=== PATIENT | female | born 1960 | race Caucasian/White ===

== ENCOUNTER → 2017-01-03 | Outpatient (CLI) | payer MEDICARE, BC ==
--- NOTE | 2017-01-03 19:03 | MR ---
EXAMINATION TYPE: MR abdomen wo/w con DATE OF EXAM: 01/03/2017 COMPARISON: Outside CT abdomen October 14, 2016. HISTORY: Lung cancer and abdominal pain per order. Increased left-sided abdominal pain near G-tube pe r patient. Tumor behind stomach and pancreas. CONTRAST: Standard multiplanar, multisequence MRI departmental protocol utilizing 12 mL intravenous MultiHance gadolinium contrast. Scanning is of the abdomen. FINDINGS: Exam is suboptimal as is performed under routine abdominal imaging protocol and not dedicat ed pancreatic imaging protocol. There is redemonstration of epigastric mass just below left hemidiaphragm with indistinct margins fro m the posterior medial wall of the stomach and superior aspect of the distal pancreatic body. There i s heterogeneous postcontrast enhancement. Mass is difficult to accurately measure due to indistinct f at planes from stomach and pancreas measuring approximately 5.0 x 4.2 cm on axial image 93 series 80 1 x 2.7 cm craniocaudal dimension on coronal image 15. Pancreas inferior to this shows no suspicious ductal dilatation. Lesion is suspected anterior to normal size left adrenal gland seen best image 31 series 601. There are a few simple appearing cysts scattered throughout the liver. There is no concerning renal m ass or hydronephrosis. Spleen is unremarkable. No biliary dilatation is evident. Gallbladder is surgi acosta absent. There is artifact from surgical hardware in the lower lumbar spine. There is artifacts from percutane ous gastrostomy tube in the inferior body which is felt satisfactory in position. There is artifact f rom surgical change in the anterior abdominal wall is noted. IMPRESSION: Overall no significant change from outside CT, heterogeneous epigastric mass worrisome for neoplasm, differential includes metastatic lesion, pancreatic neoplasm, and gastric neoplasm. Consider endoscop ic ultrasound for sampling or possibly CT-guided fine-needle aspiration if has not been performed.
== END | disposition home or self-care (01) ==
LOC: RADMRIMAIN 12:12
PROVIDERS: ATTEND Internal Medicine Hematology & Oncology
DX: R93.5 Abnormal findings on diagnostic imaging of other abdominal regions, including retroperitoneum (principal); C34.90 Malignant neoplasm of unspecified part of unspecified bronchus or lung; R10.9 Unspecified abdominal pain
CPT/HCPCS: 74183; A9577

== ENCOUNTER 2017-02-27 11:38 | Emergency (ER) | payer MEDICARE, BC ==
--- NOTE | 2017-02-27 12:37 | ED ---
General Adult HPI - General Chief complaint: Weakness Stated complaint: LOW HEMOGLOBIN, SENT BY DR NICOLE Time Seen by Provider: 02/27/17 12:25 Source: patient, family, RN notes reviewed Mode of arrival: wheelchair Limitations: no limitations - History of Present Illness Initial comments: Patient is a pleasant 56-year-old female presenting to the emergency department with fatigue and weakness. Symptoms have progressed over several weeks. Patient has a known history of lung cancer with abdominal metastasis. Patient did have a Whipple procedure done secondary to this. Patient is currently undergoing intravenous chemotherapy. Patient feels weak and fatigued. Patient has dyspnea with exertion. Patient has palpitations with exertion. Patient feels near syncopal with exertion or standing. Patient was seen by Dr. Blake today and advised to come to the emergency department. Patient had blood work done with white blood cell count of 2. , hemoglobin 5.8, and platelet count of 21. Patient has had some gingival bleeding, mostly yesterday. None today. No black tarry stools. No other areas of bleeding. - Related Data Home Medications Medication Instructions Recorded Confirmed Acetaminophen [Tylenol Extra 500 mg PO DAILY PRN 02/27/17 02/27/17 Strength] Citalopram Hydrobromide [CeleXA] 20 mg PO DAILY 02/27/17 02/27/17 Cyanocobalamin [Vitamin B-12 1,000 mcg SQ Q90D 02/27/17 02/27/17 Injection] Diazepam [Valium] 5 mg PO TID 02/27/17 02/27/17 Fluticasone Nasal [place] [Flonase 1 spray EA NOSTRIL BID 02/27/17 02/27/17 Nasal [place]] Fluticasone/Salmeterol [Advair 1 puff INHALATION RT-HS 02/27/17 02/27/17 250-50 Diskus] Folic Acid 1 mg PO DAILY 02/27/17 02/27/17 Ipratropium [place] [Atrovent Hfa] 2 puff INHALATION RT-QID 02/27/17 02/27/17 LORazepam [Ativan] 1 mg PO TID 02/27/17 02/27/17 Metoclopramide Oral Soln [Reglan 10 mg PO Q6H 02/27/17 02/27/17 Oral Soln] Multivitamins, Thera [Multivitamin 1 tab PO DAILY 02/27/17 02/27/17 (formulary)] Omeprazole [PriLOSEC] 20 mg PO AC-BID 02/27/17 02/27/17 oxyCODONE HCL [Roxicodone] 5 mg PO Q4HR 02/27/17 02/27/17 Allergies Allergy/AdvReac Type Severity Reaction Status Date / Time cinnamon Allergy Anaphylaxis Verified 02/27/17 13:22 iron Allergy Rash/Hives Verified 02/27/17 13:22 morphine Allergy Rash/Hives Verified 02/27/17 13:22 Sulfa (Sulfonamide Allergy Rash/Hives Verified 02/27/17 13:22 Antibiotics) Review of Systems ROS Statement: Those systems with pertinent positive or pertinent negative responses have been documented in the HPI. ROS Other: All systems not noted in ROS Statement are negative. Constitutional: Denies: fever Eyes: Denies: eye pain ENT: Denies: ear pain Respiratory: Denies: cough Cardiovascular: Denies: chest pain Endocrine: Reports: fatigue Gastrointestinal: Reports: abdominal pain (Chronic and unchanged). Denies: melena, hematochezia Genitourinary: Denies: dysuria, hematuria Musculoskeletal: Denies: back pain Skin: Denies: rash Neurological: Denies: weakness Past Medical History Past Medical History: Cancer Additional Past Medical History / Comment(s): CANCER LUNG AND ABD( STOMACH AND PANCREAS) History of Any Multi-Drug Resistant Organisms: None Reported Additional Past Surgical History / Comment(s): FEEDING TUBE- G-TUBE, PORT A CATH, WHIPPLE SX- UNSUSCESSFUL Past Psychological History: No Psychological Hx Reported Smoking Status: Former smoker Past Alcohol Use History: None Reported Past Drug Use History: None Reported General Exam Limitations: no limitations General appearance: alert, in no apparent distress Head exam: Present: atraumatic Eye exam: Present: other (Pelvic conjunctiva) ENT exam: Present: normal oropharynx, other (Poor dentition however no swelling or bleeding.) Neck exam: Present: normal inspection Respiratory exam: Present: normal lung sounds bilaterally Cardiovascular Exam: Present: regular rate, normal rhythm GI/Abdominal exam: Present: soft, tenderness (Mild to moderate diffuse tenderness which patient states is chronic). Absent: distended Extremities exam: Present: normal inspection Neurological exam: Present: alert Psychiatric exam: Present: normal affect, normal mood Skin exam: Present: normal color Course Vital Signs 02/27/17 02/27/17 02/27/17 12:01 13:40 14:04 Temperature 98.9 F Pulse Rate 76 72 86 Respiratory 18 16 16 Rate Blood Pressure 113/55 119/65 137/76 O2 Sat by Pulse 100 99 99 Oximetry - Reevaluation(s) Reevaluation #1: 02/27/17 12:52 Case was discussed in detail with Dr. Nunez who recommends 2 units of PRBCs. He feels patient can be discharged following blood transfusion. Patient and family were updated. EKG Findings - EKG Comments: EKG Findings:: Normal sinus rhythm 78. For screening AV block CO of 204. QRS 70. QT 382. QTC 435. Normal axis. Normal QRS. Normal ST-T. Medical Decision Making - Lab Data Result diagrams: 02/27/17 13:21 02/27/17 13:21 Lab Results 02/27/17 02/27/17 02/27/17 Range/Units 13:21 13:21 13:21 WBC 2.4 L (3.8-10.6) k/uL RBC 1.72 L (3.80-5.40) m/uL Hgb 5.6 L* (11.4-16.0) gm/dL Hct 17.1 L* (34.0-46.0) % MCV 99.7 (80.0-100.0) fL MCH 32.8 (25.0-35.0) pg MCHC 32.9 (31.0-37.0) g/dL RDW 18.7 H (11.5-15.5) % Plt Count 22 L* (150-450) k/uL Neutrophils % (Manual) 33.0 % Lymphocytes % (Manual) 59.0 % Monocytes % (Manual) 6.0 % Eosinophils % (Manual) 2.0 % Neutrophils # (Manual) 0.8 L (1.3-7.7) k/uL Lymphocytes # (Manual) 1.4 (1.0-4.8) k/uL Monocytes # (Manual) 0.1 (0-1.0) k/uL Eosinophils # (Manual) 0.0 (0-0.7) k/uL Nucleated RBCs 0 (0-0) /100 WBC Manual Slide Review Performed Anisocytosis Slight Macrocytosis Moderate PT 10.5 (9.0-12.0) sec INR 1.0 (<1.2) APTT 27.1 (22.0-30.0) sec Sodium 136 L (137-145) mmol/L Potassium 3.8 (3.5-5.1) mmol/L Chloride 106 (98-107) mmol/L Carbon Dioxide 25 (22-30) mmol/L Anion Gap 5 mmol/L BUN 12 (7-17) mg/dL Creatinine 0.63 (0.52-1.04) mg/dL Est GFR (MDRD) Af Amer >60 (>60 ml/min/1.73 sqM) Est GFR (MDRD) Non-Af >60 (>60 ml/min/1.73 sqM) Glucose 78 (74-99) mg/dL Calcium 8.7 (8.4-10.2) mg/dL Total Bilirubin 0.3 (0.2-1.3) mg/dL AST 29 (14-36) U/L ALT 44 (9-52) U/L Alkaline Phosphatase 40 (38-126) U/L Total Protein 5.4 L (6.3-8.2) g/dL Albumin 3.2 L (3.5-5.0) g/dL Blood Type Blood Type Recheck Antibody Screen Crossmatch Spec Expiration Date 02/27/17 Range/Units 13:21 WBC (3.8-10.6) k/uL RBC (3.80-5.40) m/uL Hgb (11.4-16.0) gm/dL Hct (34.0-46.0) % MCV (80.0-100.0) fL MCH (25.0-35.0) pg MCHC (31.0-37.0) g/dL RDW (11.5-15.5) % Plt Count (150-450) k/uL Neutrophils % (Manual) % Lymphocytes % (Manual) % Monocytes % (Manual) % Eosinophils % (Manual) % Neutrophils # (Manual) (1.3-7.7) k/uL Lymphocytes # (Manual) (1.0-4.8) k/uL Monocytes # (Manual) (0-1.0) k/uL Eosinophils # (Manual) (0-0.7) k/uL Nucleated RBCs (0-0) /100 WBC Manual Slide Review Anisocytosis Macrocytosis PT (9.0-12.0) sec INR (<1.2) APTT (22.0-30.0) sec Sodium (137-145) mmol/L Potassium (3.5-5.1) mmol/L Chloride (98-107) mmol/L Carbon Dioxide (22-30) mmol/L Anion Gap mmol/L BUN (7-17) mg/dL Creatinine (0.52-1.04) mg/dL Est GFR (MDRD) Af Amer (>60 ml/min/1.73 sqM) Est GFR (MDRD) Non-Af (>60 ml/min/1.73 sqM) Glucose (74-99) mg/dL Calcium (8.4-10.2) mg/dL Total Bilirubin (0.2-1.3) mg/dL AST (14-36) U/L ALT (9-52) U/L Alkaline Phosphatase (38-126) U/L Total Protein (6.3-8.2) g/dL Albumin (3.5-5.0) g/dL Blood Type A Positive Blood Type Recheck No Antibody Screen NEGATIVE Crossmatch See Detail Spec Expiration Date 03/02/20172320 Disposition Clinical Impression: Anemia Disposition: HOME SELF-CARE Condition: Stable Instructions: Anemia (ED) Additional Instructions: Please follow-up to primary care physician and oncologist in the beginning of the week. Return for increased weakness, shortness of breath, fevers, bleeding , worsening symptoms or other concerns. Referrals: Ron Lee MD [Primary Care Provider] - 1-2 days Abdifatah Nicole MD [STAFF PHYSICIAN] - 1-2 days Time of Disposition: 14:46
[2017-02-27 13:39] LABS: Anisocytosis Slight; CHCM 34.3; HDW 2.46; MCH 32.8 pg (25.0-35.0); MCHC 32.9 g/dL (31.0-37.0); MCV 99.7 fL (80.0-100.0); Macrocytosis Moderate; Mean Platelet Volume 10.4; RBC 1.72 m/uL (3.80-5.40); RDW 18.7 % (11.5-15.5); WBC 2.4 k/uL (3.8-10.6); WBC (Perox) 2.42
[2017-02-27 13:42] VITALS: RESP 16
[2017-02-27 13:42] LABS: HCT 17.1 % (34.0-46.0); HGB 5.6 gm/dL (11.4-16.0)
[2017-02-27 13:43] LABS: Partial Thromboplastin Time 27.1 sec (22.0-30.0); Prothrombin Time 10.5 sec (9.0-12.0)
[2017-02-27 14:10] LABS: Add Differential Manual Differential
[2017-02-27 14:14] LABS: Nucleated Red Blood Cells 0 /100 WBC (0-0); Total Cells Counted 100
[2017-02-27 14:15] LABS: Manual Review Performed
[2017-02-27 14:31] LABS: ALT 44 U/L (9-52); AST 29 U/L (14-36); Alkaline Phosphatase 40 U/L (38-126); Anion Gap 5 mmol/L; Blood Urea Nitrogen 12 mg/dL (7-17); Calcium 8.7 mg/dL (8.4-10.2); Carbon Dioxide 25 mmol/L (22-30); Chloride 106 mmol/L (98-107); Glucose 78 mg/dL (74-99); Non-African American GFR(MDRD) >60 (>60 ml/min/1.73 sqM); Potassium 3.8 mmol/L (3.5-5.1); Sodium 136 mmol/L (137-145); Total Bilirubin 0.3 mg/dL (0.2-1.3); Total Protein 5.4 g/dL (6.3-8.2)
[2017-02-27 17:20] VITALS: BP 140/81; PULSE 64; TEMP 97.4
== END 2017-02-27 17:30 | disposition home or self-care (01) ==
LOC: EC 11:38
DX: D64.9 Anemia, unspecified (principal); Z85.07 Personal history of malignant neoplasm of pancreas; Z85.028 Personal history of other malignant neoplasm of stomach; Z85.118 Personal history of other malignant neoplasm of bronchus and lung; Z87.891 Personal history of nicotine dependence; Z88.2 Allergy status to sulfonamides; Z88.5 Allergy status to narcotic agent; Z91.048 Other nonmedicinal substance allergy status; Z91.018 Allergy to other foods; Z79.51 Long term (current) use of inhaled steroids; Z79.891 Long term (current) use of opiate analgesic; Z79.899 Other long term (current) drug therapy
CPT/HCPCS: 99285; 36415; 93005; 86900; 86901; 80053; 85025; 85610; 85730; 86850; 86920; P9016

== ENCOUNTER → 2017-03-26 | Outpatient (CLI) | payer MEDICARE, BC ==
[2017-03-26 07:51] LABS: Blood Urea Nitrogen 7 mg/dL (7-17); Non-African American GFR(MDRD) >60 (>60 ml/min/1.73 sqM)
--- NOTE | 2017-03-26 09:34 | CT ---
EXAMINATION TYPE: CT abdomen pelvis w con DATE OF EXAM: 03/26/2017 REFERENCE: NONE HISTORY: R10.84 generalized abdominal pain HISTORY: Patient complains of luq pain around her PEG tube. REFERENCE: NONE CT DLP: 330.2 mGy Automated exposure control for dose reduction was used. TECHNIQUE: Helical acquisition through the abdomen and pelvis was obtained following the oral ingesti on of with Oral Contrast and following intravenous administration of 100 mL of Omnipaque 300. The saman a was reformatted in axial, coronal and sagittal projections. FINDINGS: There are bullous changes at the right lung base. There is no pleural fluid. There is 2.8 mm of pericardial thickening or fluid. The heart is not enlarged. Within the abdomen, the gallbladder is been removed. The liver is normal in size. There are 2 small c ystic lesions, one in the anterior and one in the posterior segment of the right lobe of the liver. T hese were described previously. The spleen is unremarkable. Both adrenal glands are normal. Both kidneys demonstrate function and appear morphologically normal. There is no significant retroperitoneal, iliac or inguinal adenopathy. The uterus and ovaries are not visualized. The bladder is unremarkable. There is no significant diverticular change. There is thickening of the proximal transverse colon as well as the distal transverse colon. The desc ending colon is collapsed and it is difficult to assess wall thickness. The appendix is normal. Small bowel loops are unremarkable. There is no free fluid and no free air. There is been a previous interpedicular fusion at L4 and L5. There is been a laminectomy at these lev els. There is a degenerative grade 1 spondylolisthesis of C3 on C4. There is marked facet arthropathy at this level. No bony destructive lesion is seen. IMPRESSION: 1. THICKENING OF THE TRANSVERSE AND DESCENDING COLONS. CORRELATE FOR COLITIS. 2. EMPHYSEMATOUS CHANGE WITHIN THE LUNGS. 3. CYSTIC CHANGE WITHIN THE LIVER, PREVIOUSLY DESCRIBED. 4. POSTSURGICAL AND DEGENERATIVE CHANGE WITHIN THE SPINE. 5. 2.8 MM PERICARDIAL THICKENING OR FLUID.
== END | disposition home or self-care (01) ==
LOC: RADCTMAIN 07:19
PROVIDERS: ATTEND Surgery
DX: K76.89 Other specified diseases of liver (principal); K63.89 Other specified diseases of intestine; Z98.890 Other specified postprocedural states
CPT/HCPCS: 82565; 84520; 74177; 36415; Q9967

== ENCOUNTER → 2017-09-17 | Outpatient (CLI) | payer MEDICARE, BC ==
[2017-09-17 07:41] LABS: Blood Urea Nitrogen 20 mg/dL (7-17)
--- NOTE | 2017-09-17 20:41 | CT ---
EXAMINATION TYPE: CT abdomen pelvis w con DATE OF EXAM: 09/17/2017 COMPARISON: 03/26/2017 INDICATION: Lung CA, RUQ pain DLP: 998 mGycm, Automated exposure control for dose reduction was used. CONTRAST: 80 mL of Visipaque 320. Study performed with Oral Contrast TECHNIQUE: Axial images were obtained from above the diaphragm to the pubic rami in the axial plane a t 5 mm thick sections. Reconstructed images are reviewed on the computer in the coronal plane. FINDINGS: Limited CT sections are obtained the lung bases. The lung bases are clear. Minimal scarring above t he right diaphragm is not excluded emphysematous changes are present. CT ABDOMEN: Liver: There is a 0.7 cm cyst within the superior right lobe liver. This was present previously. Hans tional smaller punctate hypodensities are within the liver could be small additional cysts. These fran ear present previously. Spleen: Normal Pancreas: Normal Adrenal glands: The adrenal glands are normal. Gallbladder: Surgically absent Kidneys: No masses are evident. No hydronephrosis is present. No cysts are present. Delayed images were obtained through the kidneys, which remain unremarkable. Aorta: Vascular calcification is within the aorta. Inferior vena cava: Normal. CT PELVIS: Loops of bowel within the abdomen and pelvis are normal. There are loops of bowel which are incom pletely distended or lack oral contrast limiting their evaluation. Appendix: Normal as visualized. Urinary bladder: Normal. Genitourinary structures: Uterus and ovaries are not identified. Osseous structures: No suspicious lytic or sclerotic lesions. Postsurgical changes are within the low er lumbar spine. IMPRESSIONS: 1. Nonsuspicious findings appear stable from the comparison
== END | disposition home or self-care (01) ==
LOC: RADCTMAIN 07:06
PROVIDERS: ATTEND Internal Medicine Hematology & Oncology
DX: C34.11 Malignant neoplasm of upper lobe, right bronchus or lung (principal); R10.11 Right upper quadrant pain
CPT/HCPCS: 82565; 84520; 74177; 36415; Q9967

== ENCOUNTER 2017-10-11 15:41 | Inpatient (IN) | payer MEDICARE, BC ==
[2017-10-11] MEDS ORDERED: SODIUM CHLORIDE 0.9% 1,000 ML IV STA ×2 (16:30)
[2017-10-11] MEDS ORDERED: KETOROLAC 30 MG/ML 1 ML VIAL IVP STA (16:31)
--- NOTE | 2017-10-11 16:33 | ED ---
Abdominal Pain HPI - General Chief Complaint: Abdominal Pain Stated Complaint: Abd pain Time Seen by Provider: 10/11/17 16:15 Source: patient, family, RN notes reviewed Mode of arrival: ambulatory Limitations: no limitations - History of Present Illness Initial Comments: This is a patient with a history of lung cancer and is now metastatic to the stomach as well as history of pancreatic cancer who presents with complaints of feeling weak nausea vomiting abdominal pain some difficulty breathing. No overt fevers or chills or sweats he does look pale according to family members. She does have a history of anemia as well. MD Complaint: abdominal pain, other - Related Data Home Medications Medication Instructions Recorded Confirmed Acetaminophen [Tylenol Extra 500 mg PO DAILY PRN 02/27/17 10/11/17 Strength] Citalopram Hydrobromide [CeleXA] 20 mg PO DAILY 02/27/17 10/11/17 Diazepam [Valium] 5 mg PO TID 02/27/17 10/11/17 Fluticasone Nasal [place] [Flonase 1 spray EA NOSTRIL BID 02/27/17 10/11/17 Nasal [place]] Fluticasone/Salmeterol [Advair 1 puff INHALATION RT-HS 02/27/17 10/11/17 250-50 Diskus] Ipratropium [place] [Atrovent Hfa] 2 puff INHALATION RT-QID 02/27/17 10/11/17 Metoclopramide Oral Soln [Reglan 10 mg PO Q6H 02/27/17 10/11/17 Oral Soln] Multivitamins, Thera [Multivitamin 1 tab PO DAILY 02/27/17 10/11/17 (formulary)] Omeprazole [PriLOSEC] 20 mg PO AC-BID 02/27/17 10/11/17 oxyCODONE HCL [Roxicodone] 5 mg PO Q4HR 02/27/17 10/11/17 Opdivo (Unknown Dose) 1 dose IV Q14D 10/11/17 10/11/17 Pd-1 1 dose IV Q14D 10/11/17 10/11/17 Allergies Allergy/AdvReac Type Severity Reaction Status Date / Time cinnamon Allergy Anaphylaxis Verified 10/11/17 16:21 iron Allergy Rash/Hives Verified 10/11/17 16:21 levofloxacin [From Levaquin] Allergy Unknown Verified 10/11/17 16:21 morphine Allergy Rash/Hives Verified 10/11/17 16:21 Sulfa (Sulfonamide Allergy Rash/Hives Verified 10/11/17 16:21 Antibiotics) Review of Systems ROS Statement: Those systems with pertinent positive or pertinent negative responses have been documented in the HPI. ROS Other: All systems not noted in ROS Statement are negative. Past Medical History Past Medical History: Cancer Additional Past Medical History / Comment(s): CANCER LUNG AND ABD( STOMACH AND PANCREAS) History of Any Multi-Drug Resistant Organisms: None Reported Additional Past Surgical History / Comment(s): FEEDING TUBE- G-TUBE, PORT A CATH, WHIPPLE SX- UNSUSCESSFUL Past Psychological History: No Psychological Hx Reported Smoking Status: Former smoker Past Alcohol Use History: None Reported Past Drug Use History: None Reported General Exam - General Exam Comments Initial Comments: Is a well-developed asthenic appearing female Limitations: no limitations General appearance: alert, anxious, in distress Head exam: Present: atraumatic, normocephalic, normal inspection Eye exam: Present: normal appearance, PERRL, EOMI. Absent: scleral icterus, conjunctival injection, periorbital swelling ENT exam: Present: mucous membranes dry Neck exam: Present: normal inspection. Absent: tenderness, meningismus, lymphadenopathy Respiratory exam: Present: normal lung sounds bilaterally. Absent: respiratory distress, wheezes, rales, rhonchi, stridor Cardiovascular Exam: Present: regular rate, normal rhythm, normal heart sounds. Absent: systolic murmur, diastolic murmur, rubs, gallop, clicks GI/Abdominal exam: Present: soft, tenderness (Tenderness palpation no definite guarding rebound masses or bruits), normal bowel sounds. Absent: distended, guarding, rebound, rigid Extremities exam: Present: normal inspection, full ROM, normal capillary refill. Absent: tenderness, pedal edema, joint swelling, calf tenderness Back exam: Present: normal inspection Neurological exam: Present: alert, oriented X3, CN II-XII intact Psychiatric exam: Present: normal affect, normal mood Skin exam: Present: warm, dry, intact, normal color. Absent: rash Course Vital Signs 10/11/17 10/11/17 15:48 17:55 Temperature 97.3 F L Pulse Rate 66 60 Respiratory 18 17 Rate Blood Pressure 164/74 174/80 O2 Sat by Pulse 100 100 Oximetry - Reevaluation(s) Reevaluation #1: 10/11/17 18:06 Reevaluation patient revealed that she still nauseated has some abdominal discomfort. Medical Decision Making - Medical Decision Making I did discuss the findings with the patient family as well as with . Patient will be admitted nothing by mouth IV fluids and nausea control pain control - Lab Data Result diagrams: 10/11/17 16:37 10/11/17 16:37 Lab Results 10/11/17 10/11/17 10/11/17 Range/Units 16:37 16:37 16:37 WBC 9.2 (3.8-10.6) k/uL RBC 3.56 L (3.80-5.40) m/uL Hgb 12.1 (11.4-16.0) gm/dL Hct 34.9 (34.0-46.0) % MCV 98.1 (80.0-100.0) fL MCH 33.9 (25.0-35.0) pg MCHC 34.5 (31.0-37.0) g/dL RDW 13.1 (11.5-15.5) % Plt Count 289 (150-450) k/uL Neutrophils % 88 % Lymphocytes % 7 % Monocytes % 4 % Eosinophils % 0 % Basophils % 0 % Neutrophils # 8.1 H (1.3-7.7) k/uL Lymphocytes # 0.6 L (1.0-4.8) k/uL Monocytes # 0.4 (0-1.0) k/uL Eosinophils # 0.0 (0-0.7) k/uL Basophils # 0.0 (0-0.2) k/uL Sodium 140 (137-145) mmol/L Potassium 3.7 (3.5-5.1) mmol/L Chloride 104 (98-107) mmol/L Carbon Dioxide 24 (22-30) mmol/L Anion Gap 12 mmol/L BUN 18 H (7-17) mg/dL Creatinine 0.95 (0.52-1.04) mg/dL Est GFR (CKD-EPI)AfAm 78 (>60 ml/min/1.73 sqM) Est GFR (CKD-EPI)NonAf 68 (>60 ml/min/1.73 sqM) Glucose 159 H (74-99) mg/dL Calcium 10.0 (8.4-10.2) mg/dL Magnesium 1.9 (1.6-2.3) mg/dL Total Bilirubin 0.7 (0.2-1.3) mg/dL AST 23 (14-36) U/L ALT 30 (9-52) U/L Alkaline Phosphatase 91 (38-126) U/L Total Creatine Kinase 50 (30-135) U/L CK-MB (CK-2) 0.4 (0.0-2.4) ng/mL CK-MB (CK-2) Rel Index 0.8 Troponin I <0.012 (0.000-0.034) ng/mL Total Protein 6.8 (6.3-8.2) g/dL Albumin 4.1 (3.5-5.0) g/dL Amylase 48 (30-110) U/L Lipase 31 (23-300) U/L - Radiology Data Radiology results: report reviewed (I did review the imaging and reports no acute findings. Rectal lungs the abdominal x-ray does show evidence of ileus.) , image reviewed Disposition Clinical Impression: Intractable vomiting with nausea, Abdominal pain, Ileus, Lung cancer Disposition: ADMITTED IP TO THIS [facility] Condition: Stable Referrals: Alaina Calderón MD [STAFF PHYSICIAN] - 1-2 days
[2017-10-11] MEDS ORDERED: ONDANSETRON 4 MG/2 ML VIAL IVP STA (16:48)
[2017-10-11 16:57] LABS: Basophils % (A) 0 %; Eosinophils % (A) 0 %; HCT 34.9 % (34.0-46.0); HGB 12.1 gm/dL (11.4-16.0); Lymphocytes # (A) 0.6 k/uL (1.0-4.8); Lymphocytes % (A) 7 %; MCH 33.9 pg (25.0-35.0); MCHC 34.5 g/dL (31.0-37.0); MCV 98.1 fL (80.0-100.0); Mean Platelet Volume 6.9; Monocytes # (A) 0.4 k/uL (0-1.0); Monocytes % (A) 4 %; Neutrophils # (A) 8.1 k/uL (1.3-7.7); Neutrophils % (A) 88 %; Platelet Count 289 k/uL (150-450); RBC 3.56 m/uL (3.80-5.40); RDW 13.1 % (11.5-15.5); WBC 9.2 k/uL (3.8-10.6)
--- NOTE | 2017-10-11 17:13 | XR ---
EXAMINATION TYPE: XR chest 2V DATE OF EXAM: 10/11/2017 COMPARISON: NONE HISTORY: Chest pain TECHNIQUE: Frontal and lateral views of the chest are obtained. FINDINGS: There is pulmonary hyperinflation and biapical lucency as well as increased anterior poste rior diameter of the chest compatible with underlying COPD. Right-sided Mediport terminates in the ca voatrial junction. There is no focal air space opacity, pleural effusion, or pneumothorax seen. The cardiac silhouette size is within normal limits. The osseous structures are intact. Multilevel mild degenerative changes of the thoracic spine are noted. Cholecystectomy clips are seen within the righ t upper quadrant. The patient's known lung cancer should be followed with CT. IMPRESSION: Emphysematous changes with no acute cardiopulmonary process.
--- NOTE | 2017-10-11 17:15 | XR ---
EXAMINATION TYPE: XR abdomen 1V DATE OF EXAM: 10/11/2017 5:04 PM CLINICAL HISTORY: Abdominal pain. TECHNIQUE: Single supine KUB image of the abdomen is obtained. COMPARISON: None. FINDINGS: Lucencies along the right and left abdomen extend beyond the egjck-on-laob on the left and therefore artifactual rather than gross pneumoperitoneum. rScattered multiple loops of small bowel ar e mildly dilated up to 3.5 cm. There is gaseous distention of the stomach. Postsurgical changes of th e lower lumbar spine and cholecystectomy clips are noted. The lung bases are clear and the osseous st ructures are intact. IMPRESSION: Mild gaseous dilatation of multiple loops of small bowel favoring ileus. Short-term follo w-up exam is recommended to evaluate for progression or resolution.
[2017-10-11 17:24] LABS: Creatine Kinase 50 U/L (30-135)
[2017-10-11 17:36] LABS: Creatine Kinase MB 0.4 ng/mL (0.0-2.4); Troponin I <0.012 ng/mL (0.000-0.034)
[2017-10-11] MEDS ORDERED: fentaNYL (PF) 50 MCG/ML 2 ML AMP IV STA (17:36)
[2017-10-11 17:37] LABS: Albumin 4.1 g/dL (3.5-5.0); Magnesium 1.9 mg/dL (1.6-2.3); Potassium 3.7 mmol/L (3.5-5.1); Total Bilirubin 0.7 mg/dL (0.2-1.3); Total Protein 6.8 g/dL (6.3-8.2)
[2017-10-11] MEDS ORDERED: METOCLOPRAMIDE 5 MG/ML 2 ML VIAL IVP STA (17:58)
[2017-10-11] MEDS ORDERED: NALOXONE 0.4 MG/ML 1 ML VIAL IV PRN (18:08)
[2017-10-11] MEDS ORDERED: 0.9% NACL WITH KCL 20 MEQ/L 1,000 ML IV ONE (18:45)
[2017-10-11] MEDS ORDERED: IPRATROPIUM-ALBUTEROL 3 ML NEB INHALATION PRN (19:58)
[2017-10-11] MEDS: 0.9% NACL WITH KCL 20 MEQ/L 1,000 ML IV SCH (22:00)
[2017-10-11] MEDS: ACETAMINOPHEN IV (For NPO) 1,000 MG in SALINE 1 100ML.BAG IVPB SCH (23:44)
[2017-10-11] MEDS: METOCLOPRAMIDE 5 MG/ML 2 ML VIAL IVP PRN (23:44)
[2017-10-12] MEDS ORDERED: IPRATROPIUM-ALBUTEROL 3 ML NEB INHALATION SCH (02:00)
[2017-10-12 03:39] VITALS: BMI 19.9
[2017-10-12] MEDS: IPRATROPIUM-ALBUTEROL 3 ML NEB INHALATION SCH ×5 (04:35→20:34)
[2017-10-12] MEDS: 0.9% NACL WITH KCL 20 MEQ/L 1,000 ML IV SCH ×2 (05:47→22:44)
[2017-10-12] MEDS: METOCLOPRAMIDE 5 MG/ML 2 ML VIAL IVP PRN ×2 (05:47→19:40)
[2017-10-12] MEDS: ACETAMINOPHEN IV (For NPO) 1,000 MG in SALINE 1 100ML.BAG IVPB SCH ×4 (05:47→22:44)
[2017-10-12] MEDS: PANTOPRAZOLE 40 MG/10 ML VIAL IV SCH (10:28)
[2017-10-12] MEDS ORDERED: ACETAMINOPHEN TAB 500 MG TAB PO PRN (11:56)
[2017-10-12] MEDS ORDERED: NON-FORMULARY DRUG (Omeprazole 20 MG) PO SCH (12:00)
[2017-10-12] MEDS ORDERED: NON-FORMULARY DRUG (Ipratropium Bromide [Atrovent Hfa] 2 PUFF) INHALATION SCH (12:00)
[2017-10-12] MEDS ORDERED: METOCLOPRAMIDE ORAL SOLN 10 MG/10 ML CUP PO SCH (12:00)
--- NOTE | 2017-10-12 16:22 | P.HPIM ---
History of Present Illness H&P Date: 10/12/17 Chief Complaint: nausea and vomiting associated with diarrhea 56 years old female patient of Dr. Lee and Dr. 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 Last bowel movement 6 PM yesterday. She states she has 3 bowel movements yesterday. Labs done in the ER was unremarkable except for glucose of 159. Abdominal x-ray suggested some finding of EDS. Patient was kept nothing by mouth after midnight. On evaluation this morning patient denied any nausea, vomiting, abdominal pain, change in bowel habits. She denies any bowel movement since morning. Denies any fever or chills. Patient admits that she takes pain medication and gets constipated intermittently. She was not using any bowel regimen as she was having regular bowel movements on previous use of medication for constipation and she ended abruptly stopped it as she thought she would not needed. Patient was started on clear liquid diet this morning which patient could not tolerate due to increased nausea. Dr. Browning to see the patient for ileus Review of Systems Constitutional: Reports chronic pain, Reports weight loss, Denies anorexia, Denies chills, Denies fatigue, Denies fever, Denies lethargy, Denies malaise Eyes: denies dry eye, denies itching, denies pain, denies photophobia Ears, nose, mouth and throat: Denies ant. neck pain, Denies dysphagia, Denies epistaxis, Denies headache, Denies hoarseness Cardiovascular: Denies chest pain, Denies decreased exercise tolerance, Denies dyspnea on exertion, Denies edema, Denies high blood pressure, Denies irregular heart beat, Denies leg edema Respiratory: Denies congestion, Denies cough with sputum, Denies home oxygen Gastrointestinal: Reports abdominal pain, Reports change in bowel habits, Reports loss of appetite, Reports nausea, Reports vomiting, Denies bloating, Denies BRBPR, Denies heartburn, Denies hematemesis, Denies hematochezia Musculoskeletal: Denies arm numbness/tingling, Denies leg numbness/tingling, Denies limitation of motion, Denies morning stiffness, Denies muscle cramps, Denies muscle weakness Integumentary: Denies darkening of skin, Denies onychomycosis, Denies rash, Denies striae, Denies wounds Neurological: Denies aphasia, Denies burning pain, Denies change in mentation, Denies hearing difficulties, Denies lack of coordination, Denies loss of vision , Denies motor disturbance, Denies syncope Psychiatric: Denies anxiety attacks, Denies depression Endocrine: Denies excessive sweating, Denies excessive thirst, Denies heat intolerance, Denies high blood sugars, Denies palpitations Past Medical History Past Medical History: Cancer Additional Past Medical History / Comment(s): CANCER LUNG METASTATIC TO STOMACH AND BLOOD VESSELS close to THE PANCREAS History of Any Multi-Drug Resistant Organisms: None Reported Additional Past Surgical History / Comment(s): FEEDING TUBE- G-TUBE, PORT A CATH, WHIPPLE SX- UNSUSCESSFUL Past Psychological History: No Psychological Hx Reported Smoking Status: Former smoker Past Alcohol Use History: None Reported Past Drug Use History: None Reported - Past Family History Mother Family Medical History: No Reported History Additional Family Medical History / Comment(s): 3 uncles of cancer but does not know what kind. No history of cancer in mother or father. Patient is has 2 kids with no significant medical problems Medications and Allergies Home Medications Medication Instructions Recorded Confirmed Type Acetaminophen [Tylenol Extra 500 mg PO DAILY PRN 02/27/17 10/11/17 History Strength] Citalopram Hydrobromide [CeleXA] 20 mg PO DAILY 02/27/17 10/11/17 History Diazepam [Valium] 5 mg PO TID 02/27/17 10/11/17 History Fluticasone Nasal [place] [Flonase 1 spray EA NOSTRIL BID 02/27/17 10/11/17 History Nasal [place]] Fluticasone/Salmeterol [Advair 1 puff INHALATION RT-HS 02/27/17 10/11/17 History 250-50 Diskus] Ipratropium [place] [Atrovent Hfa] 2 puff INHALATION RT-QID 02/27/17 10/11/17 History Metoclopramide Oral Soln [Reglan 10 mg PO Q6H 02/27/17 10/11/17 History Oral Soln] Multivitamins, Thera [Multivitamin 1 tab PO DAILY 02/27/17 10/11/17 History (formulary)] Omeprazole [PriLOSEC] 20 mg PO AC-BID 02/27/17 10/11/17 History oxyCODONE HCL [Roxicodone] 5 mg PO Q4HR 02/27/17 10/11/17 History Opdivo (Unknown Dose) 1 dose IV Q14D 10/11/17 10/11/17 History Pd-1 1 dose IV Q14D 10/11/17 10/11/17 History Allergies Allergy/AdvReac Type Severity Reaction Status Date / Time cinnamon Allergy Anaphylaxis Verified 10/11/17 16:21 iron Allergy Rash/Hives Verified 10/11/17 16:21 levofloxacin [From Levaquin] Allergy Unknown Verified 10/11/17 16:21 morphine Allergy Rash/Hives Verified 10/11/17 16:21 Sulfa (Sulfonamide Allergy Rash/Hives Verified 10/11/17 16:21 Antibiotics) Physical Exam Vitals: Vital Signs Temp Pulse Pulse Resp BP BP Pulse Ox 10/12/17 09:36 88 10/12/17 09:25 88 18 10/12/17 08:00 53 L 18 10/12/17 07:00 98.8 F 53 L 18 111/58 97 10/12/17 00:00 16 10/11/17 23:00 99.5 F 61 16 117/61 97 10/11/17 19:34 97.6 F 66 16 155/72 99 10/11/17 17:55 60 17 174/80 100 10/11/17 15:48 97.3 F L 66 18 164/74 100 Intake and Output 10/12/17 10/12/17 10/12/17 06:59 14:59 22:59 Intake Total 1000 875 Balance 1000 875 Intake: Intake, IV Titration 1000 875 Amount 0.9% NaCl with KCl 20 Meq 1000 875 /l 1,000 ml @ 125 mls/hr IV .Q8H ONE Rx#:[id number] Other: Voiding Method Toilet # Voids 1 - Constitutional General appearance: average body habitus, cooperative, no acute distress - EENT Eyes: no edentulous, EOMI, PERRLA, no photophobia, no ptosis Ears: bilateral: normal - Neck Neck: no lymphadenopathy, normal ROM Carotids: bilateral: upstroke normal - Respiratory Respiratory: bilateral: CTA, negative: diminished, rales, rhonchi - Cardiovascular Rhythm: regular Heart sounds: normal: S1, S2 Abnormal Heart Sounds: no systolic murmur, no diastolic murmur, no click ankle Peripheral Edema: absent: None dorsalis pedis Peripheral Pulses: bilateral: Normal - Gastrointestinal Scars present in the epigastric and the upper quadrant of the abdomen. Some nodularity felt in the epigastric area but nontender to palpate General gastrointestinal: no distended, normal bowel sounds, no organomegaly, soft - Integumentary Integumentary: no calor, no cyanotic - Neurologic Neurologic: CNII-XII intact - Musculoskeletal Musculoskeletal: generalized weakness, strength equal bilaterally - Psychiatric Psychiatric: A&O x's 3, appropriate affect Results CBC & Chem 7: 10/11/17 16:37 10/11/17 16:37 Labs: Abnormal Lab Results - Last 24 Hours (Table) 10/11/17 10/11/17 Range/Units 16:37 16:37 RBC 3.56 L (3.80-5.40) m/uL Neutrophils # 8.1 H (1.3-7.7) k/uL Lymphocytes # 0.6 L (1.0-4.8) k/uL BUN 18 H (7-17) mg/dL Glucose 159 H (74-99) mg/dL Thrombosis Risk Factor Assmnt - DVT/VTE Prophylaxis DVT/VTE Prophylaxis: Pharmacologic Prophylaxis ordered - Choose All That Apply Any of the Below Risk Factors Present?: Yes Each Factor Represents 1 point: Age 41-60 years Other Risk Factors: Yes Each Risk Factor Represents 2 Points: Malignancy Other congenital or acquired thrombophilia - If yes, enter type in comment: No Thrombosis Risk Factor Assessment Total Risk Factor Score: 3 Thrombosis Risk Factor Assessment Level: Moderate Risk Assessment and Plan Plan: #1 intractable nausea/vomiting likely secondary to ileus - keep patient nothing by mouth. Trial of clear liquid diet not tolerated. Dr. Tucker consulted. Unlikely to be obstruction secondary to metastatic of cancer. Likely secondary to increased narcotic use. Repeat abdominal x-ray tomorrow. Follow up with Dr. Dorantes as outpatient. Continue Reglan for motility #2 history of metastatic lung cancer, stable. History of Whipple procedure which was unsuccessful as per patient. No shortness of breath or abdominal pain on examination. On top table every 14 days as outpatient #3 COPD continue Symbicort. #4 depression continue citalopram 20 mg daily #5 GI prophylaxis with home dose of Prilosec 20 mg twice a day #6 anxiety continue Valium 5 mg 3 times a day as needed #7 DVT prior prophylaxis Lovenox Disposition patient could not tolerate oral diet, needs management of years may need 1-2 inpatient nights.
[2017-10-12] MEDS: DIAZEPAM 5 MG TAB PO SCH ×2 (16:55→21:40)
[2017-10-12] MEDS ORDERED: METOCLOPRAMIDE 5 MG/ML 2 ML VIAL IVP SCH (18:00)
[2017-10-12] MEDS: SYMBICORT 80-4.5 MCG INHALER INHALATION SCH (20:34)
[2017-10-12] MEDS: FLUTICASONE 50MCG/SPRAY NASAL 16GM EA NOSTRIL SCH (20:34)
[2017-10-13] MEDS: METOCLOPRAMIDE 5 MG/ML 2 ML VIAL IVP PRN ×4 (01:34→20:52)
[2017-10-13] MEDS: 0.9% NACL WITH KCL 20 MEQ/L 1,000 ML IV SCH ×2 (06:53→08:41)
[2017-10-13] MEDS: IPRATROPIUM-ALBUTEROL 3 ML NEB INHALATION SCH ×4 (07:53→20:08)
--- NOTE | 2017-10-13 08:13 | XR ---
EXAMINATION TYPE: XR abdomen 1V DATE OF EXAM: 10/13/2017 7:53 AM CLINICAL HISTORY: Ileitis per order. History of tumor undergoing treatment with abdominal pain per p atient. TECHNIQUE: Two Upright KUB images of the abdomen are obtained. COMPARISON: CT abdomen and pelvis September 17, 2017. Abdominal x-ray October 11, 2017 FINDINGS: Gas is seen in nondistended stomach. Gas is seen in nondistended bowel along the periphery including rectum. There is interval improvement in gas prominent small bowel loops. There is some [place] of small bowel gas on current study. Visualized small bowel loops lower abdomen and pelvis show marked improvement from recent x-ray. Cholecystectomy clips are again seen. There are additional scattered clips throughout the upper abdom en. There is postsurgical change lower lumbar spine redemonstrated. There is suspected tiny right ple ural effusion and right basilar atelectasis. No pneumoperitoneum is identified. IMPRESSION: Overall nonspecific but likely nonobstructive bowel gas pattern. Interval improvement fro m recent x-ray in degree of gaseous dilated and prominent bowel loops.
[2017-10-13] MEDS: DIAZEPAM 5 MG TAB PO SCH ×3 (08:33→20:52)
[2017-10-13] MEDS: PANTOPRAZOLE 40 MG/10 ML VIAL IV SCH (08:40)
[2017-10-13] MEDS: CITALOPRAM HYDROBROMIDE 20 MG TAB PO SCH (08:41)
[2017-10-13] MEDS: ENOXAPARIN 40 MG/0.4 ML SYRINGE SQ SCH (08:41)
[2017-10-13] MEDS: FLUTICASONE 50MCG/SPRAY NASAL 16GM EA NOSTRIL SCH ×2 (08:41→20:53)
--- NOTE | 2017-10-13 13:44 | P.DS ---
Providers Date of admission: 10/11/17 18:17 Expected date of discharge: 10/14/17 Attending physician: Ami Pvaon MD Consults: 10/12/17 13:47 Consult Physician Routine Consulting Provider: Anthony Browning Consult Reason/Comments: ileus Do you want consulting provider notified?: Yes Primary care physician: Ron [place] Hospital Course: 56 years old female patient of Dr. Lee and Dr. 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 Last bowel movement 6 PM yesterday. She states she has 3 bowel movements yesterday. Labs done in the ER was unremarkable except for glucose of 159. Abdominal x-ray suggested some finding of EDS. Patient was kept nothing by mouth after midnight. On evaluation this morning patient denied any nausea, vomiting, abdominal pain, change in bowel habits. She denies any bowel movement since morning. Denies any fever or chills. Patient admits that she takes pain medication and gets constipated intermittently. She was not using any bowel regimen as she was having regular bowel movements on previous use of medication for constipation and she ended abruptly stopped it as she thought she would not needed. Patient was started on clear liquid diet this morning which patient could not tolerate due to increased nausea. Dr. Browning to see the patient for ileus. 10/13 patient able to tolerate full liquid diet. Abdominal x-ray negative for any ileus or colitis. Patient will follow Dr. Nicole as outpatient for metastatic lung cancer 10/14 Patient able to tolerate liquid diet. CT abdomen showed periportal edema which is likely secondary to chemotherapy. There is some bile duct dialation that appears to have worsened from previous images. Case discussed with Dr. Browning who doesnot feel there is progression of tumour. Patient will follow with Dr. Nicole for further recommendation #1 intractable nausea/vomiting likely secondary to ileus secondary to increased narcotic use. #2 history of metastatic lung cancer, stable with history of Whipple procedure #3 COPD #4 depression #5 anxiety Disposition discharge home with self-care CC a copy of discharge to Dr. Lee Patient Condition at Discharge: Stable Plan - Discharge Summary New Discharge Prescriptions: Continue Ipratropium [place] [Atrovent Hfa] 2 puff INHALATION RT-QID Fluticasone Nasal [place] [Flonase Nasal [place]] 1 spray EA NOSTRIL BID Multivitamins, Thera [Multivitamin (formulary)] 1 tab PO DAILY Fluticasone/Salmeterol [Advair 250-50 Diskus] 1 puff INHALATION RT-HS Citalopram Hydrobromide [CeleXA] 20 mg PO DAILY Acetaminophen [Tylenol Extra Strength] 500 mg PO DAILY PRN PRN Reason: Pain Diazepam [Valium] 5 mg PO TID oxyCODONE HCL [Roxicodone] 5 mg PO Q4HR Metoclopramide Oral Soln [Reglan Oral Soln] 10 mg PO Q6H Opdivo (Unknown Dose) 1 dose IV Q14D Pd-1 1 dose IV Q14D Changed Omeprazole [PriLOSEC] 20 mg PO AC-BRKFST #0 Discharge Medication List Acetaminophen [Tylenol Extra Strength] 500 mg PO DAILY PRN 02/27/17 [History] Citalopram Hydrobromide [CeleXA] 20 mg PO DAILY 02/27/17 [History] Diazepam [Valium] 5 mg PO TID 02/27/17 [History] Fluticasone Nasal [place] [Flonase Nasal [place]] 1 spray EA NOSTRIL BID 02/27/17 [ History] Fluticasone/Salmeterol [Advair 250-50 Diskus] 1 puff INHALATION RT-HS 02/27/17 [ History] Ipratropium [place] [Atrovent Hfa] 2 puff INHALATION RT-QID 02/27/17 [History] Metoclopramide Oral Soln [Reglan Oral Soln] 10 mg PO Q6H 02/27/17 [History] Multivitamins, Thera [Multivitamin (formulary)] 1 tab PO DAILY 02/27/17 [History ] oxyCODONE HCL [Roxicodone] 5 mg PO Q4HR 02/27/17 [History] Opdivo (Unknown Dose) 1 dose IV Q14D 10/11/17 [History] Pd-1 1 dose IV Q14D 10/11/17 [History] Omeprazole [PriLOSEC] 20 mg PO AC-BRKFST #0 10/13/17 [Rx] Follow up Appointment(s)/Referral(s): Anthony Browning MD [Medical Doctor] - 10/21/17 2:30 pm Ron Lee MD [Primary Care Provider] - 10/20/17 2:00 pm Abdifatah Nicole MD [STAFF PHYSICIAN] - 10/15/17 4:00 pm () Patient Instructions/Handouts: Acute Abdominal Pain (DC), Ileus (DC) Activity/Diet/Wound Care/Special Instructions: Soft diet Activity as tolerated Discharge Disposition: HOME SELF-CARE
[2017-10-13] MEDS ORDERED: IOPAMIDOL-300 CONTRAST 30 ML VIAL (ORAL USE) PO PRN (14:23)
[2017-10-13] MEDS ORDERED: RX INFO: IV CONTRAST WAS GIVEN 1 EACH MISC MISCELLANE PRN (14:23)
--- NOTE | 2017-10-13 15:37 | P.PN ---
Subjective Progress Note Date: 10/13/17 56 years old female patient of Dr. Lee and Dr. 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 Last bowel movement 6 PM yesterday. She states she has 3 bowel movements yesterday. Labs done in the ER was unremarkable except for glucose of 159. Abdominal x-ray suggested some finding of EDS. Patient was kept nothing by mouth after midnight. On evaluation this morning patient denied any nausea, vomiting, abdominal pain, change in bowel habits. She denies any bowel movement since morning. Denies any fever or chills. Patient admits that she takes pain medication and gets constipated intermittently. She was not using any bowel regimen as she was having regular bowel movements on previous use of medication for constipation and she ended abruptly stopped it as she thought she would not needed. Patient was started on clear liquid diet this morning which patient could not tolerate due to increased nausea. Dr. Browning to see the patient for ileus 10/13: Patient able to tolerate full liquid diet today. She'll complaining of epigastric tenderness at the site of her malignancy. Abdominal x-ray negative for any ileus with nonspecific bowel gas pattern. Dr. Browning to see the patient today. If patient is able to tolerate diet will advance to regular diet. Objective - Vital Signs Vital signs: Vital Signs Temp 98.9 F 10/13/17 07:00 Pulse 62 10/13/17 08:02 Resp 18 10/13/17 07:00 BP 124/70 10/13/17 07:00 Pulse Ox 96 10/13/17 07:00 Intake & Output 10/12/17 10/13/17 10/13/17 18:59 06:59 18:59 Intake Total 875 2130 Balance 875 2130 Intake: Intake, IV Titration 875 1300 Amount 0.9% NaCl with KCl 20 Meq 875 /l 1,000 ml @ 125 mls/hr IV .Q8H ONE Rx#:[id number] 0.9% NaCl with KCl 20 Meq 1200 /l 1,000 ml @ 125 mls/hr IV .Q8H [facility] Rx#:[id number] ACETAMINOPHEN IV (For NPO 100 ) 1,000 mg In Saline 1 100ml.bag @ 400 mls/hr IVPB Q6HR [facility] Rx#: [id number] Oral 830 Other: Voiding Method Toilet Toilet Toilet # Voids 1 - Exam - Constitutional General appearance: average body habitus, cooperative, no acute distress - EENT Eyes: no edentulous, EOMI, PERRLA, no photophobia, no ptosis Ears: bilateral: normal - Neck Neck: no lymphadenopathy, normal ROM Carotids: bilateral: upstroke normal - Respiratory Respiratory: bilateral: CTA, negative: diminished, rales, rhonchi - Cardiovascular Rhythm: regular Heart sounds: normal: S1, S2 Abnormal Heart Sounds: no systolic murmur, no diastolic murmur, no click ankle Peripheral Edema: absent: None dorsalis pedis Peripheral Pulses: bilateral: Normal - Gastrointestinal Scars present in the epigastric and the upper quadrant of the abdomen. Some nodularity felt in the epigastric area , tender to palpate General gastrointestinal: no distended, normal bowel sounds, no organomegaly, soft - Integumentary Integumentary: no calor, no cyanotic - Neurologic Neurologic: CNII-XII intact - Musculoskeletal Musculoskeletal: generalized weakness, strength equal bilaterally - Psychiatric Psychiatric: A&O x's 3, appropriate affect - Labs CBC & Chem 7: 10/11/17 16:37 10/11/17 16:37 Assessment and Plan Plan: #1 intractable nausea/vomiting likely secondary to ileus - diet advanced to full liquids today patient tolerated well. Dr. Tucker consulted. Unlikely to be obstruction secondary to metastatic of cancer. Likely secondary to increased narcotic use. Repeat abdominal x-ray today with nonspecific small bowel gas pattern Continue Reglan for motility. #2 history of metastatic lung cancer, stable. History of Whipple procedure which was unsuccessful as per patient. No shortness of breath or abdominal pain on examination. On top table every 14 days as outpatient #3 COPD continue Symbicort. #4 depression continue citalopram 20 mg daily #5 GI prophylaxis with home dose of Prilosec 20 mg twice a day #6 anxiety continue Valium 5 mg 3 times a day as needed #7 DVT prior prophylaxis Lovenox #8 epigastric tenderness likely secondary to gastritis. Patient is taking Prilosec at home with meals. Will switch to once daily before breakfast
--- NOTE | 2017-10-13 15:59 | P.GSCN ---
<Pily Mustafa - Last Filed: 10/13/17 15:48> History of Present Illness Consult date: 10/13/17 Reason for Consult: Abdominal x-ray possible ileus History of present illness: 56-year-old female being seen the evaluated at the request of the attending for a surgical eval after a abdominal x-ray of the abdomen showed nondistended bowel along the peripheral including the rectum for possible ileus. Patient states that she's been having bilateral abdominal pain over the last several days and the last bowel movement was 48 hours ago. Patient does have a past medical history metastatic lung cancer to the stomach and pancreas. Status post Whipple procedure done one year prior. According to the patient wasn't successful. Patient states that she has been having intermittent episodes of being constipated felt that it was due to the pain medication she takes for chronic pain. Patient states is a nausea sensation but has not had any emesis and a decrease appetite. Patient did have a CAT scan of the abdomen and pelvis with contrast done on September 17 reviewing the report it did show loop of bowel within the abdomen pelvis a normal nonsuspicious findings it appeared stable compared to a prior imaging study Review of Systems Essentially unremarkable except as mentioned in the present illness Past Medical History Past Medical History: Cancer Additional Past Medical History / Comment(s): CANCER LUNG METASTATIC TO STOMACH AND BLOOD VESSELS close to THE PANCREAS History of Any Multi-Drug Resistant Organisms: None Reported Additional Past Surgical History / Comment(s): FEEDING TUBE- G-TUBE, PORT A CATH, WHIPPLE SX- UNSUSCESSFUL Past Psychological History: No Psychological Hx Reported Smoking Status: Former smoker Past Alcohol Use History: None Reported Past Drug Use History: None Reported - Past Family History Mother Family Medical History: No Reported History Additional Family Medical History / Comment(s): 3 uncles of cancer but does not know what kind. No history of cancer in mother or father. Patient is has 2 kids with no significant medical problems Medications and Allergies Home Medications Medication Instructions Recorded Confirmed Type Acetaminophen [Tylenol Extra 500 mg PO DAILY PRN 02/27/17 10/11/17 History Strength] Citalopram Hydrobromide [CeleXA] 20 mg PO DAILY 02/27/17 10/11/17 History Diazepam [Valium] 5 mg PO TID 02/27/17 10/11/17 History Fluticasone Nasal [place] [Flonase 1 spray EA NOSTRIL BID 02/27/17 10/11/17 History Nasal [place]] Fluticasone/Salmeterol [Advair 1 puff INHALATION RT-HS 02/27/17 10/11/17 History 250-50 Diskus] Ipratropium [place] [Atrovent Hfa] 2 puff INHALATION RT-QID 02/27/17 10/11/17 History Metoclopramide Oral Soln [Reglan 10 mg PO Q6H 02/27/17 10/11/17 History Oral Soln] Multivitamins, Thera [Multivitamin 1 tab PO DAILY 02/27/17 10/11/17 History (formulary)] oxyCODONE HCL [Roxicodone] 5 mg PO Q4HR 02/27/17 10/11/17 History Opdivo (Unknown Dose) 1 dose IV Q14D 10/11/17 10/11/17 History Pd-1 1 dose IV Q14D 10/11/17 10/11/17 History Omeprazole [PriLOSEC] 20 mg PO AC-BRKFST #0 10/13/17 10/11/17 Rx Allergies Allergy/AdvReac Type Severity Reaction Status Date / Time cinnamon Allergy Anaphylaxis Verified 10/11/17 16:21 iron Allergy Rash/Hives Verified 10/11/17 16:21 levofloxacin [From Levaquin] Allergy Unknown Verified 10/11/17 16:21 morphine Allergy Rash/Hives Verified 10/11/17 16:21 Sulfa (Sulfonamide Allergy Rash/Hives Verified 10/11/17 16:21 Antibiotics) Surgical - Exam Vital Signs Temp Pulse Resp BP Pulse Ox 97.3 F L 66 18 164/74 100 10/11/17 15:48 10/11/17 15:48 10/11/17 15:48 10/11/17 15:48 10/11/17 15:48 GENERAL APPEARANCE: thin frail looking older than stated age sitting up in bed talkative alert, oriented, in no acute distress. VITAL SIGNS: Reviewed HEENT: Head is normocephalic and atraumatic. Pupils are equal and reactive. The nares are patent. Oropharynx is clear without lesions. NECK: Supple without lymphadenopathy. Traches midline. HEART: S1, S2. Regular rate and rhythm. Denies chest pain LUNGS: No crackles or wheezes are heard. Adequate air movement bilaterally ABDOMEN: Soft, reports mild tenderness to the bilateral lower quadrant , nondistended with good bowel sounds. No peritoneal signs. No palpable organomegaly or masses. Reports a nausea sensation no emesis states last bowel movement 48 hours ago EXTREMITIES: Normal skin color and turgor. No cyanosis, rash, ulceration, clubbing or edema. Radial pedal pulses are 2/4 bilaterally. NEUROLOGICAL: No focal deficits. Strength and sensation are grossly intact. Results - Labs 10/11/17 16:37 10/11/17 16:37 Assessment and Plan Assessment: Impression Present on admission intractable nausea vomiting likely due to an ileus History of metastatic lung cancer with a prior Whipple procedure COPD no evidence of an exacerbation Anxiety disorder nonspecified Depressive disorder nonspecified Plan Follow up on the pending CT abdomen further recommendations after reviewed by Dr. Turner . Patient is able to tolerate a diet will advance to a regular diet No evidence of an acute surgical abdomen at this time We'll follow with you Continue medical management per the attending Surgical consultation note dictated for dr turner The above impression and plan of care have been discussed and directed by signing physician. Pily Mustafa nurse practitioner acting as scribe for signing physician. <Anthony Turner - Last Filed: 10/13/17 16:19> Surgical - Exam Vital Signs Temp Pulse Resp BP Pulse Ox 97.3 F L 66 18 164/74 100 10/11/17 15:48 10/11/17 15:48 10/11/17 15:48 10/11/17 15:48 10/11/17 15:48 Results - Labs 10/11/17 16:37 10/11/17 16:37 Assessment and Plan Assessment: As above. Patient known to our service. Known to have advanced malignancy in the upper abdomen. Last CT scan from 1 month ago reviewed. We'll repeat CT abdomen at this time. If symptoms persist and CAT scan nondiagnostic consider upper GI small bowel series versus upper endoscopy.
--- NOTE | 2017-10-13 18:20 | CT ---
EXAMINATION TYPE: CT abdomen w con DATE OF EXAM: 10/13/2017 COMPARISON: Prior CT abdomen 09/17/2017 HISTORY: Upper abdominal pain with vomiting CT DLP: 622 mGycm Automated exposure control for dose reduction was used. TECHNIQUE: Helical acquisition of images was performed from the lung bases through the top of iliac crest to include entire abdomen. CONTRAST: Performed with Oral Contrast and with IV Contrast, patient injected with 100 mL of Isovue 300. FINDINGS: LUNG BASES: Stable LIVER/GB: There is been some interval progression of periportal low-attenuation within the liver, gal lbladder is absent. Possible small cysts within the liver are subcentimeter and stable. Bile ducts ar e prominent and have progressively dilated in the interval. . PANCREAS: No significant abnormality is seen. SPLEEN: Unchanged ADRENALS: Stable KIDNEYS: No significant interval change is seen. BOWEL: No significant abnormality is seen. No bowel obstruction. LYMPH NODES: No significant abnormality is appreciated. OSSEOUS STRUCTURES: Postop changes are noted in the lower lumbar spine as on prior exam FREE AIR: No Free Air visible ASCITES: None visible. RETROPERITONEAL ADENOPATHY: No Retroperitoneal Adenopathy visible. IMPRESSION: PERIPORTAL EDEMA, PROGRESSION OF BILE DUCT DILATION, CORRELATE FOR POSSIBLE HEPATOCELLULAR DISEASE.
[2017-10-13] MEDS: SYMBICORT 80-4.5 MCG INHALER INHALATION SCH (20:08)
[2017-10-14] MEDS ORDERED: PANTOPRAZOLE 40 MG TABLET PO SCH (07:30)
[2017-10-14] MEDS: METOCLOPRAMIDE 5 MG/ML 2 ML VIAL IVP PRN (07:40)
[2017-10-14] MEDS: ENOXAPARIN 40 MG/0.4 ML SYRINGE SQ SCH (07:48)
[2017-10-14] MEDS: DIAZEPAM 5 MG TAB PO SCH (07:48)
[2017-10-14] MEDS: CITALOPRAM HYDROBROMIDE 20 MG TAB PO SCH (07:49)
[2017-10-14 08:33] VITALS: BP 172/79; PULSE 48; RESP 18; TEMP 97.9
[2017-10-14 08:52] LABS: Albumin 3.9 g/dL (3.5-5.0); Potassium 4.3 mmol/L (3.5-5.1); Total Bilirubin 0.5 mg/dL (0.2-1.3); Total Protein 6.3 g/dL (6.3-8.2)
[2017-10-14] MEDS: IPRATROPIUM-ALBUTEROL 3 ML NEB INHALATION SCH ×2 (09:17→11:59)
--- NOTE | 2017-10-14 11:59 | P.PN ---
Subjective Progress Note Date: 10/14/17 Principal diagnosis: Abdominal pain Patient says her pain is improved. She is tolerating her diet. No nausea or vomiting. CAT scan showed some edema in the right upper quadrant likely related to recent chemotherapy effects on the tumor. Objective - Vital Signs Vital signs: Vital Signs Temp 97.9 F 10/14/17 07:00 Pulse 48 L 10/14/17 07:00 Resp 18 10/14/17 07:00 BP 172/79 10/14/17 07:00 Pulse Ox 99 10/14/17 07:00 Intake & Output 10/13/17 10/14/17 10/14/17 18:59 06:59 18:59 Other: Voiding Method Toilet Toilet Toilet # Voids 2 1 - Exam Abdomen: Soft, nondistended, mild right upper quadrant tenderness - Labs CBC & Chem 7: 10/11/17 16:37 10/14/17 07:43 Assessment and Plan (1) Abdominal pain Narrative/Plan: Continue diet as tolerated. Stable for discharge from my standpoint. If symptoms persist would consider upper endoscopy. Current Visit: Yes Status: Acute Code(s): R10.9 - UNSPECIFIED ABDOMINAL PAIN SNOMED Code(s): 75959094
== END 2017-10-14 12:38 | disposition home or self-care (01) | DRG 389 ==
LOC: EC 15:41 → 5MS5E 18:17 → 5ONC 20:10
PROVIDERS: ADMIT Internal Medicine; ATTEND Internal Medicine
DX: K56.7 Ileus, unspecified (principal); C34.90 Malignant neoplasm of unspecified part of unspecified bronchus or lung; C78.89 Secondary malignant neoplasm of other digestive organs; F32.9 Major depressive disorder, single episode, unspecified; F41.9 Anxiety disorder, unspecified; G89.29 Other chronic pain; J44.9 Chronic obstructive pulmonary disease, unspecified; R60.9 Edema, unspecified; T45.1X5A Adverse effect of antineoplastic and immunosuppressive drugs, initial encounter; T40.605A Adverse effect of unspecified narcotics, initial encounter; L29.9 Pruritus, unspecified; Z79.899 Other long term (current) drug therapy; Z79.891 Long term (current) use of opiate analgesic; Z88.1 Allergy status to other antibiotic agents; Z88.5 Allergy status to narcotic agent; Z88.2 Allergy status to sulfonamides; Z88.8 Allergy status to other drugs, medicaments and biological substances; Z91.018 Allergy to other foods; Z90.411 Acquired partial absence of pancreas; Z87.891 Personal history of nicotine dependence
CPT/HCPCS: 36415; 71046; 74018; 74160; 80053; 82150; 82550; 82553; 83690; 83735; 84484; 85025; 94640; 96361; 96374; 96375; 99284

== ENCOUNTER → 2018-02-19 | Outpatient (CLI) | payer MEDICARE, BC ==
--- NOTE | 2018-02-19 15:11 | CT ---
EXAMINATION TYPE: CT abdomen pelvis wo con DATE OF EXAM: 02/19/2018 COMPARISON: 10/13/2017 INDICATION: Lung Cancer, Abdominal Pain DLP: 258.30 mGycm, Automated exposure control for dose reduction was used. CONTRAST: 0 mL of Isovue 300. Abnormal laboratory renal function tests. Study performed with Oral Contrast TECHNIQUE: Axial images were obtained from above the diaphragm to the pubic rami in the axial plane a t 5 mm thick sections. Reconstructed images are reviewed on the computer in the coronal plane. FINDINGS: Limited CT sections are obtained the lung bases. The lung bases are clear. Emphysematous bleb at th e right lung base is evident. CT ABDOMEN: Liver: There is a 0.7 cm hypodensity at the superior right dome of diaphragm may be a small hepatic c yst. This is too small to classify. This was present previously and appears stable. Portal hypodensit y is less well visualized on current exam. There are otherwise appears unremarkable. Spleen: Normal Pancreas: Normal Adrenal glands: The adrenal glands are normal. Gallbladder: Surgically absent. Kidneys: No masses are evident. No hydronephrosis is present. No cysts are present. No renal stone s are evident. Aorta: Vascular calcification is within the aorta. Inferior vena cava: Normal. CT PELVIS: Loops of bowel within the abdomen and pelvis are normal. There are loops of bowel lacking oral co ntrast limiting their evaluation. Appendix: Normal as visualized. Urinary bladder: Normal. Genitourinary structures: Vaginal cuff region appears normal. Correlate with patient's surgical histo ry. Adnexal regions are clear. Osseous structures: No suspicious lytic or sclerotic lesions. Pedicle screws are present within the l ower lumbar spine fixation. Facet degenerative changes are present IMPRESSIONS: 1. No suspicious changes to suggest metastatic disease from lung cancer
== END | disposition home or self-care (01) ==
LOC: RADPROMAIN 10:19
PROVIDERS: ATTEND Internal Medicine Hematology & Oncology
DX: R10.84 Generalized abdominal pain (principal); C34.11 Malignant neoplasm of upper lobe, right bronchus or lung
CPT/HCPCS: 82565; 84520; 74176; J1642

== ENCOUNTER → 2018-08-12 | Outpatient (CLI) | payer MEDICARE, BC ==
--- NOTE | 2018-08-12 19:01 | CT ---
EXAMINATION TYPE: CT abdomen pelvis w con DATE OF EXAM: 08/12/2018 COMPARISON: 02/12/1718 HISTORY: Hx Lung ca, mets in stomach. Pt c/o abdomen pain hx sx whipple CT DLP: 353.30 mGycm Automated exposure control for dose reduction was used. TECHNIQUE: Helical acquisition of images was performed from the lung bases through the pelvis. CONTRAST: Performed with Oral Contrast and with IV Contrast, patient injected with 80 mL of Isovue 300. FINDINGS: Lung bases are clear. There is no pleural effusion. There is no pericardial effusion. There is 1 cm c yst in the right lobe of the liver. The bile ducts are not dilated. There are clips from cholecystect wesley. Spleen appears normal. There is no evidence of a pancreatic mass. There is some thickening of th e right lateral wall of the gastric fundus.. There is no sign of pancreatic mass. There are surgical clips in the upper abdomen. There is no adrenal mass. Kidneys show satisfactory contrast opacification. There is no hydronephrosi s. There is no evidence of a bowel obstruction. There is retained fecal material in large bowel. Appe ndix appears normal. I see no retroperitoneal adenopathy. Ureters are not dilated. Bladder distends s moothly. There is no inguinal hernia. There is no free fluid in the pelvis. There is no sign of free air. There is no evidence of a bowel obstruction. There is a first-degree L3-4 spondylolisthesis. There is lumbar spine fusion surgery noted. There is no lumbar compression fracture. IMPRESSION: PREVIOUS SURGERY. THERE IS AT LEAST PARTIAL RESECTION OF THE PANCREAS. THERE IS SOME THICKENING OF TH E RIGHT LATERAL WALL OF THE GASTRIC FUNDUS THAT COULD RELATE TO A GASTRIC MASS. THIS APPEARS UNCHANGE D. Mild constipation. Stable hepatic cyst.
== END | disposition home or self-care (01) ==
LOC: RADCTMAIN 16:36
PROVIDERS: ATTEND Internal Medicine Hematology & Oncology
DX: C34.11 Malignant neoplasm of upper lobe, right bronchus or lung (principal); K31.89 Other diseases of stomach and duodenum; K59.00 Constipation, unspecified; K76.89 Other specified diseases of liver
CPT/HCPCS: 82565; 84520; 74177; 36415; Q9967

== ENCOUNTER 2018-10-12 23:55 | Inpatient (IN) | payer MEDICARE, BC ==
[2018-10-13] MEDS ORDERED: HYDROmorphone 0.5 MG/0.5 ML SYRINGE IVP STA (00:44)
[2018-10-13] MEDS ORDERED: SODIUM CHLORIDE 0.9% 1,000 ML IV STA (00:44)
[2018-10-13] MEDS ORDERED: ONDANSETRON 4 MG/2 ML VIAL IVP STA ×2 (00:44→02:39)
[2018-10-13] MEDS ORDERED: diphenhydrAMINE 50 MG/ML 1 ML VIAL IVP STA (00:44)
[2018-10-13 01:28] LABS: Basophils # (A) 0.1 k/uL (0-0.2); Basophils % (A) 1 %; Eosinophils # (A) 0.2 k/uL (0-0.7); Eosinophils % (A) 2 %; HCT 35.3 % (34.0-46.0); HGB 11.6 gm/dL (11.4-16.0); Lymphocytes # (A) 1.2 k/uL (1.0-4.8); Lymphocytes % (A) 13 %; MCH 32.8 pg (25.0-35.0); MCHC 32.9 g/dL (31.0-37.0); MCV 99.8 fL (80.0-100.0); Mean Platelet Volume 7.3; Monocytes # (A) 0.5 k/uL (0-1.0); Monocytes % (A) 5 %; Neutrophils # (A) 7.7 k/uL (1.3-7.7); Neutrophils % (A) 79 %; Platelet Count 266 k/uL (150-450); RBC 3.54 m/uL (3.80-5.40); RDW 13.1 % (11.5-15.5); WBC 9.7 k/uL (3.8-10.6)
[2018-10-13 01:38] LABS: Albumin 4.4 g/dL (3.5-5.0); Calcium 10.6 mg/dL (8.4-10.2); Potassium 3.9 mmol/L (3.5-5.1); Total Bilirubin 0.4 mg/dL (0.2-1.3)
[2018-10-13] MEDS ORDERED: FAMOTIDINE 20 MG/2 ML VIAL IV STA (02:39)
--- NOTE | 2018-10-13 02:50 | ED ---
General Adult HPI - General Source: patient, family Mode of arrival: wheelchair Limitations: no limitations <Haley Alcazar - Last Filed: 10/13/18 03:40> <Shell Roman - Last Filed: 10/13/18 21:52> - General Chief complaint: Recheck/Abnormal Lab/Rx Stated complaint: Adverse Drug Reaction Time Seen by Provider: 10/13/18 00:17 - History of Present Illness Initial comments: 57-year-old female patient presents to the emergency department today for evaluation of upper abdominal pain, shortness of breath, and vomiting. Patient states symptoms started approximately 30 minutes after taking a new medication, venlafaxine. Patient states his first time taking the medication this evening. Patient states she is having some mild chest pain while vomiting. Denies any radiation of the pain through to her back. Patient states she feels shaky when she is having a vomiting episode. She denies any fevers or chills with this. Denies any recent travel or sick contacts. Denies any hematuria, dysuria, urina ry frequency, urinary urgency. Patient denies any recent rash, diarrhea, constipation, back pain, numbness, tingling, dizziness, weakness, headache, visual changes, or any other complaints. (Haley Alcazar) - Related Data Home Medications Medication Instructions Recorded Confirmed Ipratropium [place] [Atrovent Hfa] 2 puff INHALATION RT-QID 02/27/17 10/13/18 Albuterol Nebulized [Ventolin 2.5 mg INHALATION RT-QID PRN 10/13/18 10/13/18 Nebulized] Fluticasone/Salmeterol [Advair 1 puff INHALATION RT-BID 10/13/18 10/13/18 250-50 Diskus] fentaNYL 25MCG/HR PATCH [Duragesic 1 patch TRANSDERM Q72H 10/13/18 10/13/18 25MCG/HR] Previous Rx's Medication Instructions Recorded Omeprazole [PriLOSEC] 20 mg PO AC-BRKFST #0 10/13/17 Allergies Allergy/AdvReac Type Severity Reaction Status Date / Time cinnamon Allergy Anaphylaxis Verified 10/13/18 00:02 iron Allergy Rash/Hives Verified 10/13/18 00:02 levofloxacin [From Levaquin] Allergy Unknown Verified 10/13/18 00:02 morphine Allergy Rash/Hives Verified 10/13/18 00:02 Sulfa (Sulfonamide Allergy Rash/Hives Verified 10/13/18 00:02 Antibiotics) venlafaxine Allergy Wheezing Verified 10/13/18 08:07 Review of Systems ROS Other: All systems not noted in ROS Statement are negative. <OttonielHaley M - Last Filed: 10/13/18 03:40> ROS Other: All systems not noted in ROS Statement are negative. <Shell Roman - Last Filed: 10/13/18 21:52> ROS Statement: Those systems with pertinent positive or pertinent negative responses have been documented in the HPI. Past Medical History Past Medical History: Cancer Additional Past Medical History / Comment(s): CANCER LUNG METASTATIC TO STOMACH AND BLOOD VESSELS close to THE PANCREAS History of Any Multi-Drug Resistant Organisms: None Reported Additional Past Surgical History / Comment(s): FEEDING TUBE- G-TUBE, PORT A CATH, WHIPPLE SX- UNSUSCESSFUL Past Psychological History: No Psychological Hx Reported Smoking Status: Former smoker Past Alcohol Use History: None Reported Past Drug Use History: None Reported - Past Family History Mother Family Medical History: No Reported History Additional Family Medical History / Comment(s): 3 uncles of cancer but does not know what kind. No history of cancer in mother or father. Patient is has 2 kids with no significant medical problems <BrinamarybethHaley Irina - Last Filed: 10/13/18 03:40> General Exam Limitations: no limitations General appearance: alert, in no apparent distress, other (This is a well- developed, well-nourished adult female patient in mild distress due to vomiting) Eye exam: Present: normal appearance, PERRL, EOMI. Absent: scleral icterus, conjunctival injection, periorbital swelling ENT exam: Present: normal exam, normal oropharynx, mucous membranes moist Neck exam: Present: normal inspection. Absent: tenderness, meningismus, lymphadenopathy Respiratory exam: Present: normal lung sounds bilaterally. Absent: respiratory distress, wheezes, rales, rhonchi, stridor Cardiovascular Exam: Present: regular rate, normal rhythm, normal heart sounds. Absent: systolic murmur, diastolic murmur, rubs, gallop, clicks GI/Abdominal exam: Present: soft, tenderness (Left upper quadrant tenderness), normal bowel sounds. Absent: distended, guarding, rebound, rigid Neurological exam: Present: alert, oriented X3, CN II-XII intact Psychiatric exam: Present: normal affect, normal mood Skin exam: Present: warm, dry, intact, normal color. Absent: rash <Haley Alcazar Irina - Last Filed: 10/13/18 03:40> Course Vital Signs 10/12/18 10/13/18 23:59 04:02 Temperature 97.7 F Pulse Rate 73 63 Respiratory 24 16 Rate Blood Pressure 159/79 134/80 O2 Sat by Pulse 100 98 Oximetry EKG Findings - EKG Comments: EKG Findings:: EKG obtained at 0106 shows sinus rhythm with marked sinus arrhythmia and first-degree AV block. Ventricular rate is 64, MO interval 220, QRS duration is 88, QT 442, QTc 455. No evidence of ST elevation or depression. <Haley Alcazar M - Last Filed: 10/13/18 03:40> Medical Decision Making - Lab Data Result diagrams: 10/13/18 01:14 10/13/18 01:14 - Radiology Data Radiology results: report reviewed <Haley Alcazar - Last Filed: 10/13/18 03:40> - Lab Data Result diagrams: 10/13/18 01:14 10/13/18 01:14 <Shell Roman - Last Filed: 10/13/18 21:52> - Medical Decision Making 57-year-old female patient presents to the emergency department today for evaluation of vomiting, left upper quadrant abdominal pain, and shortness of breath. Patient states symptoms started approximately 30 minutes after taking her first dose of venlafaxine. Physical examination did reveal some left upper quadrant tenderness. Lungs are clear to auscultation with good air movement. EKG showed sinus rhythm with a sinus arrhythmia and first-degree AV block, no ST changes. Labs reviewed, did reveal CO2 of 19, anion gap of 10, blood sugar of 200, normal troponin. She did have mild elevation in BUN and creatinine which seems to be chronic for her. Patient does not have a history of diabetes. Patient did receive multiple doses of nausea medication in the emergency department. Upon reevaluation patient states she has still been vomiting and just does not feel well. She does not feel comfortable being discharged home at this time. We will admit to observation for intractable vomiting. (Haley Alcazar) Patient care was discussed with the PA who evaluated the patient is a patient with metastatic lung cancer as well as a history of pancreatic cancer status post Whipple presenting with intractable nausea and vomiting and evidence of dehydration. Given the patient's multiple medical comorbidities and persistent intractable nausea and vomiting I do feel she warrants admission to the hospital. Patient care was discussed with admitting physician Dr. Callahan per the patient's primary care physician 's admission preference. Dr. Callahan accepts The admission. (Shell Roman) - Lab Data Lab Results 10/13/18 10/13/18 10/13/18 Range/Units 01:14 01:14 01:14 WBC 9.7 (3.8-10.6) k/uL RBC 3.54 L (3.80-5.40) m/uL Hgb 11.6 (11.4-16.0) gm/dL Hct 35.3 (34.0-46.0) % MCV 99.8 (80.0-100.0) fL MCH 32.8 (25.0-35.0) pg MCHC 32.9 (31.0-37.0) g/dL RDW 13.1 (11.5-15.5) % Plt Count 266 (150-450) k/uL Neutrophils % 79 % Lymphocytes % 13 % Monocytes % 5 % Eosinophils % 2 % Basophils % 1 % Neutrophils # 7.7 (1.3-7.7) k/uL Lymphocytes # 1.2 (1.0-4.8) k/uL Monocytes # 0.5 (0-1.0) k/uL Eosinophils # 0.2 (0-0.7) k/uL Basophils # 0.1 (0-0.2) k/uL Sodium 138 (137-145) mmol/L Potassium 3.9 (3.5-5.1) mmol/L Chloride 109 H (98-107) mmol/L Carbon Dioxide 19 L (22-30) mmol/L Anion Gap 10 mmol/L BUN 27 H (7-17) mg/dL Creatinine 1.07 H (0.52-1.04) mg/dL Est GFR (CKD-EPI)AfAm 67 (>60 ml/min/1.73 sqM) Est GFR (CKD-EPI)NonAf 58 (>60 ml/min/1.73 sqM) Glucose 208 H (74-99) mg/dL POC Glucose (mg/dL) (75-99) mg/dL POC Glu Field Sales Representative ID Plasma Lactic Acid Isaiah 2.0 (0.7-2.0) mmol/L Calcium 10.6 H (8.4-10.2) mg/dL Total Bilirubin 0.4 (0.2-1.3) mg/dL AST 27 (14-36) U/L ALT 27 (9-52) U/L Alkaline Phosphatase 75 (38-126) U/L Troponin I (0.000-0.034) ng/mL Total Protein 7.0 (6.3-8.2) g/dL Albumin 4.4 (3.5-5.0) g/dL Amylase 69 (30-110) U/L Lipase 53 (23-300) U/L Urine Color Urine Appearance (Clear) Urine pH (5.0-8.0) Ur Specific [place] (1.001-1.035) Urine Protein (Negative) Urine Glucose (UA) (Negative) Urine Ketones (Negative) Urine Blood (Negative) Urine Nitrite (Negative) Urine Bilirubin (Negative) Urine Urobilinogen (<2.0) mg/dL Ur Leukocyte Esterase (Negative) Urine RBC (0-5) /hpf Urine WBC (0-5) /hpf Ur Squamous Epith Cells (0-4) /hpf Acetone, Qual (Negative) 10/13/18 10/13/18 10/13/18 Range/Units 01:14 03:34 07:40 WBC (3.8-10.6) k/uL RBC (3.80-5.40) m/uL Hgb (11.4-16.0) gm/dL Hct (34.0-46.0) % MCV (80.0-100.0) fL MCH (25.0-35.0) pg MCHC (31.0-37.0) g/dL RDW (11.5-15.5) % Plt Count (150-450) k/uL Neutrophils % % Lymphocytes % % Monocytes % % Eosinophils % % Basophils % % Neutrophils # (1.3-7.7) k/uL Lymphocytes # (1.0-4.8) k/uL Monocytes # (0-1.0) k/uL Eosinophils # (0-0.7) k/uL Basophils # (0-0.2) k/uL Sodium (137-145) mmol/L Potassium (3.5-5.1) mmol/L Chloride (98-107) mmol/L Carbon Dioxide (22-30) mmol/L Anion Gap mmol/L BUN (7-17) mg/dL Creatinine (0.52-1.04) mg/dL Est GFR (CKD-EPI)AfAm (>60 ml/min/1.73 sqM) Est GFR (CKD-EPI)NonAf (>60 ml/min/1.73 sqM) Glucose (74-99) mg/dL POC Glucose (mg/dL) 155 H (75-99) mg/dL POC Glu Field Sales Representative ID Aparna Eckert Plasma Lactic Acid Isaiah (0.7-2.0) mmol/L Calcium (8.4-10.2) mg/dL Total Bilirubin (0.2-1.3) mg/dL AST (14-36) U/L ALT (9-52) U/L Alkaline Phosphatase (38-126) U/L Troponin I <0.012 (0.000-0.034) ng/mL Total Protein (6.3-8.2) g/dL Albumin (3.5-5.0) g/dL Amylase (30-110) U/L Lipase (23-300) U/L Urine Color Urine Appearance (Clear) Urine pH (5.0-8.0) Ur Specific [place] (1.001-1.035) Urine Protein (Negative) Urine Glucose (UA) (Negative) Urine Ketones (Negative) Urine Blood (Negative) Urine Nitrite (Negative) Urine Bilirubin (Negative) Urine Urobilinogen (<2.0) mg/dL Ur Leukocyte Esterase (Negative) Urine RBC (0-5) /hpf Urine WBC (0-5) /hpf Ur Squamous Epith Cells (0-4) /hpf Acetone, Qual Negative (Negative) 10/13/18 10/13/18 Range/Units 08:30 11:26 WBC (3.8-10.6) k/uL RBC (3.80-5.40) m/uL Hgb (11.4-16.0) gm/dL Hct (34.0-46.0) % MCV (80.0-100.0) fL MCH (25.0-35.0) pg MCHC (31.0-37.0) g/dL RDW (11.5-15.5) % Plt Count (150-450) k/uL Neutrophils % % Lymphocytes % % Monocytes % % Eosinophils % % Basophils % % Neutrophils # (1.3-7.7) k/uL Lymphocytes # (1.0-4.8) k/uL Monocytes # (0-1.0) k/uL Eosinophils # (0-0.7) k/uL Basophils # (0-0.2) k/uL Sodium (137-145) mmol/L Potassium (3.5-5.1) mmol/L Chloride (98-107) mmol/L Carbon Dioxide (22-30) mmol/L Anion Gap mmol/L BUN (7-17) mg/dL Creatinine (0.52-1.04) mg/dL Est GFR (CKD-EPI)AfAm (>60 ml/min/1.73 sqM) Est GFR (CKD-EPI)NonAf (>60 ml/min/1.73 sqM) Glucose (74-99) mg/dL POC Glucose (mg/dL) 151 H (75-99) mg/dL POC Glu Field Sales Representative ID Aparna Eckert Plasma Lactic Acid Isaiah (0.7-2.0) mmol/L Calcium (8.4-10.2) mg/dL Total Bilirubin (0.2-1.3) mg/dL AST (14-36) U/L ALT (9-52) U/L Alkaline Phosphatase (38-126) U/L Troponin I (0.000-0.034) ng/mL Total Protein (6.3-8.2) g/dL Albumin (3.5-5.0) g/dL Amylase (30-110) U/L Lipase (23-300) U/L Urine Color Light Yellow Urine Appearance Clear (Clear) Urine pH 7.0 (5.0-8.0) Ur Specific [place] 1.010 (1.001-1.035) Urine Protein Negative (Negative) Urine Glucose (UA) Negative (Negative) Urine Ketones Negative (Negative) Urine Blood Trace H (Negative) Urine Nitrite Negative (Negative) Urine Bilirubin Negative (Negative) Urine Urobilinogen <2.0 (<2.0) mg/dL Ur Leukocyte Esterase Negative (Negative) Urine RBC 6 H (0-5) /hpf Urine WBC 1 (0-5) /hpf Ur Squamous Epith Cells 1 (0-4) /hpf Acetone, Qual (Negative) - Radiology Data Two-view x-ray of the abdomen was obtained. Report was reviewed in its entirety. Impression by Dr. Loyd shows no acute findings. (Haley Alcazar) Disposition Decision to Admit Reason: Admit from EC Decision Date: 10/13/18 Decision Time: 03:43 <Haley Alcazar - Last Filed: 10/13/18 03:40> <Shell Roman - Last Filed: 10/13/18 21:52> Clinical Impression: Intractable vomiting, Hyperglycemia Disposition: ADMITTED IP TO THIS [facility] Condition: Serious
[2018-10-13] MEDS ORDERED: NALOXONE 0.4 MG/ML 1 ML VIAL IV PRN (03:43)
[2018-10-13] MEDS: SODIUM CHLORIDE 0.9% 1,000 ML IV SCH ×3 (04:31→17:58)
[2018-10-13 07:41] LABS: Glucose,Whole Blood 155 mg/dL (75-99)
[2018-10-13 09:06] LABS: Appearance,Urine Clear (Clear); Bilirubin,Urine Negative (Negative); Blood,Urine Trace (Negative); Color,Urine Light Yellow; Glucose,Urine (UA) Negative (Negative); Ketones,Urine Negative (Negative); Leukocyte Esterase,Urine Negative (Negative); Nitrite,Urine Negative (Negative); Protein,Urine Negative (Negative); RBC,Urine 6 /hpf (0-5); Squamous Epithelial Cell,Urine 1 /hpf (0-4); Urobilinogen,Urine <2.0 mg/dL (<2.0); WBC,Urine 1 /hpf (0-5)
[2018-10-13] MEDS: SYMBICORT 80-4.5 MCG INHALER INHALATION SCH ×2 (09:45→20:15)
[2018-10-13] MEDS: PANTOPRAZOLE 40 MG TABLET PO SCH (09:56)
[2018-10-13 11:27] LABS: Glucose,Whole Blood 151 mg/dL (75-99)
[2018-10-13] MEDS: ONDANSETRON 4 MG/2 ML VIAL IVP PRN ×2 (11:35→20:56)
--- NOTE | 2018-10-13 11:52 | XR ---
EXAM: XR Abdomen, 2 Views CLINICAL HISTORY: adverse reaction to med, vomiting TECHNIQUE: Frontal view of the abdomen/pelvis with upright view of the abdomen. COMPARISON: No relevant prior studies available. FINDINGS: Intraperitoneal space: No free air. Gastrointestinal tract: Nonobstructed bowel gas pattern. Moderate amount of stool within the colon. Bones/joints: Postsurgical changes noted within the lower lumbar spine. Soft tissues: Evidence of surgical clips within the right and left upper quadrants. IMPRESSION: No acute findings.
[2018-10-13] MEDS: IPRATROPIUM 0.5 MG/2.5 ML NEBU INHALATION SCH ×3 (12:23→20:15)
[2018-10-13] MEDS: IOPAMIDOL-300 CONTRAST 30 ML VIAL (ORAL USE) PO PRN ×2 (12:25→13:25)
--- NOTE | 2018-10-13 12:27 | P.HPIM ---
History of Present Illness H&P Date: 10/13/18 This is a 57-year-old female patient of Dr. Lee and Dr. 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 Attempted Whipple procedure was done in 2017 but was unsuccessful. History of pyloric stenosis status post Botox injection 15 years ago. The patient is currently under care of Dr. Nicole for chemotherapy and her last treatment was done on Thursday. She receives once monthly. Patient states she always has nausea with a little bit of vomiting and abdominal pain. Yesterday, she became short of breath and her hands and legs were numb and her head was buzzing. She denies having any sick contacts, no fever or chills. She came into [facility] emergency center for evaluation. KUB of the abdomen showed no acute findings. She has been afebrile, heart rate in the 60s and 70s, blood pressure this morning 164/74, pulse ox 99% on room air. Patient has normal white count and hemoglobin and platelet count. Chloride 109 and CO2 19, BUN 27 and creatinine 1.07. Initial blood sugar 208. Lactic acid 2. As observation status for intractable vomiting and hyperglycemia. Calcium 10.6, troponin negative. Urinalysis was nitrate and leukoesterase negative, acetone negative. We will add consult for oncology and CAT scan of the abdomen and pelvis will be ordered. Review of Systems All systems: negative Constitutional: Reports anorexia, Reports poor appetite, Reports weakness, Denies chills, Denies fatigue, Denies fever Eyes: denies blurred vision, denies pain Ears, nose, mouth and throat: Denies dysphagia, Denies headache, Denies sore throat, Denies vertigo Cardiovascular: Reports dyspnea on exertion, Reports shortness of breath, Denies chest pain, Denies edema, Denies leg edema, Denies lightheadedness, Denies syncope Respiratory: Reports dyspnea, Denies cough, Denies cough with sputum, Denies excessive sputum, Denies hemoptysis, Denies home oxygen, Denies wheezing Gastrointestinal: Reports abdominal pain, Reports loss of appetite, Reports nausea, Reports vomiting, Denies diarrhea Genitourinary: Denies dysuria, Denies hematuria, Denies urgency, Denies urinary frequency Musculoskeletal: Reports fractures, Denies frequent falls, Denies gait dysfunction, Denies muscle weakness, Denies myalgias Integumentary: Denies pruritus, Denies rash, Denies wounds Neurological: Denies numbness, Denies weakness Psychiatric: Denies anxiety, Denies depression Endocrine: Denies fatigue, Denies weight change Past Medical History Past Medical History: Cancer Additional Past Medical History / Comment(s): CANCER LUNG METASTATIC TO STOMACH AND BLOOD VESSELS close to THE PANCREASE; COMPLETED 5/6 CYCLES OF CHEMO, last dose 2017. no radiation History of Any Multi-Drug Resistant Organisms: None Reported Past Surgical History: Adenoidectomy, Cholecystectomy, Tonsillectomy, Tubal Ligation Additional Past Surgical History / Comment(s): FEEDING TUBE- G-TUBE, PORT A CATH, WHIPPLE SX- UNSUSCESSFUL; carpal tunnel sx Past Anesthesia/Blood Transfusion Reactions: No Reported Reaction Past Psychological History: No Psychological Hx Reported Smoking Status: Former smoker Past Alcohol Use History: None Reported Additional Past Alcohol Use History / Comment(s): The patient was a smoker and quit 2 years ago. She denies any illicit drug use or alcohol use. Past Drug Use History: None Reported - Past Family History Mother Family Medical History: No Reported History Additional Family Medical History / Comment(s): 3 uncles of cancer but does not know what kind. No history of cancer in mother or father. Patient is has 2 kids with no significant medical problems Medications and Allergies Home Medications Medication Instructions Recorded Confirmed Type RX: Ipratropium [place] [Atrovent 2 puff INHALATION RT-QID 02/27/17 10/13/18 History Hfa] RX: Omeprazole [PriLOSEC] 20 mg PO AC-BRKFST #0 10/13/17 10/13/18 Rx Fluticasone/Salmeterol [Advair 1 puff INHALATION RT-BID 10/13/18 10/13/18 History 250-50 Diskus] RX: Albuterol Nebulized [Ventolin 2.5 mg INHALATION RT-QID PRN 10/13/18 10/13/18 History Nebulized] RX: fentaNYL 25MCG/HR PATCH 1 patch TRANSDERM Q72H 10/13/18 10/13/18 History [Duragesic 25MCG/HR] Allergies Allergy/AdvReac Type Severity Reaction Status Date / Time cinnamon Allergy Anaphylaxis Verified 10/13/18 00:02 iron Allergy Rash/Hives Verified 10/13/18 00:02 levofloxacin [From Levaquin] Allergy Unknown Verified 10/13/18 00:02 morphine Allergy Rash/Hives Verified 10/13/18 00:02 Sulfa (Sulfonamide Allergy Rash/Hives Verified 10/13/18 00:02 Antibiotics) venlafaxine Allergy Wheezing Verified 10/13/18 08:07 Physical Exam Vitals: Vital Signs Temp Pulse Pulse Resp BP BP Pulse Ox 10/13/18 05:06 97.6 F 73 16 145/73 100 10/13/18 04:02 97.7 F 63 16 134/80 98 10/12/18 23:59 73 24 159/79 100 Intake and Output 10/12/18 10/13/18 10/13/18 22:59 06:59 14:59 Intake Total 150 Balance 150 Intake: Intake, IV Titration 150 Amount Sodium Chloride 0.9% 1, 150 000 ml @ 75 mls/hr IV . [id number] PENDING SALE TO [facility] Rx#:[id number] Other: Voiding Method Toilet Weight 53.977 kg Gen: This is a 57-year-old female. She is resting bed appears to be comfortable. HEENT: Head is atraumatic, normocephalic. Pupils equal, round. Sclerae is anicteric. NECK: Supple. No JVD. No lymphadenopathy. No thyromegaly. LUNGS: Clear to auscultation. No wheezes or rhonchi. No intercostal retractions. HEART: Regular rate and rhythm. No murmur. ABDOMEN: Soft. Bowel sounds are present. No masses. Left upper quadrant tenderness. EXTREMITIES: No pedal edema. No calf tenderness. NEUROLOGICAL: Patient is awake, alert and oriented x3. Cranial nerves 2 through 12 are grossly intact. Results CBC & Chem 7: 10/14/18 08:12 10/15/18 07:50 Labs: Abnormal Lab Results - Last 24 Hours (Table) 10/13/18 10/13/18 10/13/18 Range/Units 01:14 01:14 07:40 RBC 3.54 L (3.80-5.40) m/uL Chloride 109 H (98-107) mmol/L Carbon Dioxide 19 L (22-30) mmol/L BUN 27 H (7-17) mg/dL Creatinine 1.07 H (0.52-1.04) mg/dL Glucose 208 H (74-99) mg/dL POC Glucose (mg/dL) 155 H (75-99) mg/dL Calcium 10.6 H (8.4-10.2) mg/dL Urine Blood (Negative) Urine RBC (0-5) /hpf 10/13/18 Range/Units 08:30 RBC (3.80-5.40) m/uL Chloride (98-107) mmol/L Carbon Dioxide (22-30) mmol/L BUN (7-17) mg/dL Creatinine (0.52-1.04) mg/dL Glucose (74-99) mg/dL POC Glucose (mg/dL) (75-99) mg/dL Calcium (8.4-10.2) mg/dL Urine Blood Trace H (Negative) Urine RBC 6 H (0-5) /hpf Thrombosis Risk Factor Assmnt - DVT/VTE Prophylaxis DVT/VTE Prophylaxis: Pharmacologic Prophylaxis ordered - Choose All That Apply Any of the Below Risk Factors Present?: Yes Each Factor Represents 1 point: Age 41-60 years, Serious lung disease incl. pneumonia (< 1month) Other Risk Factors: Yes Each Risk Factor Represents 2 Points: Central venous access Thrombosis Risk Factor Assessment Total Risk Factor Score: 4 Thrombosis Risk Factor Assessment Level: Moderate Risk Assessment and Plan Plan: 1. Intractable nausea and vomiting and abdominal pain secondary to combination of metastatic cancer and chemotherapy. CT of the abdomen and pelvis with contrast ordered, consult with oncology, clear liquid diet, IV fluids at 75 mL per hour, Zofran and Compazine for nausea and vomiting. Patient's will bring in fentanyl patch from home. 2. Metastatic lung cancer. Continue albuterol nebulizer 4 times daily as needed and Symbicort twice daily. 3. Synthroid symptoms of neuropathy in the hands and legs and head buzzing, possible side effect to chemotherapy. 4. GI prophylaxis. Protonix. 5. DVT prophylaxis heparin subcu every 12 hours. Patient will be admitted to the hospital for a minimum of 2 night stay. Discharge plan: Most likely return home Impression and plan of care have been directed as dictated by the signing physician. Lucina Murcia nurse practitioner acting as scribe for signing physician.
--- NOTE | 2018-10-13 14:43 | CT ---
EXAMINATION TYPE: CT abdomen pelvis w con DATE OF EXAM: 10/13/2018 HISTORY: abdominal pain and vomiting. hx of lung and stomach ca. CT DLP: 405.6mGycm Automated Exposure Control for Dose Reduction was Utilized. CONTRAST: CT scan of the abdomen and pelvis is performed with IV Contrast, patient injected with 80cc mL of Iso aurelia 300. COMPARISON: CT abdomen and pelvis August 12, 2018 FINDINGS: LUNG BASES: No significant abnormality is appreciated. LIVER/GB: Cholecystectomy clips are redemonstrated. There is stable mild central extrahepatic biliary dilatation without significant intrahepatic biliary dilatation. There is stable roughly 1.0 cm simpl e appearing cyst hepatic dome axial image 11. Few scattered subcentimeter hypodense lesions are too s mall to further characterize but presumed benign. PANCREAS: Surgical clips at level of pancreatic head with poor visualization of pancreatic head and u ncinate process is redemonstrated. SPLEEN: Displaced clip anterior to spleen is redemonstrated ADRENALS: No significant abnormality is seen. KIDNEYS: No significant abnormality is seen. BOWEL: Evaluation bowel is suboptimal due to patient having virtual no intra-abdominal fat. An additi onal contrast only reaches mid small bowel loops in the pelvis. There is no suspicious small or large bowel dilatation identified. There is some prominence of fecal material throughout the colon particu larly the right colon as well as sigmoid rectal colon. There is persistent focal thickening proximal stomach just below diaphragm. UTERUS/ADNEXA: No gross abnormality seen. LYMPH NODES: No greater than 1cm abdominal or pelvic lymph nodes are appreciated. OSSEOUS STRUCTURES: Postsurgical change lower lumbar spine with artificial disc material and posterio r fusion hardware L4-L5 level is redemonstrated. There is persistent grade 1 anterolisthesis of L3 on L4. There is persistent mild to moderate disc space narrowing L3-L4 level. Moderate narrowing both h ip joints is present. OTHER: No significant additional abnormality is seen. IMPRESSION: 1. No bowel obstruction is present. There is mild to moderate diffuse colonic fecal stasis redemonstr ated.
[2018-10-13 17:05] LABS: Glucose,Whole Blood 126 mg/dL (75-99)
--- NOTE | 2018-10-13 17:07 | P.CONS ---
History of Present Illness - Reason for Consult Consult date: 10/13/18 Metastatic Lung Cancer Requesting physician: Lucina Murcia - Chief Complaint Shortness of breath, buzzing in head, and hands numb - History of Present Illness Ms Winslow is a 57-year-old female patient known to our practive for her diagnosis of non-small cell adenocarcinoma of the lung. She was seen originially for diagnosis in 2013, was doing well until April 2016. In September of 2016 CT scan revealed new pancreatic mass, which was encasing the stomach and occluding the gastric artery, as well as, multiple subcentimeter liver lesions consistent with metastatic disease. She underwent exploratory lap and biopsy in October 2016 which revealed consistence with lung origin metsatatic disease pancrese and liver. Since November of 2016 she has received multiple lines of chemotherapy. Most recently opdivo which actually was initiated in May 2017 and has continued until her last treatment on October 08, 2018. Her last cortisol levels 10, TSH 0.990 (09/17/18). Last imaging of brain was in 2016, no metastatic disease identified to brain. She does complain of persistent nausea after her immune therapy infusions but quickly resolves. Her metastatic Cancer has been stable for over a year on opdivo. She now presented to emergency with complaints of shortness of breath, numbness and tingling in hands and feet, and new buzzing in ears. CT of abdomen and pelvis reviewed and no acute findings identified. She states she recently was started on new antidepressant and shortly after taking she broke into hot and cold sweats, then chills, was short of breath. She states she has been having more nausea, right sided weakness and feels like she is walking leaning to right. Review of Systems A 14 point review of systems assessed and completed and all negative except HPI Past Medical History Past Medical History: Cancer Additional Past Medical History / Comment(s): CANCER LUNG METASTATIC TO STOMACH AND BLOOD VESSELS close to THE PANCREASE; COMPLETED 5/6 CYCLES OF CHEMO, last dose 2017. no radiation History of Any Multi-Drug Resistant Organisms: None Reported Past Surgical History: Adenoidectomy, Cholecystectomy, Tonsillectomy, Tubal Ligation Additional Past Surgical History / Comment(s): FEEDING TUBE- G-TUBE, PORT A CATH, WHIPPLE SX- UNSUSCESSFUL; carpal tunnel sx Past Anesthesia/Blood Transfusion Reactions: No Reported Reaction Past Psychological History: No Psychological Hx Reported Smoking Status: Former smoker Past Alcohol Use History: None Reported Additional Past Alcohol Use History / Comment(s): The patient was a smoker and quit 2 years ago. She denies any illicit drug use or alcohol use. Past Drug Use History: None Reported - Past Family History Mother Family Medical History: No Reported History Additional Family Medical History / Comment(s): 3 uncles of cancer but does not know what kind. No history of cancer in mother or father. Patient is has 2 kids with no significant medical problems Medications and Allergies Home Medications Medication Instructions Recorded Confirmed Type Ipratropium [place] [Atrovent Hfa] 2 puff INHALATION RT-QID 02/27/17 10/13/18 History Omeprazole [PriLOSEC] 20 mg PO AC-BRKFST #0 10/13/17 10/13/18 Rx Albuterol Nebulized [Ventolin 2.5 mg INHALATION RT-QID PRN 10/13/18 10/13/18 History Nebulized] Fluticasone/Salmeterol [Advair 1 puff INHALATION RT-BID 10/13/18 10/13/18 History 250-50 Diskus] fentaNYL 25MCG/HR PATCH [Duragesic 1 patch TRANSDERM Q72H 10/13/18 10/13/18 History 25MCG/HR] Allergies Allergy/AdvReac Type Severity Reaction Status Date / Time cinnamon Allergy Anaphylaxis Verified 10/13/18 00:02 iron Allergy Rash/Hives Verified 10/13/18 00:02 levofloxacin [From Levaquin] Allergy Unknown Verified 10/13/18 00:02 morphine Allergy Rash/Hives Verified 10/13/18 00:02 Sulfa (Sulfonamide Allergy Rash/Hives Verified 10/13/18 00:02 Antibiotics) venlafaxine Allergy Wheezing Verified 10/13/18 08:07 Physical Exam Vitals: Vital Signs Temp Pulse Pulse Resp BP BP Pulse Ox 10/13/18 16:14 63 10/13/18 16:07 61 98 10/13/18 14:41 68 17 10/13/18 12:34 68 10/13/18 12:25 64 10/13/18 11:56 97.4 F L 68 17 164/74 99 10/13/18 05:06 97.6 F 73 16 145/73 100 10/13/18 04:02 97.7 F 63 16 134/80 98 10/12/18 23:59 73 24 159/79 100 Intake and Output 10/13/18 10/13/18 10/13/18 06:59 14:59 22:59 Intake Total 150 1830 Balance 150 1830 Intake: Intake, IV Titration 150 650 Amount Sodium Chloride 0.9% 1, 150 650 000 ml @ 75 mls/hr IV . [id number] [facility] Rx#:[id number] Oral 1180 Other: Voiding Method Toilet Toilet # Voids 2 Weight 53.977 kg Gen: Alert and oriented, no acute distress Head NC, NT Neck: Supple, Trachea Midline No adenopathy on Palpation Lungs with mild increased effort otherwise clear to ausculation Abdomen: Soft, ND, Non tender Heart RRR, S1s2 Extremities, no edema, no rashes. Neuro: Results CBC & Chem 7: 10/13/18 01:14 10/13/18 01:14 Labs: Abnormal Lab Results - Last 24 Hours (Table) 10/13/18 10/13/18 10/13/18 Range/Units 01:14 01:14 07:40 RBC 3.54 L (3.80-5.40) m/uL Chloride 109 H (98-107) mmol/L Carbon Dioxide 19 L (22-30) mmol/L BUN 27 H (7-17) mg/dL Creatinine 1.07 H (0.52-1.04) mg/dL Glucose 208 H (74-99) mg/dL POC Glucose (mg/dL) 155 H (75-99) mg/dL Calcium 10.6 H (8.4-10.2) mg/dL Urine Blood (Negative) Urine RBC (0-5) /hpf 10/13/18 10/13/18 Range/Units 08:30 11:26 RBC (3.80-5.40) m/uL Chloride (98-107) mmol/L Carbon Dioxide (22-30) mmol/L BUN (7-17) mg/dL Creatinine (0.52-1.04) mg/dL Glucose (74-99) mg/dL POC Glucose (mg/dL) 151 H (75-99) mg/dL Calcium (8.4-10.2) mg/dL Urine Blood Trace H (Negative) Urine RBC 6 H (0-5) /hpf CT scan - abdomen: report reviewed CT scan - pelvis: report reviewed Assessment and Plan Plan: Assessment and Recommendations: 1. Metastatic Adenocarcinoma of the lung: Metastatic disease to Liver and Pancrease - Original Diagnosis 2013 - Multiple lines of chemotherapy - Immune therapy with Opdivo since 2016 and patient has remained in a remission on this maintenance 2. 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 Buzzing in Ears: New - ?Hypercalcemia - 4. Perisistent Nausea and occassional intermitted emesis, usually associated with each immune therapy - Need to consider the possibility of metastatic brain pathology. Will await other testing related to Hypercalcemia and if problem persists will evaluate further with 5. Shortnness of breath - Worse on Exertion - Improved since admission - chest Xray ordered, if persists will order CT as she has not had in recent months for restaging of her metastatic lung cancer - 6. Hypercalcemia: Maybe secondary to dehydration - check PTH, TSH, Vitamin D, Phos, Mag, Uric Acid, Ionized Cacium - Check Bone Scan for Metastatic disease to bone 7. Acute on chronic Renal Insufficiency: - Her baseline over the past year of treatment has been a creatinine approx 1.2 - Continue IV Hydration for hypercalcemia 8. Unilateral weakness, dizzyness and headaches. - MRI Brain ordered Physician Attest: I have completed the full history and physical of this patient ans agree with above dictation by Kerri Masterson NP Dictated as a scribe
[2018-10-13] MEDS: PROCHLORPERAZINE 5 MG TAB PO PRN (17:56)
--- NOTE | 2018-10-13 18:38 | XR ---
EXAMINATION TYPE: XR chest 2V DATE OF EXAM: 10/13/2018 COMPARISON: 10/11/2017 HISTORY: Short of breath TECHNIQUE: Frontal and lateral views of the chest are obtained. FINDINGS: There is no heart failure nor confluent pneumonic infiltrate. Heart size is normal. There is mild pleural thickening at the right lung apex. There is right-sided central venous catheter with the tip in the superior vena cava. There is no pleural effusion. IMPRESSION: No active cardiopulmonary disease. Normal heart. Right apical pleural pulmonary scarring . No change.
[2018-10-13 18:48] LABS: Ionized Calcium 5.2 mg/dL (4.5-5.3)
[2018-10-13 19:25] LABS: Magnesium 1.7 mg/dL (1.6-2.3); Phosphorus 3.5 mg/dL (2.5-4.5); Uric Acid 2.7 mg/dL (3.7-7.4)
[2018-10-13 20:12] LABS: Glucose,Whole Blood 70 mg/dL (75-99)
[2018-10-13] MEDS: HEPARIN SODIUM,PORCINE 5,000 UNIT/ML 1 ML VIAL SQ SCH (20:40)
[2018-10-13 20:47] LABS: T4, Free (Free Thyroxine) 1.01 ng/dL (0.78-2.19)
[2018-10-13] MEDS: HYDROmorphone 0.5 MG/0.5 ML SYRINGE IVP PRN (20:56)
[2018-10-14 02:24] LABS: Glucose,Whole Blood 93 mg/dL (75-99)
[2018-10-14] MEDS: ONDANSETRON 4 MG/2 ML VIAL IVP PRN (06:06)
[2018-10-14 07:16] LABS: Glucose,Whole Blood 89 mg/dL (75-99)
[2018-10-14] MEDS: SYMBICORT 80-4.5 MCG INHALER INHALATION SCH ×2 (08:01→20:55)
[2018-10-14] MEDS: IPRATROPIUM 0.5 MG/2.5 ML NEBU INHALATION SCH ×4 (08:01→20:55)
[2018-10-14] MEDS: PANTOPRAZOLE 40 MG TABLET PO SCH (08:34)
[2018-10-14] MEDS: HEPARIN SODIUM,PORCINE 5,000 UNIT/ML 1 ML VIAL SQ SCH ×2 (08:34→21:52)
[2018-10-14 08:59] LABS: Basophils # (A) 0.1 k/uL (0-0.2); Basophils % (A) 1 %; Eosinophils # (A) 0.1 k/uL (0-0.7); Eosinophils % (A) 2 %; HCT 38.3 % (34.0-46.0); HGB 11.7 gm/dL (11.4-16.0); Lymphocytes # (A) 1.8 k/uL (1.0-4.8); Lymphocytes % (A) 26 %; MCH 31.6 pg (25.0-35.0); MCHC 30.5 g/dL (31.0-37.0); MCV 103.7 fL (80.0-100.0); Macrocytosis Slight; Mean Platelet Volume 7.3; Monocytes # (A) 0.4 k/uL (0-1.0); Monocytes % (A) 6 %; Neutrophils # (A) 4.4 k/uL (1.3-7.7); Neutrophils % (A) 64 %; Platelet Count 234 k/uL (150-450); RBC 3.69 m/uL (3.80-5.40); RDW 13.2 % (11.5-15.5); WBC 6.9 k/uL (3.8-10.6)
[2018-10-14] MEDS ORDERED: LORazepam 2 MG/ML INJ IV ONE (09:00)
[2018-10-14 09:38] LABS: Ionized Calcium 5.4 mg/dL (4.5-5.3)
[2018-10-14 09:49] LABS: Albumin 4.2 g/dL (3.5-5.0); Calcium 9.5 mg/dL (8.4-10.2); Magnesium 1.8 mg/dL (1.6-2.3); Phosphorus 3.1 mg/dL (2.5-4.5); Potassium 4.2 mmol/L (3.5-5.1); Total Bilirubin 0.6 mg/dL (0.2-1.3); Total Protein 6.7 g/dL (6.3-8.2)
--- NOTE | 2018-10-14 10:37 | P.NPCON ---
History of Present Illness - Reason for Consult acute renal failure - History of Present Illness Reason for consultation: Acute kidney injury and hypercalcemia History of present illness: Patient is a 57-year-old female seen in renal consultation for acute kidney injury and hypercalcemia. Patient's calcium level on admission was 10.6 and is down to 9.5 today. Patient presented to the hospital with abdominal pain along with vomiting which started 2 days ago. Patient attributes her symptoms to an antidepressant which she started 2 days ago. Overall she is feeling better. No further vomiting. No diarrhea. Denies use of nonsteroidals. Renal function is stable with creatinine of 1.07 today. She does have history of lung cancer and is maintained on Opdiva. PTH level was noted to be high at 110.4. She admits to good urine output. No hematuria or dysuria. No history of diabetes. CT of the abdomen and pelvis revealed no evidence of hydronephrosis. Patient received IV contrast on October 13. Vital signs are stable. General: The patient appeared well nourished and normally developed. HEENT: Head exam is unremarkable. Neck is without jugular venous distension. LUNGS: Lungs are clear to auscultation and percussion. Breath sounds decreased. HEART: Rate and Rhythm are regular. First and second heart sounds normal. No murmurs, rubs or gallops. ABDOMEN: Abdominal exam reveals normal bowel sounds. Non-tender and non- distended. No evidence of peritonitis. EXTREMITITES: No clubbing, cyanosis, or edema. Past Medical History Past Medical History: Cancer Additional Past Medical History / Comment(s): CANCER LUNG METASTATIC TO STOMACH AND BLOOD VESSELS close to THE PANCREASE; COMPLETED 5/6 CYCLES OF CHEMO, last dose 2017. no radiation History of Any Multi-Drug Resistant Organisms: None Reported Past Surgical History: Adenoidectomy, Cholecystectomy, Tonsillectomy, Tubal Ligation Additional Past Surgical History / Comment(s): FEEDING TUBE- G-TUBE, PORT A CATH, WHIPPLE SX- UNSUSCESSFUL; carpal tunnel sx Past Anesthesia/Blood Transfusion Reactions: No Reported Reaction Past Psychological History: No Psychological Hx Reported Smoking Status: Former smoker Past Alcohol Use History: None Reported Additional Past Alcohol Use History / Comment(s): The patient was a smoker and quit 2 years ago. She denies any illicit drug use or alcohol use. Past Drug Use History: None Reported - Past Family History Mother Family Medical History: No Reported History Additional Family Medical History / Comment(s): 3 uncles of cancer but does not know what kind. No history of cancer in mother or father. Patient is lou wright has 2 kids with no significant medical problems Medications and Allergies Home Medications Medication Instructions Recorded Confirmed Type Ipratropium [place] [Atrovent Hfa] 2 puff INHALATION RT-QID 02/27/17 10/13/18 History Omeprazole [PriLOSEC] 20 mg PO AC-BRKFST #0 10/13/17 10/13/18 Rx Albuterol Nebulized [Ventolin 2.5 mg INHALATION RT-QID PRN 10/13/18 10/13/18 History Nebulized] Fluticasone/Salmeterol [Advair 1 puff INHALATION RT-BID 10/13/18 10/13/18 History 250-50 Diskus] fentaNYL 25MCG/HR PATCH [Duragesic 1 patch TRANSDERM Q72H 10/13/18 10/13/18 History 25MCG/HR] Allergies Allergy/AdvReac Type Severity Reaction Status Date / Time cinnamon Allergy Anaphylaxis Verified 10/13/18 00:02 iron Allergy Rash/Hives Verified 10/13/18 00:02 levofloxacin [From Levaquin] Allergy Unknown Verified 10/13/18 00:02 morphine Allergy Rash/Hives Verified 10/13/18 00:02 Sulfa (Sulfonamide Allergy Rash/Hives Verified 10/13/18 00:02 Antibiotics) venlafaxine Allergy Wheezing Verified 10/13/18 08:07 Physical Exam Vitals: Vital Signs Temp Pulse Pulse Resp BP BP Pulse Ox 10/14/18 09:49 98.4 F 51 L 16 136/68 10/14/18 08:12 60 10/14/18 08:04 58 L 98 10/14/18 08:00 51 L 16 10/14/18 04:03 98.0 F 56 L 18 119/62 98 10/13/18 20:27 64 10/13/18 20:17 62 10/13/18 20:10 98.1 F 52 L 18 121/62 100 10/13/18 16:14 63 10/13/18 16:07 61 98 10/13/18 14:41 68 17 10/13/18 12:34 68 10/13/18 12:25 64 10/13/18 11:56 97.4 F L 68 17 164/74 99 Intake and Output 10/13/18 10/14/18 10/14/18 22:59 06:59 14:59 Intake Total 225 590 Balance 225 590 Intake: Intake, IV Titration 225 Amount Sodium Chloride 0.9% 1, 225 000 ml @ 75 mls/hr IV . [id number] [facility] Rx#:[id number] Oral 590 Other: Voiding Method Toilet Toilet # Voids 2 2 Results - Lab Results Most recent lab results Calcium 9.5 mg/dL (8.4-10.2) 10/14/18 08:12 Phosphorus 3.1 mg/dL (2.5-4.5) 10/14/18 08:12 Magnesium 1.8 mg/dL (1.6-2.3) 10/14/18 08:12 10/14/18 08:12 10/14/18 08:12 Assessment and Plan Plan: Assessment: 1. Mild acute kidney injury mostly prerenal secondary to intravascular volume depletion from diarrhea. Patient also received IV contrast dye on October 21. Creatinine stable at 1.07. No hydronephrosis noted on CT. No proteinuria on UA. 2. Diarrhea, improved. Possibly due to side effect of an antidepressant. 3. Hypercalcemia secondary to volume contraction. Improved with IV hydration. Need to rule out primary hyperparathyroidism as PTH is quite elevated at 110.4. Vitamin D level normal at 19.2. 4. History of lung cancer. Oncology following. 5. Metabolic acidosis secondary to GI losses. Better. Plan: Maintain normal saline at 75 mL an hour. Check 125 D3, electrophoresis and MARY level. Check nuclear parathyroid scan. Continue to monitor renal function and urine output. Repeat electrolytes in the morning. Thank you for the consultation. I will continue to follow the patient with you during her hospital stay.
[2018-10-14 11:44] VITALS: BMI 21.0
[2018-10-14 11:59] LABS: Glucose,Whole Blood 74 mg/dL (75-99)
--- NOTE | 2018-10-14 12:05 | NM ---
EXAMINATION TYPE: NM bone scan whole body DATE OF EXAM: 10/14/2018 COMPARISON: CT dated 10/13/2018 HISTORY: Hypercalcemia. History of lung cancer and stomach cancer. Delayed whole-body scanning was performed following the injection of 25.8 mCi Tc 99m MDP. Images acq uired 3.25 hours post injection. FINDINGS: Radiotracer is seen within the kidneys and urinary bladder and therefore SuperScan is not evident. Th ere is symmetric uptake at the femoral acetabular joints, chromic clavicular joints, glenohumeral rigo nts, and sternoclavicular joints as well as of the sacroiliac joints and to a lesser degree of the el bows, wrists, knees, and ankles all compatible with degenerative change. There is avid uptake within the spine throughout that may be on the basis of degenerative disc disease as no suspicious osseous l esion is seen on the CT dated 10/13/2018. More focal uptake is seen within the L4 vertebral body and L 3 vertebral body. IMPRESSION: No suspicious radiotracer uptake to suggest metastatic disease. Thoracic and lumbar uptake is presuma mindy on a degenerative basis with more focal uptake at L3-L4 at the site of anterolisthesis on the CT of 10/13/2018.
--- NOTE | 2018-10-14 13:22 | MR ---
EXAMINATION TYPE: MR brain wo/w con DATE OF EXAM: 10/14/2018 COMPARISON: Prior brain MRI dated 09/06/2009 HISTORY: falls, dizziness, right weak, met cancer TECHNIQUE: Multiplanar, multisequence images of the brain and brainstem is performed without and with IV contras t, utilizing 5.5 mL intravenous Gadavist . FINDINGS: There is motion on the exam. Artifact may limit sensitivity. Diffusion weighted images demo nstrate no evidence of a recent infarct or other diffusion abnormality. There is no extra-axial flui d collection or significant white matter signal abnormality. The ventricular system and cisternal sp aces are normal in size and appearance. The brain volume is age appropriate. Midline structures demonstrate normal morphology. The craniocervical junction appears within normal limits. Post contrast images demonstrate no abnormal enhancement. The dural venous sinuses appear pa tent. The visualized sinuses are remarkable for mucosal disease within the maxillary sinuses, ethmoid air cells, frontal sinus and the globes are intact. IMPRESSION: No suspicious enhancement to suggest metastatic disease. There is some motion on the exam . Sinus disease.
--- NOTE | 2018-10-14 14:57 | P.PN ---
Subjective Progress Note Date: 10/14/18 This is a 57-year-old female patient of Dr. Lee and Dr. 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 Attempted Whipple procedure was done in 2016 but was unsuccessful. History of pyloric stenosis status post Botox injection 15 years ago. The patient is currently under care of Dr. Blake for chemotherapy and her last dose was done on Thursday. She receives once monthly. Patient says she always has of nausea with a little bit of vomiting and abdominal pain. Yesterday became short of breath and her hands and legs were numb and her head was buzzing. She denies having any sick contacts, no fever or chills. She came into [facility] emergency center for evaluation. KUB of the abdomen showed no acute findings. She has been afebrile, heart rate in the 60s and 70s, blood pressure this morning 164/74, pulse ox 99% on room air. Patient has normal white count and hemoglobin and platelet count. Chloride 109 and CO2 19, BUN 27 and creatinine 1.07. Initial blood sugar 208. Lactic acid 2. As observation status for intractable vomiting and hyperglycemia. Calcium 10.6, troponin negative. Urinalysis was nitrate and leukoesterase negative, acetone negative. We will add consult for oncology and CAT scan of the abdomen and pelvis will be ordered. 10/14: Patient has been seen by oncology for metastatic adenocarcinoma of the lung with metastatic disease to the liver and pancreas. They have ordered an MRI of the brain and bone scan for metastatic disease to bone. MRI of the brain reveals no suspicious enhancement to suggest metastatic disease. Sinus disease. Bone scan shows no suspicious radiotracer uptake to suggest metastatic disease. Thoracic and lumbar uptake is presumably on a degenerative basis with more focal uptake at L3 and L4 at the site of anterolisthesis on the CT. CAT scan of the abdomen and pelvis showed no bowel obstruction present. Mild to moderate diffuse colonic fecal stasis redemonstrated. Chest x-ray shows no active cardiopulmonary disease. Normal heart. Right apical pleural pulmonary scarring. No change. Patient has been seen by nephrology for mild acute kidney injury secondary to intravascular volume depletion from diarrhea, hypercalcemia secondary to volume contraction, metabolic acidosis. Dr. Han recommends cont inuing IV fluids at 75 mL per hour, lab work has been ordered as well as a nuclear parathyroid scan. Patient has been afebrile, heart rate in the 50s and 60s, blood pressure 136/68, pulse ox 99% on room air. White count is normal at 6.9, hemoglobin 11.7, platelet count 234. Sodium 140, potassium 4.2, chloride 109, CO2 23, BUN 17 and creatinine 1.07. Blood sugars running between 70 and 89. Total bilirubin 0.6, AST 64, ALT 66, alkaline phosphatase 70. Albumin 4.2. Review of Systems Constitutional: Reports anorexia, Reports weakness, Denies chills, Denies fatigue, Denies fever Eyes: denies blurred vision, denies pain Ears, nose, mouth and throat: Denies dysphagia, Denies headache, Denies sore thr oat, Denies vertigo Cardiovascular: Reports dyspnea on exertion, Reports shortness of breath, Denies chest pain, Denies edema, Denies leg edema, Denies lightheadedness, Denies syncope Respiratory: Reports dyspnea, Denies cough, Denies cough with sputum, Denies excessive sputum, Denies hemoptysis, Denies home oxygen, Denies wheezing Gastrointestinal: Reports abdominal pain, Reports loss of appetite, Reports nausea, Reports vomiting, Denies diarrhea Genitourinary: Denies dysuria, Denies hematuria, Denies urgency, Denies urinary frequency Musculoskeletal: Reports fractures, Denies frequent falls, Denies gait dysfunction, Denies muscle weakness, Denies myalgias Integumentary: Denies pruritus, Denies rash, Denies wounds Neurological: Denies numbness, Denies weakness Psychiatric: Denies anxiety, Denies depression Endocrine: Denies fatigue, Denies weight change Objective - Vital Signs Vital signs: Vital Signs Temp 98.4 F 10/14/18 09:49 Pulse 51 L 10/14/18 09:49 Resp 16 10/14/18 09:49 BP 136/68 10/14/18 09:49 Pulse Ox 98 10/14/18 08:04 Intake & Output 10/13/18 10/14/18 10/14/18 18:59 06:59 18:59 Intake Total 1830 815 Balance 1830 815 Weight 53.977 kg Intake: Intake, IV Titration 650 225 Amount Sodium Chloride 0.9% 1, 650 225 000 ml @ 75 mls/hr IV . [id number] [facility] Rx#:[id number] Oral 1180 590 Other: Voiding Method Toilet Toilet Toilet # Voids 2 2 2 - Exam Gen: This is a 57-year-old female. She is resting bed appears to be comfortable. No acute distress noted. HEENT: Head is atraumatic, normocephalic. Pupils equal, round. Sclerae is anicteric. NECK: Supple. No JVD. No lymphadenopathy. No thyromegaly. LUNGS: Clear to auscultation. No wheezes or rhonchi. No intercostal retractions. HEART: Regular rate and rhythm. No murmur. ABDOMEN: Soft. Bowel sounds are present. No masses. Left upper quadrant tenderness. EXTREMITIES: No pedal edema. No calf tenderness. NEUROLOGICAL: Patient is awake, alert and oriented x3. Cranial nerves 2 through 12 are grossly intact. - Labs CBC & Chem 7: 10/14/18 08:12 10/14/18 08:12 Labs: Abnormal Lab Results - Last 24 Hours (Table) 10/13/18 10/13/18 10/13/18 Range/Units 17:04 18:11 18:11 RBC (3.80-5.40) m/uL MCV (80.0-100.0) fL MCHC (31.0-37.0) g/dL Chloride (98-107) mmol/L Creatinine (0.52-1.04) mg/dL POC Glucose (mg/dL) 126 H (75-99) mg/dL Uric Acid 2.7 L (3.7-7.4) mg/dL Ionized Calcium Bia (4.5-5.3) mg/dL AST (14-36) U/L ALT (9-52) U/L Vitamin D 25-Hydroxy (30.0-100.0) ng/mL TSH 0.174 L (0.465-4.680) mIU/L PTH Intact 110.4 H (14.0-72.0) pg/mL 10/13/18 10/13/18 10/14/18 Range/Units 18:11 20:11 08:12 RBC 3.69 L (3.80-5.40) m/uL MCV 103.7 H (80.0-100.0) fL MCHC 30.5 L (31.0-37.0) g/dL Chloride (98-107) mmol/L Creatinine (0.52-1.04) mg/dL POC Glucose (mg/dL) 70 L (75-99) mg/dL Uric Acid (3.7-7.4) mg/dL Ionized Calcium Bia (4.5-5.3) mg/dL AST (14-36) U/L ALT (9-52) U/L Vitamin D 25-Hydroxy 19.2 L (30.0-100.0) ng/mL TSH (0.465-4.680) mIU/L PTH Intact (14.0-72.0) pg/mL 10/14/18 Range/Units 08:12 RBC (3.80-5.40) m/uL MCV (80.0-100.0) fL MCHC (31.0-37.0) g/dL Chloride 109 H (98-107) mmol/L Creatinine 1.07 H (0.52-1.04) mg/dL POC Glucose (mg/dL) (75-99) mg/dL Uric Acid (3.7-7.4) mg/dL Ionized Calcium Bia 5.4 H (4.5-5.3) mg/dL AST 64 H (14-36) U/L ALT 66 H (9-52) U/L Vitamin D 25-Hydroxy (30.0-100.0) ng/mL TSH (0.465-4.680) mIU/L PTH Intact (14.0-72.0) pg/mL Assessment and Plan Plan: 1. Intractable nausea and vomiting and abdominal pain secondary to combination of metastatic cancer and chemotherapy. CT of the abdomen and pelvis, MRI of the brain, bone scan as above. Consult with oncology is appreciated. Continue clear liquid diet, IV fluids at 75 mL per hour, Zofran and Compazine for nausea and vomiting. 2. Metastatic lung cancer. Continue albuterol nebulizer 4 times daily as needed and Symbicort twice daily. 3. GI prophylaxis. Protonix. 4. DVT prophylaxis heparin subcu every 12 hours. 5. Mild acute kidney injury with chronic kidney disease stage III. Nephrology consult appreciated. Continue IV fluids. Discharge plan: Most likely return home Impression and plan of care have been directed as dictated by the signing physician. Lucina Murcia nurse practitioner acting as scribe for signing physician.
[2018-10-14 17:11] LABS: Glucose,Whole Blood 88 mg/dL (75-99)
[2018-10-14 20:02] LABS: Glucose,Whole Blood 90 mg/dL (75-99)
[2018-10-14] MEDS: HYDROmorphone 0.5 MG/0.5 ML SYRINGE IVP PRN (21:50)
--- NOTE | 2018-10-15 00:43 | P.PN ---
Subjective Progress Note Date: 10/14/18 The patient feels significantly better. She has not had any nausea or vomiting today. She still complains of some weakness on the right, compared to the left, on questioning. At this time she denied any headache or new visual complaints. Objective - Vital Signs Vital signs: Vital Signs Temp 98.3 F 10/14/18 19:38 Pulse 64 10/14/18 21:10 Resp 16 10/14/18 19:38 BP 123/75 10/14/18 19:38 Pulse Ox 97 10/14/18 16:25 Intake & Output 10/14/18 10/14/18 10/15/18 06:59 18:59 06:59 Intake Total 315 905 9806 Output Total 400 Balance 815 600 725 Weight 53.977 kg Intake: Intake, IV Titration 225 600 525 Amount Sodium Chloride 0.9% 1, 225 600 525 000 ml @ 75 mls/hr IV . [id number] [facility] Rx#:[id number] Oral 590 600 Output: Urine 400 Stool 0 Emesis 0 Other: Voiding Method Toilet Toilet # Voids 2 2 2 # Bowel Movements 0 - Constitutional General appearance: Present: no acute distress - EENT Eyes: Present: EOMI ENT: Present: hearing grossly normal, normal oropharynx - Respiratory Respiratory: bilateral: CTA - Cardiovascular Rhythm: regular Heart sounds: normal: S1, S2 - Gastrointestinal General gastrointestinal: Present: normal bowel sounds, soft - Integumentary Integumentary: Present: normal - Neurologic Neurologic: Present: CNII-XII intact - Musculoskeletal Musculoskeletal: Present: right sided weakness - Psychiatric Psychiatric: Present: A&O x's 3, appropriate affect - Labs CBC & Chem 7: 10/14/18 08:12 10/14/18 08:12 Labs: Abnormal Lab Results - Last 24 Hours (Table) 10/13/18 10/13/18 10/14/18 Range/Units 18:11 18:11 08:12 RBC 3.69 L (3.80-5.40) m/uL MCV 103.7 H (80.0-100.0) fL MCHC 30.5 L (31.0-37.0) g/dL Chloride (98-107) mmol/L Creatinine (0.52-1.04) mg/dL POC Glucose (mg/dL) (75-99) mg/dL Ionized Calcium Bia (4.5-5.3) mg/dL AST (14-36) U/L ALT (9-52) U/L Total Protein (PEP) (6.2-8.2) g/dL Vitamin D 25-Hydroxy 19.2 L (30.0-100.0) ng/mL PTH Intact 110.4 H (14.0-72.0) pg/mL 10/14/18 10/14/18 10/14/18 Range/Units 08:12 08:12 11:58 RBC (3.80-5.40) m/uL MCV (80.0-100.0) fL MCHC (31.0-37.0) g/dL Chloride 109 H (98-107) mmol/L Creatinine 1.07 H (0.52-1.04) mg/dL POC Glucose (mg/dL) 74 L (75-99) mg/dL Ionized Calcium Bia 5.4 H (4.5-5.3) mg/dL AST 64 H (14-36) U/L ALT 66 H (9-52) U/L Total Protein (PEP) 6.0 L (6.2-8.2) g/dL Vitamin D 25-Hydroxy (30.0-100.0) ng/mL PTH Intact (14.0-72.0) pg/mL Assessment and Plan (1) Intractable vomiting with nausea Narrative/Plan: The patient is symptomatically improved significantly today. Etiology is not known at this time. MRI of the brain is pending. Based on labs, there is a possibility that this is metabolic. Continue supportive care, and await MRI results Current Visit: No Status: Acute Code(s): R11.2 - NAUSEA WITH VOMITING, UNSPECIFIED SNOMED Code(s): 288623387 (2) Hypercalcemia Narrative/Plan: Calcium is currently only mildly elevated at 10.6. Current workup and the case elevated parathyroid hormone, which makes malignant hypercalcemia less likely. Given elevated parathyroid hormone, as well as acidosis, a primary metabolic cause appears more likely. Nephrology will be consulted for further workup. Continue current treatment Current Visit: Yes Status: Acute Code(s): E83.52 - HYPERCALCEMIA SNOMED Code(s): 81297048 (3) Lung cancer Narrative/Plan: Diagnostic and therapeutic circumstances as described. Prior imaging studies have not shown any progression. MRI, and bone scan have been ordered. Await results, to check for progression. As noted above, at this time hypercalcemia is less likely to be malignant. Current Visit: No Status: Acute Code(s): C34.90 - MALIGNANT NEOPLASM OF UNSP PART OF UNSP BRONCHUS OR LUNG SNOMED Code(s): 200051081
[2018-10-15 06:59] LABS: Glucose,Whole Blood 85 mg/dL (75-99)
--- NOTE | 2018-10-15 08:20 | P.PN ---
Subjective Patient is seen in follow-up for acute kidney injury and hypercalcemia. Calcium level was 10.6 on admission and was down to 9.5 as of yesterday with IV hydration. Patient presented to the hospital with vomiting. Overall her symptoms are improved. Currently sleeping. No chest pain or shortness of breath. Oral intake is fair. Good urine output. Vital signs are stable. General: The patient appeared well nourished and normally developed. HEENT: Head exam is unremarkable. Neck is without jugular venous distension. LUNGS: Lungs are clear to auscultation and percussion. Breath sounds decreased. HEART: Rate and Rhythm are regular. First and second heart sounds normal. No murmurs, rubs or gallops. ABDOMEN: Abdominal exam reveals normal bowel sounds. Non-tender and non- distended. No evidence of peritonitis. EXTREMITITES: No clubbing, cyanosis, or edema. Objective - Vital Signs Vital signs: Vital Signs Temp 98.1 F 10/15/18 05:00 Pulse 63 10/15/18 05:00 Resp 16 10/15/18 07:41 BP 112/67 10/15/18 05:00 Pulse Ox 99 10/15/18 05:00 Intake & Output 10/14/18 10/15/18 10/15/18 18:59 06:59 18:59 Intake Total 600 1725 Output Total 400 Balance 600 1325 Weight 53.977 kg Intake: Intake, IV Titration 600 1125 Amount Sodium Chloride 0.9% 1, 600 1125 000 ml @ 75 mls/hr IV . [id number] [facility] Rx#:[id number] Oral 600 Output: Urine 400 Stool 0 Emesis 0 Other: Voiding Method Toilet Toilet Toilet # Voids 2 2 # Bowel Movements 0 - Labs CBC & Chem 7: 10/14/18 08:12 10/14/18 08:12 Labs: Abnormal Lab Results - Last 24 Hours (Table) 10/14/18 10/14/18 10/14/18 Range/Units 08:12 08:12 08:12 RBC 3.69 L (3.80-5.40) m/uL MCV 103.7 H (80.0-100.0) fL MCHC 30.5 L (31.0-37.0) g/dL Chloride 109 H (98-107) mmol/L Creatinine 1.07 H (0.52-1.04) mg/dL POC Glucose (mg/dL) (75-99) mg/dL Ionized Calcium Bia 5.4 H (4.5-5.3) mg/dL AST 64 H (14-36) U/L ALT 66 H (9-52) U/L Total Protein (PEP) 6.0 L (6.2-8.2) g/dL 10/14/18 Range/Units 11:58 RBC (3.80-5.40) m/uL MCV (80.0-100.0) fL MCHC (31.0-37.0) g/dL Chloride (98-107) mmol/L Creatinine (0.52-1.04) mg/dL POC Glucose (mg/dL) 74 L (75-99) mg/dL Ionized Calcium Bia (4.5-5.3) mg/dL AST (14-36) U/L ALT (9-52) U/L Total Protein (PEP) (6.2-8.2) g/dL Assessment and Plan Plan: Assessment: 1. Mild acute kidney injury mostly prerenal secondary to intravascular volume depletion from diarrhea. Patient also received IV contrast dye on October 13. Creatinine stable at 1.07. No hydronephrosis noted on CT. No proteinuria on UA. 2. Diarrhea, improved. Possibly due to side effect of an antidepressant. 3. Hypercalcemia secondary to volume contraction. Improved with IV hydration. Need to rule out primary hyperparathyroidism as PTH is quite elevated at 110.4. Vitamin D level normal at 19.2. 4. History of lung cancer. Oncology following. 5. Metabolic acidosis secondary to GI losses. Better. Plan: Maintain normal saline at 75 mL an hour. Follow-up 125 D3, electrophoresis and MARY level. Follow-up nuclear parathyroid scan. Continue to monitor renal function and urine output. Repeat electrolytes in the morning. Bone scan revealed no evidence of metastatic disease. Brain MRI also does not suggest metastasis.
[2018-10-15] MEDS: PANTOPRAZOLE 40 MG TABLET PO SCH (08:23)
[2018-10-15] MEDS: HEPARIN SODIUM,PORCINE 5,000 UNIT/ML 1 ML VIAL SQ SCH ×2 (08:24→21:14)
[2018-10-15 08:38] LABS: Calcium 9.4 mg/dL (8.4-10.2); Magnesium 1.8 mg/dL (1.6-2.3); Potassium 4.3 mmol/L (3.5-5.1)
[2018-10-15] MEDS: IPRATROPIUM 0.5 MG/2.5 ML NEBU INHALATION SCH ×4 (08:50→20:40)
[2018-10-15] MEDS: SYMBICORT 80-4.5 MCG INHALER INHALATION SCH ×2 (08:50→20:40)
[2018-10-15 11:16] LABS: Glucose,Whole Blood 87 mg/dL (75-99)
[2018-10-15] MEDS: SODIUM CHLORIDE 0.9% 1,000 ML IV SCH ×3 (11:55→23:48)
[2018-10-15] MEDS: ONDANSETRON 4 MG/2 ML VIAL IVP PRN ×2 (11:57→21:16)
--- NOTE | 2018-10-15 13:35 | P.PN ---
Subjective Progress Note Date: 10/15/18 This is a 57-year-old female patient of Dr. Lee and Dr. 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 Attempted Whipple procedure was done in 2016 but was unsuccessful. History of pyloric stenosis status post Botox injection 15 years ago. The patient is currently under care of Dr. Blake for chemotherapy and her last dose was done on Thursday. She receives once monthly. Patient says she always has of nausea with a little bit of vomiting and abdominal pain. Yesterday became short of breath and her hands and legs were numb and her head was buzzing. She denies having any sick contacts, no fever or chills. She came into [facility] emergency center for evaluation. KUB of the abdomen showed no acute findings. She has been afebrile, heart rate in the 60s and 70s, blood pressure this morning 164/74, pulse ox 99% on room air. Patient has normal white count and hemoglobin and platelet count. Chloride 109 and CO2 19, BUN 27 and creatinine 1.07. Initial blood sugar 208. Lactic acid 2. As observation status for intractable vomiting and hyperglycemia. Calcium 10.6, troponin negative. Urinalysis was nitrate and leukoesterase negative, acetone negative. We will add consult for oncology and CAT scan of the abdomen and pelvis will be ordered. 10/14: Patient has been seen by oncology for metastatic adenocarcinoma of the lung with metastatic disease to the liver and pancreas. They have ordered an MRI of the brain and bone scan for metastatic disease to bone. MRI of the brain reveals no suspicious enhancement to suggest metastatic disease. Sinus disease. Bone scan shows no suspicious radiotracer uptake to suggest metastatic disease. Thoracic and lumbar uptake is presumably on a degenerative basis with more focal uptake at L3 and L4 at the site of anterolisthesis on the CT. CAT scan of the abdomen and pelvis showed no bowel obstruction present. Mild to moderate diffuse colonic fecal stasis redemonstrated. Chest x-ray shows no active cardiopulmonary disease. Normal heart. Right apical pleural pulmonary scarring. No change. Patient has been seen by nephrology for mild acute kidney injury secondary to intravascular volume depletion from diarrhea, hypercalcemia secondary to volume contraction, metabolic acidosis. Dr. Han recommends cont inuing IV fluids at 75 mL per hour, lab work has been ordered as well as a nuclear parathyroid scan. Patient has been afebrile, heart rate in the 50s and 60s, blood pressure 136/68, pulse ox 99% on room air. White count is normal at 6.9, hemoglobin 11.7, platelet count 234. Sodium 140, potassium 4.2, chloride 109, CO2 23, BUN 17 and creatinine 1.07. Blood sugars running between 70 and 89. Total bilirubin 0.6, AST 64, ALT 66, alkaline phosphatase 70. Albumin 4.2. 10/15: Patient has been afebrile, heart rate in the 60s, blood pressure 134/86, pulse ox 100% on room air. Sodium 140, potassium 4.3, chloride 112, CO2 23, BUN 15, creatinine 1.12. Calcium 9.4 and magnesium 1.8. Nausea and vomiting have resolved. She continues to have soreness in abdomen. Patient denies any chest pain or shortness of breath. She has been urinating well. Dr. Han has recommended continuing IV fluids at 75 mL per hour and follow up on laboratory studies and nuclear parathyroid scan which is scheduled for Thursday. Anticipate discharge home tomorrow. Recommend follow up with surgeon for endoscopy but not urgent. Review of Systems Constitutional: Reports anorexia, Reports weakness, Denies chills, Denies fatigue, Denies fever Eyes: denies blurred vision, denies pain Ears, nose, mouth and throat: Denies dysphagia, Denies headache, Denies sore throat, Denies vertigo Cardiovascular: Denies dyspnea on exertion, denies shortness of breath, Denies chest pain, Denies edema, Denies leg edema, Denies lightheadedness, Denies syncope Respiratory: Reports dyspnea, Denies cough, Denies cough with sputum, Denies excessive sputum, Denies hemoptysis, Denies home oxygen, Denies wheezing Gastrointestinal: Reports abdominal pain, Reports loss of appetite, denies nausea, denies vomiting, Denies diarrhea Genitourinary: Denies dysuria, Denies hematuria, Denies urgency, Denies urinary frequency Musculoskeletal:denies fractures, Denies frequent falls, Denies gait dysfunction, Denies muscle weakness, Denies myalgias Integumentary: Denies pruritus, Denies rash, Denies wounds Neurological: Denies numbness, Denies weakness Psychiatric: Denies anxiety, Denies depression Endocrine: Denies fatigue, Denies weight change Objective - Vital Signs Vital signs: Vital Signs Temp 98.1 F 10/15/18 08:39 Pulse 64 10/15/18 09:04 Resp 16 10/15/18 08:39 BP 134/86 10/15/18 08:39 Pulse Ox 100 10/15/18 08:39 Intake & Output 10/14/18 10/15/18 10/15/18 18:59 06:59 18:59 Intake Total 600 1725 Output Total 400 Balance 600 1325 Weight 53.977 kg Intake: Intake, IV Titration 600 1125 Amount Sodium Chloride 0.9% 1, 600 1125 000 ml @ 75 mls/hr IV . [id number] [facility] Rx#:[id number] Oral 600 Output: Urine 400 Stool 0 Emesis 0 Other: Voiding Method Toilet Toilet Toilet # Voids 2 2 # Bowel Movements 0 - Exam Gen: This is a 57-year-old female. She is resting bed appears to be comfortable. No acute distress noted. HEENT: Head is atraumatic, normocephalic. Pupils equal, round. Sclerae is anicteric. NECK: Supple. No JVD. No lymphadenopathy. No thyromegaly. LUNGS: Clear to auscultation. No wheezes or rhonchi. No intercostal retractions. HEART: Regular rate and rhythm. No murmur. ABDOMEN: Soft. Bowel sounds are present. No masses. Left upper quadrant tenderness. EXTREMITIES: No pedal edema. No calf tenderness. NEUROLOGICAL: Patient is awake, alert and oriented x3. Cranial nerves 2 through 12 are grossly intact. - Labs CBC & Chem 7: 10/14/18 08:12 10/15/18 07:50 Labs: Abnormal Lab Results - Last 24 Hours (Table) 10/14/18 10/14/18 10/15/18 Range/Units 08:12 11:58 07:50 Chloride 112 H (98-107) mmol/L Creatinine 1.12 H (0.52-1.04) mg/dL POC Glucose (mg/dL) 74 L (75-99) mg/dL Total Protein (PEP) 6.0 L (6.2-8.2) g/dL Assessment and Plan Plan: 1. Intractable nausea and vomiting and abdominal pain secondary to combination of metastatic cancer and chemotherapy, metabolic etiology. CT of the abdomen and pelvis as above consult with oncology, diet advanced, IV fluids at 75 mL per hour, Zofran and Compazine for nausea and vomiting. 2. Metastatic lung cancer. Continue albuterol nebulizer 4 times daily as needed and Symbicort twice daily. 3. Symptoms of neuropathy in the hands and legs and head buzzing, possible side effect to chemotherapy. 4. Mild acute kidney injury with chronic kidney disease stage III. Nephrology consult appreciated. Continue IV fluids. 5. Mild hypercalcemia. Nuclear parathyroid scan on Thursday. Nephrology consult appreciated. 5. GI prophylaxis. Protonix. 6. DVT prophylaxis heparin subcu every 12 hours. Discharge plan: Most likely return home Thursday Impression and plan of care have been directed as dictated by the signing physician. Lucina Murcia nurse practitioner acting as scribe for signing physician.
[2018-10-15 17:13] LABS: Glucose,Whole Blood 112 mg/dL (75-99)
[2018-10-15] MEDS: HYDROmorphone 0.5 MG/0.5 ML SYRINGE IVP PRN (21:14)
[2018-10-15 21:53] LABS: Glucose,Whole Blood 99 mg/dL (75-99)
[2018-10-16] MEDS: HYDROmorphone 0.5 MG/0.5 ML SYRINGE IVP PRN ×5 (01:21→18:01)
[2018-10-16] MEDS: ONDANSETRON 4 MG/2 ML VIAL IVP PRN ×3 (05:32→20:26)
[2018-10-16 06:56] LABS: Glucose,Whole Blood 93 mg/dL (75-99)
[2018-10-16 08:04] LABS: Calcium 9.5 mg/dL (8.4-10.2); Magnesium 1.7 mg/dL (1.6-2.3); Potassium 4.1 mmol/L (3.5-5.1)
[2018-10-16] MEDS: PANTOPRAZOLE 40 MG TABLET PO SCH (08:26)
[2018-10-16] MEDS: HEPARIN SODIUM,PORCINE 5,000 UNIT/ML 1 ML VIAL SQ SCH ×2 (08:27→19:36)
--- NOTE | 2018-10-16 10:28 | P.PN ---
Subjective Progress Note Date: 10/16/18 This is a 57-year-old female patient of Dr. Lee and Dr. 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 Attempted Whipple procedure was done in 2016 but was unsuccessful. History of pyloric stenosis status post Botox injection 15 years ago. The patient is currently under care of Dr. Blake for chemotherapy and her last dose was done on Thursday. She receives once monthly. Patient says she always has of nausea with a little bit of vomiting and abdominal pain. Yesterday became short of breath and her hands and legs were numb and her head was buzzing. She denies having any sick contacts, no fever or chills. She came into [facility] emergency center for evaluation. KUB of the abdomen showed no acute findings. She has been afebrile, heart rate in the 60s and 70s, blood pressure this morning 164/74, pulse ox 99% on room air. Patient has normal white count and hemoglobin and platelet count. Chloride 109 and CO2 19, BUN 27 and creatinine 1.07. Initial blood sugar 208. Lactic acid 2. As observation status for intractable vomiting and hyperglycemia. Calcium 10.6, troponin negative. Urinalysis was nitrate and leukoesterase negative, acetone negative. We will a dd consult for oncology and CAT scan of the abdomen and pelvis will be ordered. 10/14: Patient has been seen by oncology for metastatic adenocarcinoma of the lung with metastatic disease to the liver and pancreas. They have ordered an MRI of the brain and bone scan for metastatic disease to bone. MRI of the brain reveals no suspicious enhancement to suggest metastatic disease. Sinus disease. Bone scan shows no suspicious radiotracer uptake to suggest metastatic disease. Thoracic and lumbar uptake is presumably on a degenerative basis with more focal uptake at L3 and L4 at the site of anterolisthesis on the CT. CAT scan of the abdomen and pelvis showed no bowel obstruction present. Mild to moderate diffuse colonic fecal stasis redemonstrated. Chest x-ray shows no active cardiopulmonary disease. Normal heart. Right apical pleural pulmonary scarring. No change. Patient has been seen by nephrology for mild acute kidney injury secondary to intravascular volume depletion from diarrhea, hypercalcemia secondary to volume contraction, metabolic acidosis. Dr. Han recommends continuing IV fluids at 75 mL per hour, lab work has been ordered as well as a nuclear parathyroid scan. Patient has been afebrile, heart rate in the 50s and 60s, blood pressure 136/68, pulse ox 99% on room air. White count is normal at 6.9, hemoglobin 11.7, platelet count 234. Sodium 140, potassium 4.2, chloride 109, CO2 23, BUN 17 and creatinine 1.07. Blood sugars running between 70 and 89. Total bilirubin 0.6, AST 64, ALT 66, alkaline phosphatase 70. Albumin 4.2. 10/15: Patient has been afebrile, heart rate in the 60s, blood pressure 134/86, pulse ox 100% on room air. Sodium 140, potassium 4.3, chloride 112, CO2 23, BUN 15, creatinine 1.12. Calcium 9.4 and magnesium 1.8. Nausea and vomiting have resolved. She continues to have soreness in abdomen. Patient denies any chest pain or shortness of breath. She has been urinating well. Dr. Han has recommended continuing IV fluids at 75 mL per hour and follow up on laboratory studies and nuclear parathyroid scan which is scheduled for Thursday. Anticipate discharge home tomorrow. Recommend follow up with surgeon for endoscopy but not urgent. 10/16: Patient has been afebrile, vital signs have been stable blood pressure 118/77 with a heart rate of 63 pulse oximetry 99% on room air. Patient is continuing to have nausea. She did have 2 or 3 episodes of vomiting through the night no vomiting this morning. Patient able to tolerate some food. Calcium this morning 9.5, BUN 11, creatinine 1.15. We will continue with IV hydration and will complete the nuclear parathyroid scan today. She is anxious to be able to ambulate outside today. Review of Systems Constitutional: Reports anorexia, Reports weakness, Denies chills, reports fatigue, Denies fever Eyes: denies blurred vision, denies pain Ears, nose, mouth and throat: Denies dysphagia, Denies headache, Denies sore throat, Denies vertigo Cardiovascular: Denies dyspnea on exertion, denies shortness of breath, Denies chest pain, Denies edema, Denies leg edema, Denies lightheadedness, Denies syncope Respiratory: Denies dyspnea, Denies cough, Denies cough with sputum, Denies excessive sputum, Denies hemoptysis, Denies home oxygen, Denies wheezing Gastrointestinal: Denies abdominal pain, Reports loss of appetite, reports nausea, reports vomiting, Denies diarrhea Genitourinary: Denies dysuria, Denies hematuria, Denies urgency, Denies urinary frequency Musculoskeletal:denies fractures, Denies frequent falls, Denies gait dysfunction, Denies muscle weakness, Denies myalgias Integumentary: Denies pruritus, Denies rash, Denies wounds Neurological: Denies numbness, Denies weakness Psychiatric: Denies anxiety, Denies depression Endocrine: Reports fatigue, Denies weight change Objective - Vital Signs Vital signs: Vital Signs Temp 97.9 F 10/16/18 05:00 Pulse 63 10/16/18 05:00 Resp 16 10/16/18 05:00 BP 118/77 10/16/18 05:00 Pulse Ox 99 10/16/18 05:00 Intake & Output 10/15/18 10/16/18 10/16/18 18:59 06:59 18:59 Intake Total 300 Output Total 300 Balance 0 Intake: Intake, IV Titration 300 Amount Sodium Chloride 0.9% 1, 300 000 ml @ 75 mls/hr IV . [id number] [facility] Rx#:[id number] Output: Urine 300 Stool 0 Other: Voiding Method Toilet Toilet # Voids 3 1 - Exam General Appearance: Alert, cooperative, no distress, appears stated age. Neck HEENT: Supple, no lymphadenopathy, no thyroid enlargement, no carotid bruits. Lungs: Clear to auscultation without crackles or wheezes no rhonchi, no deformity. Chest Wall: Chest wall normal expansion with deep inspiration no tenderness and no deformity was found on exam, no costochondral pain or discomfort. Heart: Regular rate and rhythm, S1, S2 normal, no murmur, rub or gallop. Back: Symmetric, no curvature, ROM normal, no CVA tenderness. Abdomen: Soft, non-tender, no rebound or rigidity, no hepatosplenomegaly. Extremities: Extremities normal, atraumatic, no cyanosis or edema. Pulses: 2+ and symmetric. Skin: Skin color, texture, tugor normal, no rashes or lesions. Neurologic: Alert oriented x3 cranial nerves II through XII intact, no motor deficit, no abnormal balance or gait - Labs CBC & Chem 7: 10/14/18 08:12 10/16/18 07:25 Labs: Abnormal Lab Results - Last 24 Hours (Table) 10/14/18 10/15/18 10/16/18 Range/Units 08:12 17:12 07:25 Chloride 111 H (98-107) mmol/L Creatinine 1.15 H (0.52-1.04) mg/dL POC Glucose (mg/dL) 112 H (75-99) mg/dL Angiotensin Convert Enz 60 H (8-52) U/L Assessment and Plan Plan: 1. Intractable nausea and vomiting and abdominal pain secondary to combination of metastatic cancer and chemotherapy, metabolic etiology. CT of the abdomen and pelvis as above consult with oncology, diet advanced, IV fluids at 75 mL per hour, Zofran and Compazine for nausea and vomiting. 2. Metastatic lung cancer. Continue albuterol nebulizer 4 times daily as needed and Symbicort twice daily. 3. Symptoms of neuropathy in the hands and legs and head buzzing, possible side effect to chemotherapy. 4. Mild acute kidney injury with chronic kidney disease stage III. Nephrology consult appreciated. Continue IV fluids. 5. Mild hypercalcemia. Nuclear parathyroid scan on Thursday. Nephrology consult appreciated. 5. GI prophylaxis. Protonix. 6. DVT prophylaxis heparin subcu every 12 hours. Discharge plan: Most likely return home tomorrow Impression and plan of care have been directed as dictated by the signing physician. Wanda Londono nurse practitioner acting as scribe for signing physician
[2018-10-16] MEDS: SYMBICORT 80-4.5 MCG INHALER INHALATION SCH ×2 (10:41→20:12)
[2018-10-16] MEDS: IPRATROPIUM 0.5 MG/2.5 ML NEBU INHALATION SCH ×4 (10:41→20:13)
[2018-10-16 12:34] LABS: Glucose,Whole Blood 90 mg/dL (75-99)
[2018-10-16] MEDS: SODIUM CHLORIDE 0.9% 1,000 ML IV SCH (12:34)
[2018-10-16] MEDS ORDERED: LACTULOSE 20 GM/30 ML CUP PO ONE (13:34)
--- NOTE | 2018-10-16 13:34 | P.PN ---
Subjective Progress Note Date: 10/16/18 Principal diagnosis: This is a 57-year-old female seen in consultation because of acute kidney injury and hypercalcemia. The calcium is deemed to be high because of hyperparathyro idism. There may be an element of volume depletion that added to it as calcium went down with hydration. Also there was slightly high Jitendra level. There is no evidence to suggest any sarcoidosis or granulomatous disease. She has chronic nausea. She is also known with lung CA and is under care of the oncologist. Supposedly the disease is in remission. Patient does complain of constipation for the last 4 days. Has minimal cough. Objective - Vital Signs Vital signs: Vital Signs Temp 97.3 F L 10/16/18 12:40 Pulse 71 10/16/18 12:40 Resp 18 10/16/18 12:40 BP 169/81 10/16/18 12:40 Pulse Ox 98 10/16/18 12:40 Intake & Output 10/15/18 10/16/18 10/16/18 18:59 06:59 18:59 Intake Total 300 Output Total 300 Balance 0 Intake: Intake, IV Titration 300 Amount Sodium Chloride 0.9% 1, 300 000 ml @ 75 mls/hr IV . [id number] [facility] Rx#:[id number] Output: Urine 300 Stool 0 Other: Voiding Method Toilet Toilet # Voids 3 1 On examination she is awake alert oriented seems to be comfortable. HEENT exam no JVP neck is supple no facial asymmetry Heart sounds are unremarkable for any murmur rub gallop Abdomen soft nontender no organomegaly status masses Extremity exam was no edema Neurologically awake alert oriented. - Labs CBC & Chem 7: 10/14/18 08:12 10/16/18 07:25 Labs: Abnormal Lab Results - Last 24 Hours (Table) 10/15/18 10/16/18 Range/Units 17:12 07:25 Chloride 111 H (98-107) mmol/L Creatinine 1.15 H (0.52-1.04) mg/dL POC Glucose (mg/dL) 112 H (75-99) mg/dL Assessment and Plan Assessment: Impression 1. Hypercalcemia secondary to hyperparathyroidism with PTH of 110.4 but the Jitendra level is slightly high as well as 60, normal being 8-52. The calcium was 10.6 o n 10/13/2018 is down to 9.5 this morning. 2. Acute kidney injury, secondary to possibly hypercalcemia. Baseline creatinine was 0.97 on 10/14/2017 a year ago . Her creatinine had peaked to 1.6 on 02/19/2018. Most recent creatinine prior to admission was was 1.2 as of 09/15/2018. She came in with a creatinine 1.07 the fluctuation might reflect high calciums 3. History of lung cancer. 4. Constipation for 4 days. Recommendation. No changes in medications. Will follow this up as an outpatient. IV fluids could be stopped and she can be washed. Will give her lactulose 30 mL and see if her constipation is relieved
--- NOTE | 2018-10-16 13:47 | NM ---
EXAMINATION TYPE: NM parathyroid DATE OF EXAM: 10/16/2018 COMPARISON: NONE HISTORY: Hypercalcemia TECHNIQUE: Following administration of 25.2 mCi Tc99m Sestamibi. Anterior projection images of the neck and ches t were obtained 15 minutes and 3 hours post injection FINDINGS: Thyroid tracer washout: Delayed images demonstrate near-complete tracer washout from the thyroid. Parathyroid uptake: None. The two-hour delayed images do not demonstrate any focal abnormal persisten t uptake in the region of the parathyroid glands to suggest parathyroid adenoma. Normal uptake: There is physiological tracer uptake in the myocardium, liver, salivary glands, and th yroid gland. IMPRESSION: Normal parathyroid imaging study. No evidence for mediastinal uptake to suggest mediastinal parathyro id adenoma
[2018-10-16 16:44] LABS: Glucose,Whole Blood 142 mg/dL (75-99)
[2018-10-16 20:35] LABS: Glucose,Whole Blood 115 mg/dL (75-99)
[2018-10-16 21:31] VITALS: RESP 16
[2018-10-17] MEDS: SODIUM CHLORIDE 0.9% 1,000 ML IV SCH ×3 (03:59→20:37)
[2018-10-17 07:20] LABS: Glucose,Whole Blood 93 mg/dL (75-99)
[2018-10-17 08:08] LABS: Albumin 3.3 g/dL (3.5-5.0); Calcium 9.5 mg/dL (8.4-10.2); Potassium 4.2 mmol/L (3.5-5.1); Total Bilirubin 0.3 mg/dL (0.2-1.3); Total Protein 5.6 g/dL (6.3-8.2)
[2018-10-17] MEDS: IPRATROPIUM 0.5 MG/2.5 ML NEBU INHALATION SCH ×4 (08:20→19:29)
[2018-10-17] MEDS: SYMBICORT 80-4.5 MCG INHALER INHALATION SCH ×2 (08:20→19:29)
[2018-10-17] MEDS: PANTOPRAZOLE 40 MG TABLET PO SCH (08:36)
[2018-10-17] MEDS: HEPARIN SODIUM,PORCINE 5,000 UNIT/ML 1 ML VIAL SQ SCH ×2 (08:36→20:38)
--- NOTE | 2018-10-17 09:52 | P.PN ---
Subjective Progress Note Date: 10/17/18 This is a 57-year-old female patient of Dr. Lee and Dr. 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 Attempted Whipple procedure was done in 2016 but was unsuccessful. History of pyloric stenosis status post Botox injection 15 years ago. The patient is currently under care of Dr. Blake for chemotherapy and her last dose was done on Thursday. She receives once monthly. Patient says she always has of nausea with a little bit of vomiting and abdominal pain. Yesterday became short of breath and her hands and legs were numb and her head was buzzing. She denies having any sick contacts, no fever or chills. She came into [facility] emergency center for evaluation. KUB of the abdomen showed no acute findings. She has been afebrile, heart rate in the 60s and 70s, blood pressure this morning 164/74, pulse ox 99% on room air. Patient has normal white count and hemoglobin and platelet count. Chloride 109 and CO2 19, BUN 27 and creatinine 1.07. Initial blood sugar 208. Lactic acid 2. As observation status for intractable vomiting and hyperglycemia. Calcium 10.6, troponin negative. Urinalysis was nitrate and leukoesterase negative, acetone negative. We will a dd consult for oncology and CAT scan of the abdomen and pelvis will be ordered. 10/14: Patient has been seen by oncology for metastatic adenocarcinoma of the lung with metastatic disease to the liver and pancreas. They have ordered an MRI of the brain and bone scan for metastatic disease to bone. MRI of the brain reveals no suspicious enhancement to suggest metastatic disease. Sinus disease. Bone scan shows no suspicious radiotracer uptake to suggest metastatic disease. Thoracic and lumbar uptake is presumably on a degenerative basis with more focal uptake at L3 and L4 at the site of anterolisthesis on the CT. CAT scan of the abdomen and pelvis showed no bowel obstruction present. Mild to moderate diffuse colonic fecal stasis redemonstrated. Chest x-ray shows no active cardiopulmonary disease. Normal heart. Right apical pleural pulmonary scarring. No change. Patient has been seen by nephrology for mild acute kidney injury secondary to intravascular volume depletion from diarrhea, hypercalcemia secondary to volume contraction, metabolic acidosis. Dr. Han recommends continuing IV fluids at 75 mL per hour, lab work has been ordered as well as a nuclear parathyroid scan. Patient has been afebrile, heart rate in the 50s and 60s, blood pressure 136/68, pulse ox 99% on room air. White count is normal at 6.9, hemoglobin 11.7, platelet count 234. Sodium 140, potassium 4.2, chloride 109, CO2 23, BUN 17 and creatinine 1.07. Blood sugars running between 70 and 89. Total bilirubin 0.6, AST 64, ALT 66, alkaline phosphatase 70. Albumin 4.2. 10/15: Patient has been afebrile, heart rate in the 60s, blood pressure 134/86, pulse ox 100% on room air. Sodium 140, potassium 4.3, chloride 112, CO2 23, BUN 15, creatinine 1.12. Calcium 9.4 and magnesium 1.8. Nausea and vomiting have resolved. She continues to have soreness in abdomen. Patient denies any chest pain or shortness of breath. She has been urinating well. Dr. Han has recommended continuing IV fluids at 75 mL per hour and follow up on laboratory studies and nuclear parathyroid scan which is scheduled for Thursday. Anticipate discharge home tomorrow. Recommend follow up with surgeon for endoscopy but not urgent. 10/16: Patient has been afebrile, vital signs have been stable blood pressure 118/77 with a heart rate of 63 pulse oximetry 99% on room air. Patient is continuing to have nausea. She did have 2 or 3 episodes of vomiting through the night no vomiting this morning. Patient able to tolerate some food. Calcium this morning 9.5, BUN 11, creatinine 1.15. We will continue with IV hydration and will complete the nuclear parathyroid scan today. She is anxious to be able to ambulate outside today. 10/17: Patient is resting comfortably and bed with complaints of vomiting 1 this morning. Still having some nausea however able to tolerate meals. Patient has been ambulatory without any difficulties. Parathyroid scan showed normal parathyroid imaging. No evidence of mediastinal uptake to suggest mediastinal parathyroid adenoma. Calcium this morning is 9.5. Abdomen is less distended. Review of Systems Constitutional: Reports anorexia, Reports weakness, Denies chills, reports fatigue, Denies fever Eyes: denies blurred vision, denies pain Ears, nose, mouth and throat: Denies dysphagia, Denies headache, Denies sore throat, Denies vertigo Cardiovascular: Denies dyspnea on exertion, denies shortness of breath, Denies chest pain, Denies edema, Denies leg edema, Denies lightheadedness, Denies syncope Respiratory: Denies dyspnea, Denies cough, Denies cough with sputum, Denies excessive sputum, Denies hemoptysis, Denies home oxygen, Denies wheezing Gastrointestinal: Denies abdominal pain, Reports loss of appetite, reports nausea, reports vomiting, Denies diarrhea Genitourinary: Denies dysuria, Denies hematuria, Denies urgency, Denies urinary frequency Musculoskeletal:denies fractures, Denies frequent falls, Denies gait dysfunction, Denies muscle weakness, Denies myalgias Integumentary: Denies pruritus, Denies rash, Denies wounds Neurological: Denies numbness, Denies weakness Psychiatric: Denies anxiety, Denies depression Endocrine: Reports fatigue, Denies weight change Objective - Vital Signs Vital signs: Vital Signs Temp 98 F 10/17/18 05:00 Pulse 79 10/17/18 05:00 Resp 16 10/17/18 05:00 BP 118/66 10/17/18 05:00 Pulse Ox 98 10/17/18 05:00 Intake & Output 10/16/18 10/17/18 10/17/18 18:59 06:59 18:59 Intake Total 1450 Output Total 300 300 Balance 1150 -300 Intake: Intake, IV Titration 900 Amount Sodium Chloride 0.9% 1, 900 000 ml @ 75 mls/hr IV . [id number] [facility] Rx#:[id number] Oral 550 Output: Urine 300 300 Stool 0 Other: Voiding Method Toilet Toilet Toilet # Voids 2 2 - Exam General Appearance: Alert, cooperative, no distress, appears stated age. Neck HEENT: Supple, no lymphadenopathy, no thyroid enlargement, no carotid bruits. Lungs: Clear to auscultation without crackles or wheezes no rhonchi, no deformity. Chest Wall: Chest wall normal expansion with deep inspiration no tenderness and no deformity was found on exam, no costochondral pain or discomfort. Heart: Regular rate and rhythm, S1, S2 normal, no murmur, rub or gallop. Back: Symmetric, no curvature, ROM normal, no CVA tenderness. Abdomen: Soft, non-tender, nondistended, no rebound or rigidity, no hepatosplenomegaly. Extremities: Extremities normal, atraumatic, no cyanosis or edema. Pulses: 2+ and symmetric. Skin: Skin color, texture, tugor normal, no rashes or lesions. Neurologic: Alert oriented x3 cranial nerves II through XII intact, no motor def icit, no abnormal balance or gait - Labs CBC & Chem 7: 10/14/18 08:12 10/17/18 07:17 Labs: Abnormal Lab Results - Last 24 Hours (Table) 10/16/18 10/16/18 10/17/18 Range/Units 16:42 20:14 07:17 Chloride 112 H (98-107) mmol/L Creatinine 1.13 H (0.52-1.04) mg/dL POC Glucose (mg/dL) 142 H 115 H (75-99) mg/dL Total Protein 5.6 L (6.3-8.2) g/dL Albumin 3.3 L (3.5-5.0) g/dL Assessment and Plan Plan: 1. Intractable nausea and vomiting and abdominal pain secondary to combination of metastatic cancer and chemotherapy, metabolic etiology. CT of the abdomen and pelvis as above consult with oncology, diet advanced, IV fluids at 75 mL per hour, Zofran and Compazine for nausea and vomiting. Discussed with patient to have parathyroid hormone redrawn in 4 weeks outpatient. 2. Metastatic lung cancer. Continue albuterol nebulizer 4 times daily as needed and Symbicort twice daily. 3. Symptoms of neuropathy in the hands and legs and head buzzing, possible side effect to chemotherapy. 4. Mild acute kidney injury with chronic kidney disease stage III. Nephrology consult appreciated. Continue IV fluids. 5. Mild hypercalcemia. Nuclear parathyroid scan as noted above. Nephrology consult appreciated. Discussed with patient to limit the amount of calcium intake orally when at home encourage patient to increase protein. 5. GI prophylaxis. Protonix. 6. DVT prophylaxis heparin subcu every 12 hours. Discharge plan: Most likely return home tomorrow Impression and plan of care have been directed as dictated by the signing physician. Wanda Londono nurse practitioner acting as scribe for signing physician
[2018-10-17 12:16] LABS: Glucose,Whole Blood 112 mg/dL (75-99)
--- NOTE | 2018-10-17 13:42 | P.PN ---
Subjective Progress Note Date: 10/17/18 Principal diagnosis: This is a 57-year-old female seen in consultation because of acute kidney injury and hypercalcemia. The calcium is deemed to be high because of hyperparathyro idism. There may be an element of volume depletion that added to it as calcium went down with hydration. Also there was slightly high Jitendra level. There is no evidence to suggest any sarcoidosis or granulomatous disease. She has chronic nausea. She is also known with lung CA and is under care of the oncologist. Supposedly the disease is in remission. She looks depressed and sees her appetite is poor and has nausea. This is unchanged. Her labs have shown significant improvement with creatinine is 1.1 and calcium is normal Objective - Vital Signs Vital signs: Vital Signs Temp 98 F 10/17/18 05:00 Pulse 88 10/17/18 12:46 Resp 16 10/17/18 05:00 BP 118/66 10/17/18 05:00 Pulse Ox 98 10/17/18 05:00 Intake & Output 10/16/18 10/17/18 10/17/18 18:59 06:59 18:59 Intake Total 1450 Output Total 300 300 Balance 1150 -300 Intake: Intake, IV Titration 900 Amount Sodium Chloride 0.9% 1, 900 000 ml @ 75 mls/hr IV . [id number] [facility] Rx#:[id number] Oral 550 Output: Urine 300 300 Stool 0 Other: Voiding Method Toilet Toilet Toilet # Voids 2 2 Exam she is somewhat cachectic. HEENT exam no JVP in neck is supple no facial asymmetry Lungs clear to auscultation fairly good air entry bilaterally Heart sounds are unremarkable for any murmur rub gallop Abdomen soft nontender Extremity exam was no edema Neurologically awake alert oriented but seems depressed - Labs CBC & Chem 7: 10/14/18 08:12 10/17/18 07:17 Labs: Abnormal Lab Results - Last 24 Hours (Table) 10/16/18 10/16/18 10/17/18 Range/Units 16:42 20:14 07:17 Chloride 112 H (98-107) mmol/L Creatinine 1.13 H (0.52-1.04) mg/dL POC Glucose (mg/dL) 142 H 115 H (75-99) mg/dL Total Protein 5.6 L (6.3-8.2) g/dL Albumin 3.3 L (3.5-5.0) g/dL 10/17/18 Range/Units 12:05 Chloride (98-107) mmol/L Creatinine (0.52-1.04) mg/dL POC Glucose (mg/dL) 112 H (75-99) mg/dL Total Protein (6.3-8.2) g/dL Albumin (3.5-5.0) g/dL Assessment and Plan Assessment: Impression 1. Hypercalcemia secondary to hyperparathyroidism with PTH of 110.4 but the Jitendra level is slightly high as well as 60, normal being 8-52. The calcium was 10.6 on 10/13/2018 is down to 9.5 yesterday 2. Acute kidney injury, secondary to possibly hypercalcemia. Baseline creatinine was 0.97 on 10/14/2017 a year ago . Her creatinine had peaked to 1.6 on 02/19/2018. Most recent creatinine prior to admission was was 1.2 as of 09/15/2018. She came in with a creatinine 1.07 the fluctuation might reflect high calciums 3. History of lung cancer. Recommendation. No changes in medications. Will follow this up as an outpatient. IV fluids could be stopped and she can bewatched
[2018-10-17 17:19] LABS: Glucose,Whole Blood 97 mg/dL (75-99)
[2018-10-17] MEDS: HYDROmorphone 0.5 MG/0.5 ML SYRINGE IVP PRN ×2 (17:31→23:12)
[2018-10-17 20:38] LABS: Glucose,Whole Blood 111 mg/dL (75-99)
[2018-10-17] MEDS: ONDANSETRON 4 MG/2 ML VIAL IVP PRN (23:13)
[2018-10-18] MEDS: HYDROmorphone 0.5 MG/0.5 ML SYRINGE IVP PRN (03:36)
[2018-10-18] MEDS: PROCHLORPERAZINE 5 MG TAB PO PRN (05:37)
[2018-10-18 06:13] VITALS: BP 130/78; TEMP 98.1
[2018-10-18 07:17] LABS: Glucose,Whole Blood 112 mg/dL (75-99)
[2018-10-18] MEDS: ALBUTEROL NEBULIZED 2.5 MG/3 ML INHALATION PRN ×2 (07:57→12:36)
[2018-10-18] MEDS: SYMBICORT 80-4.5 MCG INHALER INHALATION SCH (07:57)
[2018-10-18] MEDS: IPRATROPIUM 0.5 MG/2.5 ML NEBU INHALATION SCH ×2 (07:57→12:36)
[2018-10-18] MEDS: HEPARIN SODIUM,PORCINE 5,000 UNIT/ML 1 ML VIAL SQ SCH (08:41)
[2018-10-18] MEDS: PANTOPRAZOLE 40 MG TABLET PO SCH (08:41)
[2018-10-18] MEDS: SODIUM CHLORIDE 0.9% 1,000 ML IV SCH (08:41)
--- NOTE | 2018-10-18 10:15 | P.PN ---
Subjective Patient is seen in follow-up for acute kidney injury and hypercalcemia. Calcium level was 10.6 on admission and normalized with IV hydration. Patient presented to the hospital with vomiting. Overall her symptoms are improved. Oral intake is fair. No chest pain or shortness of breath. Good urine output. Having about 2 episodes of emesis daily. Vital signs are stable. General: The patient appeared well nourished and normally developed. HEENT: Head exam is unremarkable. Neck is without jugular venous distension. LUNGS: Lungs are clear to auscultation and percussion. Breath sounds decreased. HEART: Rate and Rhythm are regular. First and second heart sounds normal. No murmurs, rubs or gallops. ABDOMEN: Abdominal exam reveals normal bowel sounds. Non-tender and non- distended. No evidence of peritonitis. EXTREMITITES: No clubbing, cyanosis, or edema. Objective - Vital Signs Vital signs: Vital Signs Temp 98.1 F 10/18/18 05:00 Pulse 88 10/18/18 08:09 Resp 16 10/18/18 05:00 BP 130/78 10/18/18 05:00 Pulse Ox 99 10/18/18 07:57 Intake & Output 10/17/18 10/18/18 10/18/18 18:59 06:59 18:59 Intake Total 600 1080 Output Total 0 Balance 600 1080 Intake: Intake, IV Titration 600 600 Amount Sodium Chloride 0.9% 1, 600 600 000 ml @ 75 mls/hr IV . [id number] [facility] Rx#:[id number] Oral 480 Output: Stool 0 Other: Voiding Method Toilet Toilet # Voids 2 - Labs CBC & Chem 7: 10/14/18 08:12 10/17/18 07:17 Labs: Abnormal Lab Results - Last 24 Hours (Table) 10/17/18 10/17/18 10/18/18 Range/Units 12:05 20:37 07:16 POC Glucose (mg/dL) 112 H 111 H 112 H (75-99) mg/dL Assessment and Plan Plan: Assessment: 1. Mild acute kidney injury mostly prerenal secondary to intravascular volume depletion from diarrhea. Patient also received IV contrast dye on October 13. Renal function stable. No hydronephrosis noted on CT. No proteinuria on UA. 2. Diarrhea, improved. Possibly due to side effect of an antidepressant. 3. Hypercalcemia secondary to volume contraction. Improved with IV hydration. Need to rule out primary hyperparathyroidism as PTH is quite elevated at 110.4 - parathyroid scan negative for adenoma. Vitamin D level normal at 19.2. 1,2 5D3 normal. MARY level slightly elevated. 4. History of lung cancer. Oncology following. 5. Metabolic acidosis secondary to GI losses. Improved. Plan: Maintain normal saline at 75 mL an hour. Follow-up electrophoresis studies. Continue to monitor renal function and urine output.
[2018-10-18 11:21] LABS: Albumin 3.69 g/dL (3.80-4.90); Gamma Globulin 0.74 g/dL (0.70-1.50)
[2018-10-18 12:51] VITALS: PULSE 84
--- NOTE | 2018-10-18 14:36 | P.DS ---
Providers Date of admission: 10/13/18 13:35 Expected date of discharge: 10/18/18 Attending physician: Adan Callahan Consults: 10/13/18 11:13 Consult Physician Routine Consulting Provider: Cullen Nunez Consult Reason/Comments: lung ca w mets Do you want consulting provider notified?: Yes 10/14/18 08:25 Consult Physician Routine Consulting Provider: Joshua Han Consult Reason/Comments: acidosis, hypercalcemia, hyperparathyroidism Do you want consulting provider notified?: Yes Primary care physician: Ron Lee [facility] Course: This is a 57-year-old female patient of Dr. Lee and Dr. 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 Attempted Whipple procedure was done in 2016 but was unsuccessful. History of pyloric stenosis status post Botox injection 15 years ago. The patient is currently under care of Dr. Blake for chemotherapy and her last dose was done on Thursday. She receives once monthly. Patient says she always has of nausea with a little bit of vomiting and abdominal pain. Yesterday became short of breath and her hands and legs were numb and her head was buzzing. She denies having any sick contacts, no fever or chills. She came into [facility] emergency center for evaluation. KUB of the abdomen showed no acute findings. She has been afebrile, heart rate in the 60s and 70s, blood pressure this morning 164/74, pulse ox 99% on room air. Patient has normal white count and hemoglobin and platelet count. Chloride 109 and CO2 19, BUN 27 and creatinine 1.07. Initial blood sugar 208. Lactic acid 2. As observation status for intractable vomiting and hyperglycemia. Calcium 10.6, troponin negative. Urinalysis was nitrate and leukoesterase negative, acetone negative. We will add consult for oncology and CAT scan of the abdomen and pelvis will be ordered. 10/14: Patient has been seen by oncology for metastatic adenocarcinoma of the lung with metastatic disease to the liver and pancreas. They have ordered an MRI of the brain and bone scan for metastatic disease to bone. MRI of the brain reveals no suspicious enhancement to suggest metastatic disease. Sinus disease. Bone scan shows no suspicious radiotracer uptake to suggest metastatic disease. Thoracic and lumbar uptake is presumably on a degenerative basis with more focal uptake at L3 and L4 at the site of anterolisthesis on the CT. CAT scan of the abdomen and pelvis showed no bowel obstruction present. Mild to moderate diffuse colonic fecal stasis redemonstrated. Chest x-ray shows no active cardiopulmonary disease. Normal heart. Right apical pleural pulmonary scarring. No change. Patient has been seen by nephrology for mild acute kidney injury secondary to intravascular volume depletion from diarrhea, hypercalcemia secondary to volume contraction, metabolic acidosis. Dr. Han recommends continuing IV fluids at 75 mL per hour, lab work has been ordered as well as a nuclear parathyroid scan. Patient has been afebrile, heart rate in the 50s and 60s, blood pressure 136/68, pulse ox 99% on room air. White count is normal at 6.9, hemoglobin 11.7, platelet count 234. Sodium 140, potassium 4.2, chloride 109, CO2 23, BUN 17 and creatinine 1.07. Blood sugars running between 70 and 89. Total bilirubin 0.6, AST 64, ALT 66, alkaline phosphatase 70. Albumin 4.2. 10/15: Patient has been afebrile, heart rate in the 60s, blood pressure 134/86, pulse ox 100% on room air. Sodium 140, potassium 4.3, chloride 112, CO2 23, BUN 15, creatinine 1.12. Calcium 9.4 and magnesium 1.8. Nausea and vomiting have resolved. She continues to have soreness in abdomen. Patient denies any chest pain or shortness of breath. She has been urinating well. Dr. Han has recommended continuing IV fluids at 75 mL per hour and follow up on laboratory studies and nuclear parathyroid scan which is scheduled for Thursday. Anticipate discharge home tomorrow. Recommend follow up with surgeon for endoscopy but not urgent. 10/16: Patient has been afebrile, vital signs have been stable blood pressure 118/77 with a heart rate of 63 pulse oximetry 99% on room air. Patient is continuing to have nausea. She did have 2 or 3 episodes of vomiting through the night no vomiting this morning. Patient able to tolerate some food. Calcium this morning 9.5, BUN 11, creatinine 1.15. We will continue with IV hydration and will complete the nuclear parathyroid scan today. She is anxious to be able to ambulate outside today. 10/17: Patient is resting comfortably and bed with complaints of vomiting 1 this morning. Still having some nausea however able to tolerate meals. Patient has been ambulatory without any difficulties. Parathyroid scan showed normal parathyroid imaging. No evidence of mediastinal uptake to suggest mediastinal parathyroid adenoma. Calcium this morning is 9.5. Abdomen is less distended. 10/18: Patient states that she is eating and drinking but continues to have nausea. No vomiting. She has been afebrile, heart rate in 80s, blood pressure 130/78, pulse ox 99% on room air. The patient is to follow-up with oncology regarding next treatment schedule. Patient will be discharged home today in stable condition. Discharge diagnoses: 1. Intractable nausea and vomiting and abdominal pain secondary to combination of metastatic cancer and chemotherapy, metabolic etiology. 2. Metastatic lung cancer. 3. Symptoms of neuropathy in the hands and legs and head buzzing, possible side effect to chemotherapy. 4. Mild acute kidney injury with chronic kidney disease stage III. 5. Mild hypercalcemia. Discharge plan: return home Impression and plan of care have been directed as dictated by the signing physician. Lucina Murcia nurse practitioner acting as scribe for signing physician. Patient Condition at Discharge: Good Plan - Discharge Summary Discharge Rx Participant: Yes New Discharge Prescriptions: Continue Ipratropium [place] [Atrovent Hfa] 2 puff INHALATION RT-QID Omeprazole [PriLOSEC] 20 mg PO AC-BRKFST #0 fentaNYL 25MCG/HR PATCH [Duragesic 25MCG/HR] 1 patch TRANSDERM Q72H Fluticasone/Salmeterol [Advair 250-50 Diskus] 1 puff INHALATION RT-BID Albuterol Nebulized [Ventolin Nebulized] 2.5 mg INHALATION RT-QID PRN PRN Reason: Shortness Of Breath Discharge Medication List Ipratropium [place] [Atrovent Hfa] 2 puff INHALATION RT-QID 02/27/17 [History] Omeprazole [PriLOSEC] 20 mg PO AC-BRKFST #0 10/13/17 [Rx] Albuterol Nebulized [Ventolin Nebulized] 2.5 mg INHALATION RT-QID PRN 10/13/18 [History] Fluticasone/Salmeterol [Advair 250-50 Diskus] 1 puff INHALATION RT-BID 10/13/18 [History] fentaNYL 25MCG/HR PATCH [Duragesic 25MCG/HR] 1 patch TRANSDERM Q72H 10/13/18 [History] Follow up Appointment(s)/Referral(s): Ron Lee MD [Primary Care Provider] - 10/25/18 2:15 pm Abdifatah Nicole MD [STAFF PHYSICIAN] - 10/26/18 10:00 am Joshua Han DO [STAFF PHYSICIAN] - 1 Week (office will get medical records and call patient with appt date and time) Patient Instructions/Handouts: Dehydration (DC), Acute Nausea and Vomiting (DC) Discharge Disposition: HOME SELF-CARE
--- NOTE | 2018-10-18 16:42 | P.PN ---
Subjective Progress Note Date: 10/18/18 Principal diagnosis: Intractable N,V. On nivolumab for NSCLC In f/u today pt is getting ready for discharge, she is eating and drinking, nausea persists, no recent vomiting, fever, diarrhea or concerns for constipation Objective - Vital Signs Vital signs: Vital Signs Temp 98.1 F 10/18/18 05:00 Pulse 84 10/18/18 12:50 Resp 16 10/18/18 05:00 BP 130/78 10/18/18 05:00 Pulse Ox 99 10/18/18 07:57 Intake & Output 10/17/18 10/18/18 10/18/18 18:59 06:59 18:59 Intake Total 600 1080 525 Output Total 0 Balance 600 1080 525 Intake: Intake, IV Titration 600 600 525 Amount Sodium Chloride 0.9% 1, 600 600 525 000 ml @ 75 mls/hr IV . [id number] PHYLLIS Rx#:[id number] Oral 480 Output: Stool 0 Other: Voiding Method Toilet Toilet # Voids 2 - Exam WD, thin build, NAD, norocephalic, atraumatic, anicteric sclera, ambulating independently, no unilateral deficits noted, respirations even and unlabored - Labs CBC & Chem 7: 10/14/18 08:12 10/17/18 07:17 Labs: Abnormal Lab Results - Last 24 Hours (Table) 10/14/18 10/17/18 10/18/18 Range/Units 08:12 20:37 07:16 POC Glucose (mg/dL) 111 H 112 H (75-99) mg/dL Albumin (PEP) 3.69 L (3.80-4.90) g/dL Assessment and Plan (1) Intractable vomiting with nausea Status: Resolved Code(s): R11.2 - NAUSEA WITH VOMITING, UNSPECIFIED SNOMED Code(s): 588093173 (2) Lung cancer Narrative/Plan: Pt has been doing well on nivolumab with disease stability for nearly 1 year. She has f/u appt and next treatment scheduled-she will keep appts Status: Chronic Priority: Medium Code(s): C34.90 - MALIGNANT NEOPLASM OF UNSP PART OF UNSP BRONCHUS OR LUNG SNOMED Code(s): 079595661
== END 2018-10-18 14:15 | disposition home or self-care (01) | DRG 644 ==
LOC: EC 23:55 → 3NMEDONC 10-13 03:43 → OBSVTOIN 10-13 13:35 → 3NMEDONC 10-16 17:25
PROVIDERS: ADMIT Internal Medicine; ATTEND Internal Medicine
DX: E21.3 Hyperparathyroidism, unspecified (principal); N17.9 Acute kidney failure, unspecified; E87.2 Acidosis; C78.7 Secondary malignant neoplasm of liver and intrahepatic bile duct; C78.89 Secondary malignant neoplasm of other digestive organs; R11.2 Nausea with vomiting, unspecified; K86.81 Exocrine pancreatic insufficiency; N18.3 Chronic kidney disease, stage 3 (moderate); G62.0 Drug-induced polyneuropathy; R73.9 Hyperglycemia, unspecified; E86.0 Dehydration; T45.1X5A Adverse effect of antineoplastic and immunosuppressive drugs, initial encounter; I44.0 Atrioventricular block, first degree; R19.7 Diarrhea, unspecified; K59.00 Constipation, unspecified; M51.34 Other intervertebral disc degeneration, thoracic region; M51.36 Other intervertebral disc degeneration, lumbar region; Z79.891 Long term (current) use of opiate analgesic; Z79.51 Long term (current) use of inhaled steroids; Z79.899 Other long term (current) drug therapy; Z85.118 Personal history of other malignant neoplasm of bronchus and lung; Z90.411 Acquired partial absence of pancreas; Z90.49 Acquired absence of other specified parts of digestive tract; Z98.51 Tubal ligation status; Z87.891 Personal history of nicotine dependence; Z88.1 Allergy status to other antibiotic agents; Z88.5 Allergy status to narcotic agent; Z88.2 Allergy status to sulfonamides; Z88.8 Allergy status to other drugs, medicaments and biological substances; Z91.018 Allergy to other foods; Z91.048 Other nonmedicinal substance allergy status; Z80.9 Family history of malignant neoplasm, unspecified
CPT/HCPCS: 36415; 70553; 71046; 74018; 74177; 78070; 78306; 80048; 80053; 81001; 82009; 82150; 82164; 82306; 82330; 82533; 82652; 83605; 83615; 83690; 83735; 83970; 84100; 84165; 84439; 84443; 84484; 84550; 85025; 86334; 93005; 94640; 94760; 96361; 96374; 96375; 96376; 99284

== ENCOUNTER → 2018-11-30 | Outpatient (CLI) | payer MEDICARE, BC ==
--- NOTE | 2018-11-30 17:04 | MR ---
EXAMINATION TYPE: MR cervical spine wo con DATE OF EXAM: 11/30/2018 COMPARISON: None HISTORY: Cervicalgia CONTRAST: Performed utilizing 0 mL intravenous Gadavist gadolinium contrast. TECHNIQUE: Multiplanar multiecho imaging on a 3.0 Mabel magnet is performed through the cervical spin e. FINDINGS: The craniovertebral junction is normal. Vertebral body alignment is normal. C7-T1: No focal disc herniation or significant disc bulge is evident. No spinal canal stenosis or n eural foraminal stenosis is present. C6-7: There is a left paracentral small to moderate sized disc protrusion with mild anterior thecal s ac compression. This may have contact with the spinal cord. No AP spinal canal stenosis is present. N o definite cord deformity is evident. Neural foramen are patent. C5-6: No focal disc herniation or significant disc bulge is evident. No spinal canal stenosis or rebecca ral foraminal stenosis is present. C4-5: There is a large disc bulge extending from the mid right paracentral region across the center m idline to the left paracentral region and extending towards the left foramen. This is larger than the left paracentral region with moderate anterior thecal sac compression. Some cord contact is present. Cord flattening is present. Mild canal narrowing posterior to the largest portion of the disc hernia tion is present. Cord maintains normal signal through this portion course. Uncovertebral joint hypert rophy is contributing to mild foraminal narrowing C3-4: Endplate changes are present with anterior thecal sac flattening. No cord contact or spinal can al stenosis present. Neural foramen are patent.. C2-3: No focal disc herniation or significant disc bulge is evident. No spinal canal stenosis or rebecca ral foraminal stenosis is present. IMPRESSIONS: 1. Small to moderate left paracentral disc protrusion C6-7 with mild anterior thecal sac compression. 2. Large broad disc herniation effacing the left paracentral region at L4-5 level has cord contact an d some cord flattening. Correlate with neurologic symptoms. 3 mild foraminal narrowing present bilate rally C4-5 due to vertebral joint hypertrophy.
== END | disposition home or self-care (01) ==
LOC: RADMRIMAIN 11:39
PROVIDERS: ATTEND Psychiatry & Neurology Neurology
DX: M48.02 Spinal stenosis, cervical region (principal); M50.223 Other cervical disc displacement at C6-C7 level; M51.26 Other intervertebral disc displacement, lumbar region
CPT/HCPCS: 72141

== ENCOUNTER → 2019-05-27 | Outpatient (CLI) | payer MEDICARE, BC ==
--- NOTE | 2019-05-27 17:48 | CT ---
EXAMINATION TYPE: CT ChestAbdPelvis w con DATE OF EXAM: 05/27/2019 INDICATION: Lung CA COMPARISON: 10/13/2018 CT abdomen and pelvis, CT chest abdomen pelvis outside study 02/26/2017 CT DLP: 421.8 mGycm CONTRAST: Performed with Oral Contrast and with IV Contrast, patient injected with 100 mL of Isovue 300. TECHNIQUE: Axial images at 5 mm thick sections. Reconstructed images in the coronal plane. Delayed images through the kidneys. FINDINGS: CT CHEST: Portion of the thyroid visualized is normal. There may be some right apical scarring. Emphysematous blebs and bulla are present posteriorly. Minim al thickening along the right major fissure may be present emphysematous bulla at the lung base on th e right. No enlarged mediastinal or hilar adenopathy is evident. The ascending aorta diameter at the level of the main pulmonary artery is 3.1 cm. The main pulmonary artery diameter at the bifurcation is 2.[address] ABDOMEN: Liver: There is a 0.9 cm cyst at the superior right lobe liver. Spleen: Normal Pancreas: Hypodensity at the head of the pancreas remains stable in appearance. Body and tail of panc reas remain normal. Adrenal glands: The adrenal glands are normal. Gallbladder: Surgically absent Kidneys: No masses are evident. No hydronephrosis is present. No cysts are present. Delayed images were obtained through the kidneys, which remain unremarkable. Aorta: Vascular calcification is within the aorta. Inferior vena cava: Normal. CT PELVIS: Loops of bowel within the abdomen and pelvis are normal. There are loops of bowel which are incom pletely distended or lack oral contrast limiting their evaluation. Appendix: Normal as visualized. Urinary bladder: Normal. Genitourinary structures: Uterus and ovaries are not identified. Osseous structures: No suspicious lytic or sclerotic lesions. Postsurgical changes are in the lower l umbar spine. IMPRESSIONS: 1. No suspicious changes to suggest metastatic or recurrent lung cancer. 2. No suspicious changes at the head of the pancreas which has reported prior surgery.
== END | disposition home or self-care (01) ==
LOC: RADPROMAIN 10:24
PROVIDERS: ATTEND Internal Medicine Hematology & Oncology
DX: C34.11 Malignant neoplasm of upper lobe, right bronchus or lung (principal)
CPT/HCPCS: 82565; 84520; 71260; 74177; J1642; Q9967

== ENCOUNTER → 2020-01-12 | Outpatient (CLI) | payer MEDICARE, BC ==
--- NOTE | 2020-01-12 14:23 | CT ---
EXAMINATION TYPE: CT ChestAbdPelvis w con DATE OF EXAM: 01/12/2020 COMPARISON: 05/27/2019, 10/13/2018, 08/12/2018 HISTORY: 59-year-old female follow up lung cancer TECHNIQUE: Contiguous axial scanning of the chest, abdomen, and pelvis performed with IV Contrast, pa tient injected with 100 mL of Isovue 300. Delayed images through the kidneys were obtained. Coronal/s agittal reconstructions performed. CT DLP: 462.8 mGycm Automated exposure control for dose reduction was used. FINDINGS: CHEST: Heart normal size without pericardial effusion. Aorta normal caliber with conventional arch vessel branching anatomy. Right anterior chest wall injection port with catheter tip in the lower SVC. No thoracic lymphadenopathy by CT size criteria. Postsurgical changes at the right hilum likely reflecting prior lobectomy. Biapical pleural parenchymal scarring, right greater than left is unchanged. Underlying mild emphysem atous change. No new consolidation or pleural effusion. No suspicious pulmonary nodules are seen. ABDOMEN: Hepatic cysts measuring up to 9 mm are unchanged. Portal venous system is patent. No biliary ductal d ilatation. Cholecystectomy clips. Adrenal glands, kidneys, spleen, and pancreas show no gross abnormal body. No dilated small bowel, free fluid, or free air. No mesenteric or retroperitoneal lymphadenopathy wendi ntified. Moderate stool in the right side of the abdomen. Short segment moderate circumferential wall thickeni ng mid ascending aorta, refer to coronal image 37. Normal appendix. Moderate arthroscopic calcifications abdominal aorta and iliac arteries. PELVIS: Bladder is urine distended. Right-sided pelvic phleboliths. No abnormal fluid collection the pelvis o r pelvic lymphadenopathy. BONES: Mild degenerative change at the right hip. Postsurgical change of L4-L5 posterior fusion and laminect wesley. Grade 1, nearly grade 2 anterolisthesis above the fusion at L3-L4. Likely mild spinal canal sten osis here. No osseous destructive process seen. IMPRESSION: 1. COPD AND STABLE POSTOPERATIVE CHANGES AT THE RIGHT HILUM. NO DISEASE RECURRENCE IS IDENTIFIED. 2. SHORT SEGMENT MODERATE CIRCUMFERENTIAL WALL THICKENING MID ASCENDING COLON COULD BE SECONDARY TO N ONDISTENTION OR COLITIS. DIRECT VISUALIZATION RECOMMENDED TO EXCLUDE THE POSSIBILITY OF NEOPLASM IF R OUTINE SCREENING IS NOT BEING PERFORMED. 3. STABLE BIAPICAL PLEURAL-PARENCHYMAL SCARRING, RIGHT GREATER THAN LEFT.
== END | disposition home or self-care (01) ==
LOC: RADCTMAIN 10:14
PROVIDERS: ATTEND Internal Medicine Hematology & Oncology
DX: J44.9 Chronic obstructive pulmonary disease, unspecified (principal); C34.11 Malignant neoplasm of upper lobe, right bronchus or lung; R91.8 Other nonspecific abnormal finding of lung field; Z88.2 Allergy status to sulfonamides; Z88.5 Allergy status to narcotic agent; Z91.048 Other nonmedicinal substance allergy status
CPT/HCPCS: 82565; 84520; 71260; 74177; 36415; Q9967

== ENCOUNTER → 2020-07-09 | Outpatient (CLI) | payer MEDICARE, BC ==
--- NOTE | 2020-07-09 15:14 | CT ---
EXAMINATION TYPE: CT ChestAbdPelvis w con DATE OF EXAM: 07/09/2020 COMPARISON: CT January 12, 2020 and older CTs HISTORY: Lung cancer. Suspect mets. CT DLP: 494.4 mGycm. Automated Exposure Control for Dose Reduction was Utilized. CONTRAST: CT scan of the thorax, abdomen and pelvis is performed with oral and with IV Contrast, patient inject ed with 100 mL of Isovue M300. FINDINGS: LUNGS: Moderate right greater than left posterior pleural/parenchymal scarring with medial and surgic al sutures is redemonstrated. Mild to moderate anterior right basilar linear scarring redemonstrated with bleb formation. No new nodules or masses. There is no pleural effusion or pneumothorax seen. Th e tracheobronchial tree is patent. MEDIASTINUM: There are no new greater than 1 cm hilar or mediastinal lymph nodes. Surgical clips rig ht hilar region redemonstrated. No cardiomegaly or pericardial effusion is seen. OTHER: Stable right internal jugular Mediport catheter. LIVER/GB: Cholecystectomy clips are redemonstrated. Occasional scattered thin-walled small cysts thro ughout the liver again seen. PANCREAS: No significant abnormality is seen. SPLEEN: Stable surgical clip or calcification anterior lateral aspect of spleen Axial image 63. ADRENALS: No significant abnormality is seen. KIDNEYS: Symmetric cortical medullary uptake and excretion without concerning renal mass or hydroneph rosis seen bilaterally. BOWEL: Oral contrast does not reach distal ileal ileum level making evaluation distal bowel suboptima l. No suspicious small or large bowel dilatation. Patient has very little intra-abdominal fat. GENITAL ORGANS: Uterus surgically absent or markedly atrophic. Scattered right-sided pelvic phlebolit hs redemonstrated. LYMPH NODES: No new greater than 1cm abdominal or pelvic lymph nodes are appreciated. OSSEOUS STRUCTURES: Postsurgical change L4-L5 level bilaterally is redemonstrated. Stable grade 1 ant erolisthesis L3 on L4. Multilevel spurring in the thoracic spine. OTHER: Moderate mixed plaque of the aorta extends into branch vessels. IMPRESSION: Stable posttreatment changes. No new suspicious mass or adenopathy to suggest neoplastic recurrence. No significant change from most recent CT.
== END | disposition home or self-care (01) ==
LOC: RADCTMAIN 12:12
PROVIDERS: ATTEND Internal Medicine Hematology & Oncology
DX: C34.11 Malignant neoplasm of upper lobe, right bronchus or lung (principal); Z88.1 Allergy status to other antibiotic agents; Z88.8 Allergy status to other drugs, medicaments and biological substances; Z91.048 Other nonmedicinal substance allergy status; Z88.2 Allergy status to sulfonamides
CPT/HCPCS: 82565; 84520; 71260; 74177; 36415; Q9967 ×2

== ENCOUNTER 2020-10-02 09:28 | Day surgery (SDC) | payer MEDICARE, BC ==
[2020-09-28 13:13] VITALS: BMI 21.2
[~2020-10-02 09:28] MED LIST: LACTATED RINGERS 1,000 ML IV SCH; LIDOCAINE 1% (10MG/ML) FOR IV START INTRADERMA PRN
[2020-10-02 09:49] VITALS: TEMP 97.5
[2020-10-02] MEDS ORDERED: LIDOCAINE 1% INJ 10MG/ML (20 ML MDV) ONE (10:10)
[2020-10-02] MEDS ORDERED: PROPOFOL 10 MG/ML 20 ML VIAL IV ONE (10:10)
--- NOTE | 2020-10-02 10:17 | P.GSHP ---
History of Present Illness H&P Date: 10/02/20 Chief Complaint: Epigastric pain, change in bowel habits, abnormal CAT scan Patient with history of metastatic lung cancer. Lately has had some epigastric pain and worsening constipation. No active disease on recent studies. She has had CAT scan showing wall thickening involving the ascending colon and thickening of the gastric wall. No rectal bleeding or melena. Constipation treated with MiraLAX. Past Medical History Past Medical History: Cancer, COPD, GERD/Reflux, Osteoarthritis (OA) Additional Past Medical History / Comment(s): CANCER LUNG METASTATIC TO STOMACH AND BLOOD VESSELS close to THE PANCREAS; COMPLETED 5/6 CYCLES OF CHEMO, last dose 2017. no radiation, THICKENING IN BOWEL AND STOMACH History of Any Multi-Drug Resistant Organisms: None Reported Past Surgical History: Adenoidectomy, Cholecystectomy, Hysterectomy, Orthopedic Surgery, Tonsillectomy, Tubal Ligation Additional Past Surgical History / Comment(s): FEEDING TUBE- G-TUBE, PORT A CATH, WHIPPLE SX- UNSUSCESSFUL; carpal tunnel sx Past Anesthesia/Blood Transfusion Reactions: No Reported Reaction Past Psychological History: No Psychological Hx Reported Smoking Status: Former smoker Past Alcohol Use History: None Reported Additional Past Alcohol Use History / Comment(s): QUIT SMOING 2008. She denies any illicit drug use or alcohol use. Past Drug Use History: None Reported - Past Family History Mother Family Medical History: No Reported History Additional Family Medical History / Comment(s): 3 uncles of cancer but does not know what kind. No history of cancer in mother or father. Patient is has 2 kids with no significant medical problems Medications and Allergies Home Medications Medication Instructions Recorded Confirmed Type Ipratropium [place] [Atrovent Hfa] 2 puff INHALATION RT-QID 02/27/17 09/28/20 History Albuterol Nebulized [Ventolin 2.5 mg INHALATION RT-QID PRN 10/13/18 09/28/20 History Nebulized] Fluticasone/Salmeterol [Advair 1 puff INHALATION RT-BID 10/13/18 09/28/20 History 250-50 Diskus] Azelastine HCl [Astepro] 137 mcg NASAL BID 09/28/20 09/28/20 History Cetirizine HCl [Zyrtec] 10 mg PO DAILY 09/28/20 09/28/20 History Fluticasone Nasal [place] [Flonase 2 spr EA NOSTRIL DAILY 09/28/20 09/28/20 Histor y Nasal [place]] Folic Acid 1 mg PO DAILY 09/28/20 09/28/20 History Hydrocortisone Cream 1 applic TOPICAL DAILY PRN 09/28/20 09/28/20 History [Hydrocortisone 1% Cream] LORazepam [Ativan] 1 mg PO TID 09/28/20 09/28/20 History Ondansetron [Zofran] 4 mg PO Q8HR PRN 09/28/20 09/28/20 History oxyCODONE HCL/ACETAMINOPHEN 2 tab PO Q6H 09/28/20 09/28/20 History [oxyCODONE HCL/ACETAMINOPHEN 5-325] Allergies Allergy/AdvReac Type Severity Reaction Status Date / Time cinnamon Allergy Anaphylaxis Verified 09/28/20 13:04 iron Allergy Rash/Hives Verified 09/28/20 13:04 levofloxacin [From Levaquin] Allergy CAUSED RT Verified 09/28/20 13:21 ELBOW TENDONITIS morphine Allergy Rash/Hives Verified 09/28/20 13:04 omeprazole [From Prilosec] Allergy TONGUE Verified 09/28/20 13:21 SWELLING Sulfa (Sulfonamide Allergy Rash/Hives Verified 09/28/20 13:04 Antibiotics) venlafaxine Allergy Wheezing Verified 09/28/20 13:04 sucralfate [From Carafate] AdvReac ABD PAIN, Verified 09/28/20 13:21 NAUSEA Surgical - Exam Vital Signs Temp Pulse Resp BP Pulse Ox 97.5 F L 73 20 134/66 96 10/02/20 09:47 10/02/20 09:47 10/02/20 09:47 10/02/20 09:47 10/02/20 09:47 Physical exam: General: Well-developed, well-nourished HEENT: Normocephalic, sclerae nonicteric Abdomen: Nontender, nondistended Extremities: No edema Neuro: Alert and oriented Assessment and Plan (1) Change in bowel habits Narrative/Plan: Proceed with upper and lower endoscopy Current Visit: Yes Status: Acute Code(s): R19.4 - CHANGE IN BOWEL HABIT SNOMED Code(s): 944516618
--- NOTE | 2020-10-02 10:40 | P.PCN ---
Date of Procedure: 10/02/20 Procedure(s) Performed: PREOPERATIVE DIAGNOSIS: GERD, epigastric pain, change in bowel habits POSTOPERATIVE DIAGNOSIS: Thickened proximal gastric fold, gastritis, normal colon PROCEDURE: 1. EGD with biopsy 2. Colonoscopy ANESTHESIA: MAC SURGEON: Anthony Browning M.D. SPECIMENS: Antrum, cardia thickened fold ENDOSCOPIC PROCEDURE: The patient was on the endoscopy table in the left decubitus position. The Olympus gastroscope was inserted into the oropharynx and passed under direct visualization to the region of the third portion of the duodenum. From that point the scope was slowly withdrawn inspecting all surfaces carefully. There were no neoplastic inflammatory or polypoid lesions throughout the duodenum. The pylorus was widely patent. The stomach was carefully inspected. There was mild gastritis in the antrum. A biopsy of the antrum took place to rule out H. pylori. Retroflexion revealed a unusually thickened gastric fold in the cardia. This was friable when cold biopsies were taken. No ulcers were seen there. There was no visible hiatal hernia. The esophagus was then carefully examined. There were no neoplastic inflammatory or polypoid lesions throughout the visualized esophagus. The patient was kept on the endoscopy table in the left decubitus position. The Olympus colonoscope was inserted into the anus and passed under direct visualization to the base of the cecum. The appendiceal orifice was visualized. From that point the scope was slowly withdrawn inspecting all surfaces carefully. There were no neoplastic inflammatory or polypoid lesions throughout the cecum, ascending, transverse, descending, sigmoid and rectum. There was no visible diverticulosis noted. Digital rectal examination was normal. The patient was taken to the recovery room in stable condition per anesthesia guidelines. RECOMMENDATIONS: Antiacid therapy. Await biopsy results. Continue MiraLAX for constipation.
[2020-10-02 10:45] VITALS: RESP 16
[2020-10-02 11:03] VITALS: BP 104/61; PULSE 67
== END 2020-10-02 11:43 | disposition home or self-care (01) ==
LOC: ORWHC2ENDO 09:28
PROVIDERS: ATTEND Surgery
DX: K31.9 Disease of stomach and duodenum, unspecified (principal); K31.7 Polyp of stomach and duodenum; K29.70 Gastritis, unspecified, without bleeding; K59.00 Constipation, unspecified; D64.9 Anemia, unspecified; J44.9 Chronic obstructive pulmonary disease, unspecified; K21.9 Gastro-esophageal reflux disease without esophagitis; I50.9 Heart failure, unspecified; Z85.118 Personal history of other malignant neoplasm of bronchus and lung; Z90.710 Acquired absence of both cervix and uterus; Z90.49 Acquired absence of other specified parts of digestive tract; Z90.2 Acquired absence of lung [part of]; Z95.828 Presence of other vascular implants and grafts; M19.90 Unspecified osteoarthritis, unspecified site; Z92.21 Personal history of antineoplastic chemotherapy; Z90.89 Acquired absence of other organs; Z87.891 Personal history of nicotine dependence; Z80.9 Family history of malignant neoplasm, unspecified; Z79.891 Long term (current) use of opiate analgesic; Z79.51 Long term (current) use of inhaled steroids; Z79.899 Other long term (current) drug therapy; Z88.3 Allergy status to other anti-infective agents; Z88.5 Allergy status to narcotic agent; Z88.2 Allergy status to sulfonamides; Z88.9 Allergy status to unspecified drugs, medicaments and biological substances; Z91.09 Other allergy status, other than to drugs and biological substances; Z91.018 Allergy to other foods
CPT/HCPCS: 88305; 45378; 43239; J2001; J2704

== ENCOUNTER → 2020-10-05 | Outpatient (CLI) | payer MEDICARE, BC ==
--- NOTE | 2020-10-05 16:07 | CT ---
EXAMINATION TYPE: CT ChestAbdPelvis w con DATE OF EXAM: 10/05/2020 COMPARISON: Prior CT July 09, 2020 and older studies. HISTORY: Follow up for lung cancer and abdominal pain. CT DLP: 476.4 mGycm. Automated Exposure Control for Dose Reduction was Utilized. CONTRAST: CT scan of the thorax, abdomen and pelvis is performed with oral and with IV Contrast, patient inject ed with 100ml mL of Isovue 300. FINDINGS: LUNGS: Mild/moderate underlying emphysematous change redemonstrated with apical pleural/parenchymal s carring greater in the right lung apex where surgical sutures again seen. Mild to moderate anterior r ight basilar linear scarring redemonstrated with bleb formation. No new nodules or masses. There is n o pleural effusion or pneumothorax seen. The tracheobronchial tree is patent. MEDIASTINUM: There are no new greater than 1 cm hilar or mediastinal lymph nodes. Surgical clips rig ht hilar region redemonstrated. No cardiomegaly or pericardial effusion is seen. OTHER: Stable right internal jugular Mediport catheter with tip terminating in SVC. LIVER/GB: Cholecystectomy clips are redemonstrated. Occasional scattered thin-walled small cysts thro ughout the liver again seen in the hepatic dome. PANCREAS: No significant abnormality is seen. SPLEEN: Stable surgical clip or calcification anterior lateral aspect of spleen Axial image 62. ADRENALS: No significant abnormality is seen. KIDNEYS: Symmetric cortical medullary uptake and excretion without concerning renal mass or hydroneph rosis seen bilaterally. BOWEL: Oral contrast does not reach distal ileal ileum level making evaluation distal bowel suboptima l. Patient has very little intra-abdominal fat also making evaluation suboptimal. No new suspicious s mall or large bowel dilatation. [id number] fecal prominence in the right and transverse colon o n current study. GENITAL ORGANS: Uterus surgically absent . Scattered right-sided pelvic phleboliths redemonstrated. LYMPH NODES: No new greater than 1cm abdominal or pelvic lymph nodes are appreciated. OSSEOUS STRUCTURES: Postsurgical change L4-L5 level bilaterally is redemonstrated. Stable grade 1 ant erolisthesis L3 on L4. Multilevel spurring and disc space narrowing centered in the mid thoracic spin e. OTHER: Moderate mixed plaque of the aorta extends into branch vessels similar to prior. IMPRESSION: Stable posttreatment changes. No new suspicious mass or adenopathy to suggest neoplastic recurrence. No significant change from most recent CT.
== END | disposition home or self-care (01) ==
LOC: RADPROMAIN 13:52
PROVIDERS: ATTEND Internal Medicine Hematology & Oncology
DX: C34.11 Malignant neoplasm of upper lobe, right bronchus or lung (principal); R10.84 Generalized abdominal pain; Z88.2 Allergy status to sulfonamides; Z88.5 Allergy status to narcotic agent; Z88.8 Allergy status to other drugs, medicaments and biological substances; Z91.048 Other nonmedicinal substance allergy status; Z98.890 Other specified postprocedural states
CPT/HCPCS: 82565; 84520; 71260; 74177; 36415; J1642; Q9967

== ENCOUNTER → 2020-11-28 | Outpatient (CLI) | payer MEDICARE, BC ==
[2020-11-28 22:53] LABS: Basophils % (A) 1.2 %; Eosinophils # (A) 0.39 X 10*3/uL (0.04-0.35); Eosinophils % (A) 4.6 %; HCT 33.9 % (37.2-46.3); Lymphocytes # (A) 2.45 X 10*3/uL (0.90-5.00); Lymphocytes % (A) 28.8 %; MCH 32.4 pg (27.0-32.0); MCHC 32.4 g/dL (32.0-37.0); MCV 99.7 fL (80.0-97.0); Mean Platelet Volume 9.6 fL (9.5-12.2); Monocytes # (A) 0.57 X 10*3/uL (0.20-1.00); Monocytes % (A) 6.7 %; Neutrophils # (A) 4.99 X 10*3/uL (1.80-7.70); Neutrophils % (A) 58.5 %; Platelet Count 359 X 10*3/uL (140-440); RDW 14.6 % (11.5-14.5); WBC 8.52 X 10*3/uL (4.50-10.00)
[2020-11-29 10:43] LABS: African American GFR (CKD) 70.9 (60.0-200.0); Albumin 4.2 g/dL (3.80-4.90); Anion Gap 9.8 mmol/L (4.00-12.00); Calcium 9.7 mg/dL (8.7-10.3); Carbon Dioxide 23.2 mmol/L (21.6-31.8); Globulin 2.1 g/dL (1.6-3.3); Non-African American GFR(CKD) 61.2 (60.0-200.0); Potassium 4.5 mmol/L (3.5-5.5); Total Bilirubin 0.4 mg/dL (0.2-1.2); Total Protein 6.3 g/dL (6.2-8.2)
== END | disposition home or self-care (01) ==
LOC: LABWHC1 14:01
PROVIDERS: ATTEND Family Medicine
DX: E55.9 Vitamin D deficiency, unspecified (principal); B94.8 Sequelae of other specified infectious and parasitic diseases; R06.00 Dyspnea, unspecified
CPT/HCPCS: 36415; 80053; 82306; 85025

== ENCOUNTER → 2021-01-10 | Outpatient (CLI) | payer MEDICARE, BC ==
--- NOTE | 2021-01-10 17:05 | CT ---
EXAMINATION TYPE: CT abdomen pelvis w con DATE OF EXAM: 01/10/2021 COMPARISON: CT 10/05/2020 HISTORY: Lung cancer and abdominal pain, stomach cancer. Nausea and vomiting with 10lb weight loss x [address] DLP: 344.4 mGycm Automated exposure control for dose reduction was used. TECHNIQUE: Helical acquisition of images from the lung bases through the pelvis have been completed. CONTRAST: Performed with Oral Contrast and with IV Contrast, patient injected with 100 mL of Isovue M300. FINDINGS: Along the level of the lesser curvature of the stomach there is abnormal thickening, abnorm al soft tissue present measuring approximately 7 cm in AP dimension by 4.3 cm in transverse dimension by 4.6 cm in cephalad to caudal dimension which is increased in size compared to previous exam when it measured 5.1 in AP dimension by 3.3 cm in transverse dimension by approximately 4.1 cm in cephalad to caudal dimension consistent with patient's history of gastric cancer. Multiple surgical clips are present along the celiac axis. There are some nodes present along the undersurface of the left hemid iaphragm LUNG BASES: No significant interval change is appreciated, emphysematous changes present. AORTA: No significant abnormality is appreciated. LIVER/GB: No significant interval change is appreciated, patient is post cholecystectomy, there are c ystic foci scattered within the liver. PANCREAS: No significant abnormality is seen. SPLEEN: No significant table change is seen, metallic density seen anterior to the lateral margin of the spleen. ADRENALS: No significant abnormality is seen. KIDNEYS: No significant abnormality is seen. REPRODUCTIVE ORGANS: Not seen BOWEL: No significant abnormality is seen. FREE AIR: No Free Air visible. ASCITES: None visible. PELVIC ADENOPATHY: None visualized. RETROPERITONEAL ADENOPATHY: No Retroperitoneal Adenopathy visible. URINARY BLADDER: Contracted. OSSEOUS STRUCTURES: Postop changes again seen with associated artifact. IMPRESSION: PROGRESSION OF PATIENT'S GASTRIC MASS
== END | disposition home or self-care (01) ==
LOC: RADPROMAIN 11:56
PROVIDERS: ATTEND Internal Medicine Hematology & Oncology
DX: C34.11 Malignant neoplasm of upper lobe, right bronchus or lung (principal); C16.9 Malignant neoplasm of stomach, unspecified; R10.9 Unspecified abdominal pain; R11.2 Nausea with vomiting, unspecified
CPT/HCPCS: 82565; 84520; 74177; J1642; Q9967 ×2

== ENCOUNTER → 2021-01-18 | Outpatient (CLI) | payer MEDICARE, BC ==
--- NOTE | 2021-01-22 12:08 | PE ---
"EXAMINATION TYPE: PET CT fusion skull to thigh DATE OF EXAM: 01/18/2021 COMPARISON: 01/10/2021 Prior PET/CT: None at this location HISTORY: Lung cancer TECHNIQUE: Following the intravenous administration of 10.03 mCi of F-18 FDG, whole body images are performed from the skull base to the midthigh. Images are reviewed on the computer in the coronal, a xial, and sagittal planes. Reconstructed rotating images are created on independent workstation and reviewed on the computer. A localization and attenuation correction CT is performed in conjunction with the PET scan. DLP: 291.25 mGycm SCAN: Initial Scan Blood glucose: 75 mg/dL Average Mediastinum SUV: 1.21 Average Liver SUV: 1.6 FINDINGS: NECK: No abnormal uptake THORAX: Normal uptake ABDOMEN: There is abnormal uptake which is focal within the medial gastric cardia. This has an SUV is 9.49 suspicious for gastric neoplasm. No suspicious adenopathy is identified. PELVIS: No abnormal uptake OSSEOUS STRUCTURES: No suspicious uptake LOCALIZATION CT: Suspected gastric mass measures 4.3 x 5.9 cm. There is extension around the gastroes ophageal region likely present extending to the gastric cardia. IMPRESSION: 1. Intense uptake within the region of the gastric cardia, along the medial proximal stomach lesser c urvature suggestive for neoplasm. This may be a new primary. Direct visualization recommended. 2. Additional suspicious areas to suggest recurrent or possible metastatic lung cancer not identified . A Yellow level critical message alert has been initiated for Abdifatah Nicole MD via the [employer] 36 0 | Critical Results System on 01/22/2021 12:03 PM. This message alert has been sent to Abdifatah Nicole MD via the preferences provided by the clinician for the receipt of [facility] Critical [facility]. [facility] [id number]."
== END | disposition home or self-care (01) ==
LOC: RADPETMAIN 17:16
PROVIDERS: ATTEND Internal Medicine Hematology & Oncology
DX: C34.11 Malignant neoplasm of upper lobe, right bronchus or lung (principal)
CPT/HCPCS: 78815; A9552

== ENCOUNTER → 2021-05-03 | Outpatient (CLI) | payer MEDICARE, BC ==
--- NOTE | 2021-05-03 08:07 | MR ---
EXAMINATION TYPE: MR brain wo/w con DATE OF EXAM: 05/03/2021 COMPARISON: MRI brain October 14, 2018 HISTORY: Lung ca, dizziness TECHNIQUE: Multiplanar, multisequence images of the brain and brainstem is performed without and with IV contras t, utilizing 5 mL intravenous Gadavist . FINDINGS: Diffusion weighted images demonstrate no evidence of a recent infarct or other diffusion ab normality. There is no extra-axial fluid collection or significant white matter signal abnormality. The ventricular system and cisternal spaces are normal in size and appearance. The brain volume is age appropriate. Midline structures demonstrate normal morphology. The craniocervical junction appears within normal limits. Post contrast images demonstrate no abnormal enhancement. The dural venous sinuses appear pa tent. The visualized sinuses are now grossly clear. The globes are grossly intact. IMPRESSION: No abnormal enhancing masses to suggest metastatic disease. Unremarkable study.
== END | disposition home or self-care (01) ==
LOC: RADMRIMAIN 05:58
PROVIDERS: ATTEND Internal Medicine Hematology & Oncology
DX: C34.11 Malignant neoplasm of upper lobe, right bronchus or lung (principal); R42 Dizziness and giddiness
CPT/HCPCS: 70553; A9585

== ENCOUNTER → 2021-05-30 | Outpatient (CLI) | payer MEDICARE, BC | END | disposition home or self-care (01) | LOC: LABWHC1 11:19 | PROVIDERS: ATTEND Registered Nurse Oncology | DX: C34.11 Malignant neoplasm of upper lobe, right bronchus or lung (principal); I10 Essential (primary) hypertension; I44.0 Atrioventricular block, first degree; J44.1 Chronic obstructive pulmonary disease with (acute) exacerbation; R94.31 Abnormal electrocardiogram [ECG] [EKG] | CPT/HCPCS: 36415; 93005 ==

== ENCOUNTER → 2021-07-11 | Outpatient (CLI) | payer MEDICARE, BC ==
--- NOTE | 2021-07-12 07:11 | CT ---
EXAMINATION TYPE: CT ChestAbdPelvis w con DATE OF EXAM: 07/11/2021 COMPARISON: Most recent PET CT January 18, 2021 and older studies HISTORY: History of lung cancer 2009 and [address] DLP: 124.80 mGycm. Automated Exposure Control for Dose Reduction was Utilized. CONTRAST: CT scan of the thorax, abdomen and pelvis is performed with oral and with IV Contrast, patient injec simin with 100 mL of Isovue 300. FINDINGS: LUNGS: Since most recent CT February 04, 2021 there is new 1.7 x 1.3 cm spiculated nodular scarlike opaci ty in the left lung base axial image 52. Background mild to moderate underlying emphysematous change with mild bibasilar scarring. More prominent right apical scarring redemonstrated and stable. MEDIASTINUM: There are no greater than 1 cm hilar or mediastinal lymph nodes. No cardiomegaly or pe ricardial effusion is seen. LIVER/GB: No significant abnormality is appreciated. PANCREAS: No significant abnormality is seen. SPLEEN: No significant abnormality is seen. ADRENALS: No significant abnormality is seen. KIDNEYS: No significant abnormality is seen. BOWEL: Oral contrast does not reach colonic level. No suspicious small or large bowel dilatation. Nor mal-appearing appendix. Persistent thickening of the proximal stomach just below diaphragm seen best near axial image 54. GENITAL ORGANS: Uterus surgically absent. LYMPH NODES: No greater than 1cm abdominal or pelvic lymph nodes are appreciated. OSSEOUS STRUCTURES: Postsurgical change lower lumbar spine. Grade 1 anterolisthesis L3 on L4. OTHER: No significant additional abnormality is seen. IMPRESSION: Improved but persistent thickening of the proximal stomach could reflect residual neoplas m. New left basilar scarring and spiculated nodularity favors posttreatment change. Neoplasm developm ent much less likely but not entirely excluded.
== END | disposition home or self-care (01) ==
LOC: RADPROMAIN 13:47
PROVIDERS: ATTEND Internal Medicine Hematology & Oncology
DX: R91.8 Other nonspecific abnormal finding of lung field (principal); K31.89 Other diseases of stomach and duodenum; Z85.118 Personal history of other malignant neoplasm of bronchus and lung; Z85.028 Personal history of other malignant neoplasm of stomach
CPT/HCPCS: 82565; 84520; 71260; 74177; 36415; J1642; Q9967

== ENCOUNTER → 2021-08-05 | Outpatient (CLI) | payer MEDICARE, BC ==
[2021-08-05 20:32] LABS: African American GFR (CKD) 73.7 (60.0-200.0); Anion Gap 10.9 mmol/L (10.00-18.00); BUN/Creat Ratio 18.89 Ratio (12.00-20.00); Blood Urea Nitrogen 18.3 mg/dL (9.0-27.0); Calcium 9.3 mg/dL (8.7-10.3); Non-African American GFR(CKD) 63.6 (60.0-200.0); Potassium 4.4 mmol/L (3.5-5.5); T4, Free (Free Thyroxine) 1.34 ng/dL (0.800-1.800)
[2021-08-05 21:05] LABS: HCT 20.4 % (37.2-46.3); HGB 6.6 g/dL (12.0-15.0); MCH 37.5 pg (27.0-32.0); MCHC 32.4 g/dL (32.0-37.0); MCV 115.9 fL (80.0-97.0); Mean Platelet Volume 11.2 fL (9.5-12.2); Platelet Count 61 X 10*3/uL (140-440); RBC 1.76 X 10*6/uL (4.10-5.20); RDW 19.4 % (11.5-14.5); WBC 2.87 X 10*3/uL (4.50-10.00)
[2021-08-05 21:06] LABS: Macrocytosis (M) 2+
== END | disposition home or self-care (01) ==
LOC: LABWHC1 11:20
PROVIDERS: ATTEND Internal Medicine Interventional Cardiology
DX: D64.9 Anemia, unspecified (principal); R42 Dizziness and giddiness
CPT/HCPCS: 36415; 80048; 84439; 84443; 85027

== ENCOUNTER → 2021-09-27 | Outpatient (CLI) | payer MEDICARE, BC ==
--- NOTE | 2021-10-01 11:07 | PE ---
Nuclear medicine PET/CT HISTORY: Lung carcinoma, subsequent, C 34.11 Patient received 10.7 mCi F-18 FDG intravenously and delayed scanning was performed from the skull ba se to the mid thighs. A localization and attenuation correction CT scan was performed. Correlation to prior nuclear medicine PET/CT 01/18/2021 Average mediastinal uptake SUV 1.3, average liver uptake SUV 1.8 Chest and neck: There are multiple areas of brown fat uptake. There is no evident supraclavicular or cervical adenopathy. No mediastinal, axillary, or hilar adenop athy, no suspicious uptake. Postop changes are again noted. No pleural or pericardial effusion. Apica l emphysematous changes and scarring again seen. The lung bases there is ill-defined abnormal attenua tion along the left hemidiaphragm is irregular margins but SUV only 1.4, there is some abnormal uptak e, some basilar atelectatic changes or scarring suspected, there is some interval development of nodu larity however at the posterior costophrenic angles, medially at the right lower lobe level without a ssociated uptake. Additional scattered areas of parenchymal density, uptake in the range of only appr oximately 1. By 1.7 however ABDOMEN: No evident adrenal mass or retroperitoneal adenopathy. No liver mass. Patient is post cholec ystectomy. Probable hepatic cyst is again seen, no suspicious uptake. There is no free fluid. Uterus and adnexal structures are not seen. Osseous structures show acromioclavicular joint on the right with some uptake likely arthropathy. Pos top changes are noted in the lumbar spine. Uptake along the posterior left 10th rib shows SUV 2.5, po sterior ilium on the left shows SUV only 1.8 IMPRESSION: Indeterminate areas of parenchymal increased attenuation at the lung bases, nodularity wi thout significant uptake noted, follow-up is recommended. Difficult to exclude bony metastatic diseas e, MRI pelvis could be performed as indicated with attention to the left ilium.
== END | disposition home or self-care (01) ==
LOC: RADPETMAIN 10:07
PROVIDERS: ATTEND Internal Medicine Hematology & Oncology
DX: C34.11 Malignant neoplasm of upper lobe, right bronchus or lung (principal)
CPT/HCPCS: 78815; A9552

== ENCOUNTER → 2022-02-07 | Outpatient (CLI) | payer MEDICARE, BC ==
--- NOTE | 2022-02-11 11:21 | PE ---
Nuclear medicine PET/CT HISTORY: Lung carcinoma, subsequent, right Patient received 10 mCi F-18 FDG intravenously and delayed scanning was performed from the skull base to the mid thighs. A localization and attenuation correction CT scan was performed. Correlation prior nuclear medicine PET/CT dated 09/27/2021 Average mediastinal uptake SUV 1.7, average liver uptake SUV 2.3 Chest and neck: There is no cervical or supraclavicular adenopathy. No suspicious uptake. There is a port in the right pectoral region coursing via a jugular approach distal tip the catheter is at the l evel of the cavoatrial junction. Postop changes are noted the right hilar region, right upper lobe. N o mediastinal, axillary, or hilar adenopathy. Extensive emphysematous changes, scarring again noted. No evident lung mass. Irregular densities at the lung bases no longer seen, some minimal scarring emory pected. ABDOMEN: No evident adrenal mass. No liver mass, cystic focus centrally shows no uptake in stable. Pa tient is post cholecystectomy. No retroperitoneal adenopathy or suspicious uptake. There is no eviden t ascites. No pelvic adenopathy, atheromatous changes are present within the aorta Osseous structures show postop change to the lumbar spine. No suspicious uptake. IMPRESSION: No suspicious uptake is evident.
== END | disposition home or self-care (01) ==
LOC: RADPETMAIN 10:22
PROVIDERS: ATTEND Internal Medicine Hematology & Oncology
DX: C34.11 Malignant neoplasm of upper lobe, right bronchus or lung (principal)
CPT/HCPCS: 78815; A9552

== ENCOUNTER → 2022-08-01 | Outpatient (CLI) | payer MEDICARE, BC ==
--- NOTE | 2022-08-03 22:07 | PE ---
EXAMINATION TYPE: PET CT fusion skull to thigh DATE OF EXAM: 08/01/2022 COMPARISON: Prior PET/CT February 07, 2022 and older studies HISTORY: Lung cancer 2009 and gastric cancer 2017. TECHNIQUE: Following the intravenous administration of 10.32 mCi of F-18 FDG, whole body images are performed from the skull base to the midthigh. Images are reviewed on the computer in the coronal, a xial, and sagittal planes. Reconstructed rotating images are created on independent workstation and reviewed on the computer. A localization and attenuation correction CT is performed in conjunction with the PET scan. Blood glucose level was 84 SCAN: Subsequent Scan FINDINGS: SKULL BASE AND NECK: Mild uptake corresponds to proximal muscle left upper extremity could reflect in flammatory etiology. No new areas of abnormal hypermetabolic uptake. CHEST, MEDIASTINUM, AND HILAR REGION: No new areas of abnormal hypermetabolic uptake. Postsurgical changes to the right upper lung are redemonstrated. Mild to moderate emphysematous change in the lung apices is again seen. Surgical changes right hilar region. Prominent pulmonary arteries consistent w ith underlying pulmonary hypertension. ABDOMEN AND PELVIS: No new areas of abnormal hypermetabolic uptake. No adrenal masses. OSSEOUS STRUCTURES: No new areas of abnormal hypermetabolic uptake. OTHER CT: Right internal jugular Mediport catheter redemonstrated. Roughly 10 mm round hypodense lesi on favoring benign thin-walled cyst in the liver axial image 134 is redemonstrated. Surgical clips in the epigastric region are again seen. Mild to moderate calcified plaque of the aorta extends into br anch vessels. Postsurgical change lower lumbar spine. Grade 1 anterolisthesis L3 on L4. Cholecystecto my clips are redemonstrated. IMPRESSION: No suspicious hypermetabolic uptake to suggest active neoplastic recurrence.
== END | disposition home or self-care (01) ==
LOC: RADPETMAIN 07:56
PROVIDERS: ATTEND Internal Medicine Hematology & Oncology
DX: C34.11 Malignant neoplasm of upper lobe, right bronchus or lung (principal)
CPT/HCPCS: 78815; A9552

== ENCOUNTER → 2023-01-23 | Outpatient (CLI) | payer MEDICARE, BC ==
--- NOTE | 2023-01-23 14:50 | PE ---
EXAMINATION TYPE: PET CT fusion skull to thigh DATE OF EXAM: 01/23/2023 COMPARISON: Prior PET/CT August 01, 2022 and older studies. HISTORY: Lung cancer progress study .Lung cancer 2008 and gastric cancer 2016. Patient completed treatment in 2021. TECHNIQUE: Following the intravenous administration of 12.25 mCi of F-18 FDG, whole body images are performed from the skull base to the midthigh. Images are reviewed on the computer in the coronal, a xial, and sagittal planes. Reconstructed rotating images are created on independent workstation and reviewed on the computer. A localization and attenuation correction CT is performed in conjunction with the PET scan. Blood glucose level equals 90. SCAN: Subsequent Scan FINDINGS: SKULL BASE AND NECK: No new areas of abnormal hypermetabolic uptake. CHEST, MEDIASTINUM, AND HILAR REGION: No new areas of abnormal hypermetabolic uptake. Postsurgical changes to the right upper lung are redemonstrated. Moderate emphysematous change in the upper lungs is again seen. Surgical changes right hilar region are redemonstrated. Prominent pulmonary arteries c onsistent with underlying pulmonary artery hypertension is redemonstrated. ABDOMEN AND PELVIS: No new areas of abnormal hypermetabolic uptake. No adrenal masses. OSSEOUS STRUCTURES: No new areas of abnormal hypermetabolic uptake. OTHER CT: Right internal jugular Mediport catheter is redemonstrated. Roughly 10 mm round hypodense l esion favoring benign thin-walled cyst in the liver axial image 125 is redemonstrated. Surgical clips in the epigastric region just below diaphragm are again seen. Mild to moderate calcified plaque of t he aorta extends into branch vessels. Postsurgical change lower lumbar spine posteriorly is redemonst rated. Grade 1 anterolisthesis L3 on L4 is redemonstrated. Cholecystectomy clips are redemonstrated. IMPRESSION: No suspicious hypermetabolic uptake to suggest active neoplastic recurrence.
== END | disposition home or self-care (01) ==
LOC: RADPETMAIN 10:43
PROVIDERS: ATTEND Internal Medicine Hematology & Oncology
DX: C34.11 Malignant neoplasm of upper lobe, right bronchus or lung (principal)
CPT/HCPCS: 78815; A9552

== ENCOUNTER → 2023-07-23 | Outpatient (CLI) | payer MEDICARE, BC ==
--- NOTE | 2023-07-26 09:52 | PE ---
EXAMINATION TYPE: PET CT fusion skull to thigh DATE OF EXAM: 07/23/2023 CLINICAL INDICATION:Female, 62 years old with history of lung ca; TECHNIQUE: Following the intravenous administration of 8.3 mCi of F-18 FDG, whole body images are p erformed from the skull base to the midthigh. Images are reviewed on the computer in the coronal, ax ial, and sagittal planes. Reconstructed rotating images are created on independent workstation and r eviewed on the computer. A non-contrast CT is performed in conjunction with the PET scan. Glucose l evel 96 mg/dL CT DLP: 171 mGycm, Automated exposure control for dose reduction was used. COMPARISON: CT 07/11/2021, PET/CT 01/13/2023 most recent., FINDINGS: Mediastinal SUV mean is 2.2. Hepatic parenchyma SUV mean is 2.8. SKULL BASE AND NECK: No suspicious radiotracer activity. CHEST, MEDIASTINUM, AND HILAR REGION: No suspicious radiotracer activity. ABDOMEN AND PELVIS: No suspicious radiotracer activity. MUSCULOSKELETAL STRUCTURES: No suspicious radiotracer activity. OTHER CT: Atherosclerosis of the carotid bifurcations. There is right chest wall [id number] with t ip terminating in the superior vena cava. Surgical clips in the upper abdomen. The gallbladder surgic ally absent. Large amount stool in the right colon. The appendix is normal. IMPRESSION: No suspicious radiotracer activity.
== END | disposition home or self-care (01) ==
LOC: RADPETMAIN 10:48
PROVIDERS: ATTEND Internal Medicine Hematology & Oncology
DX: C34.11 Malignant neoplasm of upper lobe, right bronchus or lung (principal)
CPT/HCPCS: 78815; A9552

== ENCOUNTER → 2023-10-27 | Outpatient (CLI) | payer MEDICARE, BC ==
[2023-10-27 11:06] LABS: Basophils % (A) 1.6 %; Eosinophils # (A) 0.22 X 10*3/uL (0.04-0.35); Eosinophils % (A) 3.4 %; HCT 38.9 % (37.2-46.3); HGB 12.7 g/dL (12.0-15.0); Lymphocytes # (A) 1.77 X 10*3/uL (0.90-5.00); Lymphocytes % (A) 27.6 %; MCH 34.2 pg (27.0-32.0); MCHC 32.6 g/dL (32.0-37.0); MCV 104.9 FL (80.0-97.0); Mean Platelet Volume 9.5 FL (9.5-12.2); Monocytes # (A) 0.74 X 10*3/uL (0.20-1.00); Monocytes % (A) 11.5 %; NRBC Per 100 WBC 0 X 10*3/uL (0.00-0.01); Neutrophils # (A) 3.56 X 10*3/uL (1.80-7.70); Neutrophils % (A) 55.6 %; Platelet Count 253 X 10*3/uL (140-440); RBC 3.71 X 10*6/uL (4.10-5.20); RDW 13.6 % (11.5-14.5); WBC 6.41 X 10*3/uL (4.50-10.00)
[2023-10-27 11:46] LABS: ALT 15 U/L (8-44); AST 20 U/L (13-35); Albumin 4.5 g/dL (3.8-4.9); Albumin/Globulin Ratio 2.37 Ratio (1.60-3.17); Alkaline Phosphatase 74 U/L (41-126); BUN/Creat Ratio 22.33 Ratio (12.00-20.00); Blood Urea Nitrogen 26.8 mg/dL (9.0-27.0); Calcium 10.3 mg/dL (8.7-10.3); Chloride 106 mmol/L (96-109); Chol/HDL Ratio 2.33 Ratio; Globulin 1.9 g/dL (1.6-3.3); Glucose 84 mg/dL (70-110); LDL Cholesterol,Calculated 112.6 mg/dL (0.0-131.0); Potassium 4.5 mmol/L (3.5-5.5); Sodium 143 mmol/L (135-145); Total Bilirubin <0.2 mg/dL (0.3-1.2); Total Protein 6.4 g/dL (6.2-8.2)
== END | disposition home or self-care (01) ==
LOC: LABWHC1 08:03
PROVIDERS: ATTEND Family Medicine
DX: Z00.00 Encounter for general adult medical examination without abnormal findings (principal); D64.9 Anemia, unspecified; E55.9 Vitamin D deficiency, unspecified
CPT/HCPCS: 36415; 80053; 80061; 82306; 84443; 85025

== ENCOUNTER → 2023-10-30 | Outpatient (CLI) | payer MEDICARE, BC ==
--- NOTE | 2023-10-30 11:07 | US ---
EXAMINATION TYPE: US venous doppler duplex LE RT DATE OF EXAM: 10/30/2023 10:21 AM COMPARISON: NONE CLINICAL INDICATION: Female, 62 years old with history of M79.89 SWELLING RIGHT LOWER EXTREMITY; Samantha ent states pain behind the right knee. No other symptoms. SIDE PERFORMED: Right TECHNIQUE: The lower extremity deep venous system is examined utilizing real time linear array sonog vera with graded compression, doppler sonography and color-flow sonography. VESSELS IMAGED: Common Femoral Vein Deep Femoral Vein Greater Saphenous Vein * Femoral Vein Popliteal Vein Small Saphenous Vein * Proximal Calf Veins (* superficial vessels) Right Leg: Negative for DVT IMPRESSION: Grayscale, color doppler, spectral doppler imaging performed of the deep veins of the lo wer extremities. There is normal flow, compressibility, vascular waveforms.
== END | disposition home or self-care (01) ==
LOC: RADUSWWP 09:53
PROVIDERS: ATTEND Family Medicine
DX: M79.89 Other specified soft tissue disorders (principal)

== ENCOUNTER 2025-01-26 10:42 | Day surgery (SDC) | payer MEDICARE, BC ==
[2025-01-25 15:25] VITALS: BMI 20.2
[2025-01-26] MEDS: IOPAMIDOL-300 100ML BTL INJ ONE (11:28)
[2025-01-26 11:38] VITALS: RESP 20
--- NOTE | 2025-01-26 12:00 | P.OP ---
Date of Procedure: 01/26/25 Description of Procedure: Preoperative diagnosis: Presence of port, malfunctioning catheter Postoperative diagnosis: Same disruption of port catheter Procedure: Portogram with fluoroscopic interpretation Surgeon: Sonia Verduzco D.O. EBL: Minimal IV fluids: Not measured Urine output: None Complications: None immediately apparent Condition: Stable Operative indication and findings: Patient is a 64-year-old female who previously had cancer and in 2017 had a port placed for this. She has been cancer free for 1 year but keeps the port as she has had issues with recurrence. Recently, her port has not been functioning therefore she is here today for portogram. Procedure in detail: The right chest wall was prepped and draped in usual sterile fashion. A preprocedural timeout performed, all parties were in agreement. The port was accessed. It was flushed freely. A portogram was performed and the fluoroscopic image did reveal evidence of extravasation at the proximal portion of the catheter near the cuff. Due to this the procedure was concluded. The patient will need replacement of her catheter or removal pending her discussion with her surgeon. She seemed understand the plan and is willing to proceed.
--- NOTE | 2025-01-26 17:27 | IR ---
Fluoroscopy for port check [facility], , 01/26/2025 5:25 PM
== END 2025-01-26 11:36 | disposition home or self-care (01) ==
LOC: CATHCVL 10:42
PROVIDERS: ATTEND Surgery
DX: T82.514A Breakdown (mechanical) of infusion catheter, initial encounter (principal); C34.11 Malignant neoplasm of upper lobe, right bronchus or lung; J44.1 Chronic obstructive pulmonary disease with (acute) exacerbation; K21.00 Gastro-esophageal reflux disease with esophagitis, without bleeding; D51.1 Vitamin B12 deficiency anemia due to selective vitamin B12 malabsorption with proteinuria; I10 Essential (primary) hypertension; L23.1 Allergic contact dermatitis due to adhesives; M15.9 Polyosteoarthritis, unspecified; Z88.1 Allergy status to other antibiotic agents; Z88.2 Allergy status to sulfonamides; Z88.5 Allergy status to narcotic agent; Z88.8 Allergy status to other drugs, medicaments and biological substances; Z79.51 Long term (current) use of inhaled steroids; Z79.899 Other long term (current) drug therapy
CPT/HCPCS: 36598; Q9967